=== PATIENT | female | born 1985 | race Two or more races ===

== ENCOUNTER 2021-01-08 12:07 | Outpatient (REF) | payer OTHER, SELFPAY ==
--- NOTE | ~2021-01-08 | XR_ITS ---
EXAMINATION: XR KNEE, LEFT CLINICAL INFORMATION: Pain COMPARISON: None TECHNIQUE: Four views of the left knee. FINDINGS: Bones and soft tissues are normal. No fracture or joint effusion. Alignment is anatomic. Joint spaces are well maintained. No abnormal soft tissue calcification. XR/XR knee LT 4V IMPRESSION: Normal left knee.
== END 2021-01-08 12:08 | disposition home or self-care (01) ==
LOC: HO.XRAY 12:07
PROVIDERS: PCP Pediatrics; Referring Provider Pediatrics; Visit Provider General Practice
DX: M25.562 Pain in left knee (principal); M79.89 Other specified soft tissue disorders
CPT/HCPCS: 73564

== ENCOUNTER 2022-08-14 11:29 | Outpatient (REF) | payer OTHER, SELFPAY ==
--- NOTE | 2022-08-14 08:45 | EMG_ITS ---
Please see scanned EMG / Nerve Conduction Report. MTDD
== END 2022-08-14 11:30 | disposition home or self-care (01) ==
LOC: HO.NEURO 11:29
PROVIDERS: PCP Pediatrics; Visit Provider Emergency Medicine
DX: G56.02 Carpal tunnel syndrome, left upper limb (principal)
CPT/HCPCS: 95885; 95913

== ENCOUNTER 2023-01-15 12:34 | Outpatient (REF) | payer OTHER, SELFPAY ==
[2023-01-15 15:17] LABS: Alanine Aminotransferase 26 U/L (0-31); Albumin Level 4.5 g/dL (3.5-5.0); Alkaline Phosphatase 72 U/L (39-117); Aspartate Amino Transferase 17 U/L (5-31); Bilirubin Direct 0.3 mg/dL (0.0-0.5); Bilirubin Total 0.6 mg/dL (0.0-1.0); Total Protein 7.5 g/dL (6.5-8.0)
[2023-01-15 15:37] LABS: TSH reflex Free T4 2.02 uIU/mL (0.32-4.0)
== END 2023-01-15 12:35 | disposition home or self-care (01) ==
LOC: HO.CHCLDS 12:34
PROVIDERS: Visit Provider Pediatrics
DX: B35.1 Tinea unguium (principal); G43.909 Migraine, unspecified, not intractable, without status migrainosus; F32.A Depression, unspecified
CPT/HCPCS: 36415; 80076; 84443

== ENCOUNTER 2023-01-21 11:57 | Outpatient (AMB) | payer OTHER, SELFPAY ==
--- NOTE | 2023-01-21 11:57 | A.OFFVIS_ITS ---
Intake Intake Visit Reasons: Issues w/urethra (seen teresa) Intake Note: New Patient presents for initial visit issues with urethra Urology Medications: none Blood Thinner: none Telecom Analyst Required: No Accompanied by: Self / Same As Patient Allergies cefaclor [From CECLOR] Allergy (Unknown, Unverified 01/21/23 12:22) ANGIOEDEMA Penicillins [PENICILLINS] Allergy (Unknown, Unverified 01/21/23 12:22) HIVES Medication List - Last Reconciled 01/21/23 by MARGARITA Celestin- budesonide-formoterol 160-4.5 mcg/actuation (Symbicort) 2 puffs inhalation BID buspirone 5 mg PO BID clonazepam 0.5 mg PO DAILY PRN gabapentin 300 mg PO BID sertraline 100 mg PO DAILY HPI HPI Comments History of Present Illness Details Edmond is a very pleasant 37-year-old female patient of Dr. Perdomo. She presents to the office today as a new patient for urethral stricture. In discussion with the patient today she reports to be feeling and doing well. She discusses her previous surgical history with Dr. Cagle in January of 2020 at which time she underwent dilation of urethral stricture in cystoscopy in the OR. She has been self catheterizing once per day and finds this to be helping. She states, If I dont catheterize myself I have to push to urinate or I have a hard time going to the bathroom. She otherwise denies any urinary issues or concerns. When asked she denies urinary urgency, urinary frequency, incontinence, nocturia, hematuria, dysuria, foul smelling urine, changes to urinary stream, flank pain, fever, and or chills. She is happy with her current voiding parameters when self catheterizing/dialating once daily. In office urinalysis results reviewed with the patient. Review of Systems Const All systems reviewed & are unremarkable except as noted in HPI and below Reports no additional complaints Eyes Reports no additional complaints ENT Reports no additional complaints Card Reports no additional complaints Resp Reports no additional complaints GI Reports no additional complaints Reports as per HPI Musc Reports no additional complaints Neuro Reports no additional complaints Psych Reports no additional complaints Endo Reports no additional complaints Hector/Lymph Reports no additional complaints Aller/Immun Reports no additional complaints Physical Exam Const General: cooperative, healthy appearing, comfortable, no acute distress, well developed, alert and awake Orientation/consciousness: patient oriented x3 Limitations: no limitations HEENT Head: Yes normal to inspection, Yes normocephalic and Yes atraumatic Ears: hearing grossly normal bilaterally Eyes General: appearance normal, both eyes and all related structures Neck Neck: Yes normal visual inspection and Yes trachea midline Chest Chest palpation & inspection: normal inspection of the chest Resp Effort & Inspection: normal respiratory effort and able to speak in complete sentences Cardio Rate: regular rate GI Inspection: Yes normal to inspection General: Yes no CVA tenderness External Female Exam: other (ureteral stricture ) Back/Spine/Pelvis Back: no CVA tenderness Skin General skin exam: no rashes or lesions noted Neuro General: patient oriented x3 Extrem General: Yes normal to inspection Psych Appearance: grossly normal and well kempt Mental Status: mental status grossly normal Speech and movement: Normal speech and movement present and Clear speech present Affect: normal affect Attitude: cooperative Thought process: Normal thought process present Thought content: Normal thought content present Insight: Good insight present (Psych) Judgement: Good judgement present (Psych) Results AMB Urinalysis, Automated UA Leukoctes 15 Miquel/uL Last Edit by [employer] on 01/21/23 12:12 UA Nitrite Last Edit by [employer] on 01/21/23 12:12 UA Urobilinogen 0.2 mg/dL Last Edit by [employer] on 01/21/23 12:12 UA Protein 0 mg/dL Last Edit by [employer] on 01/21/23 12:12 UA pH 6.0 Last Edit by [employer] on 01/21/23 12:12 UA Blood 10 [place]/uL Last Edit by [employer] on 01/21/23 12:12 UA Specific [place] 1.030 Last Edit by [employer] on 01/21/23 12:12 UA Ketone Last Edit by [employer] on 01/21/23 12:12 UA Bilirubin 0 mg/dL Last Edit by [employer] on 01/21/23 12:12 UA Glucose 0 mg/dL Last Edit by [employer] on 01/21/23 12:12 Results Reviewed Results Reviewed: Laboratory Last Values Urine pH (Auto) 6.0 01/21/23 11:59 Specific [place] (Auto) 1.030 01/21/23 11:59 Urine Protein (Auto) 0 mg/dL 01/21/23 11:59 Glucose (UA)(Auto) 0 mg/dL 01/21/23 11:59 Urine Blood (Auto) 10 [place]/uL 01/21/23 11:59 Urine Bilirubin (Auto) 0 mg/dL 01/21/23 11:59 Urine Urobilinogen (Auto) 0.2 mg/dL 01/21/23 11:59 Leukocyte Esterase (Auto) 15 Miquel/uL 01/21/23 11:59 Assessment & Plan Assessment & Plan (1) History of urethral stricture: Code(s): Z87.448 - Personal history of other diseases of urinary system (2) Unspecified urethral stricture, female: Code(s): N35.92 - Unspecified urethral stricture, female Plan In office urinalysis results reviewed with the patient today; as noted above Patient in need of 16 macedonian daily catheter. Patient will self dilate with 16 macedonian catheter once daily as discussed. Script for catheters will be sent to [facility] in [place] as requested. Patient otherwise denies any urinary issues or concerns at this time. Follow up in one year; or sooner with any questions, concerns, or issues. Orders: Orders AMB Urinalysis Automated Today Z13.9 - Encounter for screening, unspecified Patient Instructions: The patient had an opportunity to ask questions regarding the treatment plan. All questions were answered. Physical exam, labs, and imaging were discussed and reviewed in detail. As well as risks, benefits, and discussion of treatment choices. No major barriers to understanding were identified. The patient expressed understanding and agreement with the above treatment plan. The patient was made aware they should contact our office by phone for worsening of their current condition, the appearance of new symptoms, or with any questions or concerns. Compliance is encouraged with any medications and follow up testing that is ordered. It is a privilege to be allowed the opportunity to participate in? your urological care.? Again, if you have any questions or concerns If you have any questions or concerns please do not hesitate to contact me. The office is [phone]. This note is constructed using voice recognition software. While every effort has been made to ensure accuracy hydraulic chair assembler errors may have been included. Yours sincerely, DIANNA Celestin Coding Level of Care Code New Pt Level 3 (43519) Diagnoses History of urethral stricture Z87.448 Unspecified urethral stricture, female N35.92
== END 2023-01-21 12:19 | disposition home or self-care (01) ==
PROVIDERS: PCP Pediatrics; Visit Provider Nurse Practitioner Family
DX: Z87.448 Personal history of other diseases of urinary system (principal); N35.92 Unspecified urethral stricture, female
CPT/HCPCS: 99203

== ENCOUNTER → 2023-01-21 11:57 | Outpatient (BNVA) | payer OTHER, SELFPAY | PROVIDERS: PCP Pediatrics; Visit Provider Nurse Practitioner Family | DX: N35.92 Unspecified urethral stricture, female (principal); Z87.448 Personal history of other diseases of urinary system | CPT/HCPCS: 99202 ==

== ENCOUNTER 2024-01-16 10:29 | Outpatient (REF) | payer OTHER, SELFPAY ==
[2024-01-16 14:00] LABS: MANUAL DIFF FLAG NO
[2024-01-16 14:05] LABS: Basophils Percent Auto 0.5 % (0-2); Eosinophils Absolute Auto 0.1 X10*3/uL (0.0-0.4); Eosinophils Percent Auto 1.8 % (0-4); Hemoglobin 14.6 g/dl (12.0-16.0); Imm Gran Abs Auto 0.02 X10*3/uL (0.00-0.03); Imm Gran Pct Auto 0.4 % (0.0-0.4); Lymphocytes Absolute Auto 1.1 X10*3/uL (1.2-4.9); Lymphocytes Percent Auto 20.2 % (20-40); Mean Corpuscular HGB Conc 34.8 g/dl (31.0-35.0); Mean Corpuscular Hemoglobin 31.1 pg (27.0-33.0); Mean Corpuscular Volume 89.4 fL (80.0-98.0); Mean Platelet Volume 11.1 fL (9.4-12.3); Monocytes Absolute Auto 0.4 X10*3/uL (0.1-1.2); Monocytes Percent Auto 6.8 % (2-11); Neutrophils Absolute Auto 3.9 x10*3/uL (2.0-8.3); Neutrophils Percent Auto 70.3 % (45-73); Platelet Count 261 X10*3/uL (160-400); White Blood Count 5.6 X10*3/uL (4.8-10.8)
[2024-01-16 14:25] LABS: Anion Gap 10 (12-20); Blood Urea Nitrogen 8 mg/dL (9-16); Calcium 9.4 mg/dL (8.4-10.2); Carbon Dioxide 26 mmol/L (22-29); Chloride 107 mmol/L (96-108); Estimated Glomerular Filt Rate > 60; Glucose Fasting 95 mg/dL (60-99); Potassium 4.2 mmol/L (3.3-5.1); Sodium 139 mmol/L (135-145)
[2024-01-16 14:42] LABS: TSH reflex Free T4 2.27 uIU/mL (0.32-4.0)
[2024-01-16 14:49] LABS: Erythrocyte Sedimentation Rate 8 MM/HR (0-20)
[2024-01-18 03:50] LABS: Syphilis Screen Nonreactive (Nonreactive)
[2024-01-18 04:18] LABS: HIV AB/AG Nonreactive (Nonreactive); HIV Num 1 0.06 S/CO (0.00-0.99); ~HepC Num1 0.18 S/CO (0.00-0.79); ~Hepatitis C Antibody Nonreactive (Nonreactive)
[2024-01-19 09:18] LABS: Immunoglobulin M 240 mg/dL (50-300)
[2024-01-19 11:43] LABS: Anti Nuclear Antibody Screen NEGATIVE (NEGATIVE)
[2024-01-19 16:44] LABS: Herpes Simplex Type 2 IgG <0.90 index
[2024-01-20 15:04] LABS: C.Trachomatis RNA TMA, Rectal NOT DETECTED; N.Gonorrhoeae RNA TMA, Rectal NOT DETECTED
== END 2024-01-16 10:30 | disposition home or self-care (01) ==
LOC: HO.CHCLDS 10:29
PROVIDERS: Visit Provider Pediatrics
DX: R21 Rash and other nonspecific skin eruption (principal)
CPT/HCPCS: 36415; 80048; 82784; 84443; 85025; 85652; 86038; 86695; 86696; 86780; 86803; 87389; 87491; 87591

== ENCOUNTER 2024-01-19 08:40 | Outpatient (AMB) | payer OTHER, SELFPAY ==
--- NOTE | 2024-01-19 08:44 | A.OFFVIS_ITS ---
Intake Visit Reasons: 1yr follow up Intake Note: Patient presents for follow up visit on: urethral stricture Urology Medications: none Blood Thinner: none PVR: * Patient CIC* Business Investor Required: No Accompanied by: Self / Same As Patient Allergies cefaclor [From CECLOR] Allergy (Unknown, Unverified 01/19/24 09:23) ANGIOEDEMA Penicillins [PENICILLINS] Allergy (Unknown, Unverified 01/19/24 09:23) HIVES Medication List - Last Reconciled 01/19/24 by MARGARITA Celestin- albuterol sulfate 90 mcg/actuation inhalation budesonide-formoterol 160-4.5 mcg/actuation (Symbicort) 2 puffs inhalation BID buspirone 5 mg PO BID catheter As directed once daily for urethral dilation clonazepam 0.5 mg PO DAILY PRN gabapentin 300 mg PO BID sertraline 100 mg PO DAILY tadalafil (Cialis) 5 mg PO DAILY 90 days HPI Comments Details: Edmond is a very pleasant 38-year-old female patient of Dr. Perdomo. She presents to the office today for follow-up of her urethral stricture and incomplete bladder emptying. In discussion with the patient today she reports to be feeling and doing well. She reports since her last office visit here approximately 1 year ago she has had 1 urinary tract infection while in [place] visiting her mom. She discusses continuing to CIC up to 3 times per day. She reports noting ongoing issues with bladder pressure and pain at her urethra upon catheterization. She has a previous surgical history with Dr. Cagle in January of 2020 at which time she underwent dilation of urethral stricture in cystoscopy in the OR. She denies urinary urgency, urinary frequency, incontinence, nocturia, hematuria, foul smelling urine, changes to urinary stream, flank pain, fever, and or chills. In office urinalysis results reviewed with the patient. PVR 0ml's. Review of Systems Const All systems reviewed & are unremarkable except as noted in HPI and below Reports no additional complaints Eyes Reports no additional complaints ENT Reports no additional complaints Card Reports no additional complaints Resp Reports no additional complaints GI Reports no additional complaints Reports as per HPI Musc Reports no additional complaints Neuro Reports no additional complaints Psych Reports no additional complaints Endo Reports no additional complaints Hector/Lymph Reports no additional complaints Aller/Immun Reports no additional complaints Physical Exam Const General: cooperative, healthy appearing, comfortable, no acute distress, well developed, alert and awake Orientation/consciousness: patient oriented x3 Limitations: no limitations HEENT Head: Yes normal to inspection, Yes normocephalic and Yes atraumatic Ears: hearing grossly normal bilaterally Eyes General: appearance normal, both eyes and all related structures Neck Neck: Yes normal visual inspection and Yes trachea midline Chest Chest palpation & inspection: normal inspection of the chest Resp Effort & Inspection: normal respiratory effort and able to speak in complete sentences Cardio Rate: regular rate GI Inspection: Yes normal to inspection General: Yes no CVA tenderness External Female Exam: other (ureteral stricture ) Back/Spine/Pelvis Back: no CVA tenderness Skin General skin exam: no rashes or lesions noted Neuro General: patient oriented x3 Extrem General: Yes normal to inspection Psych Appearance: grossly normal and well kempt Mental Status: mental status grossly normal Speech and movement: Normal speech and movement present and Clear speech present Affect: normal affect Attitude: cooperative Thought process: Normal thought process present Thought content: Normal thought content present Insight: Fair insight present (Psych) Judgement: Fair judgement present (Psych) Office Procedures Post Void Residual Post Residual Void Post Void Residual (PVR): [id number] Void Residual by ultrasound Results AMB Urinalysis, Automated UA Leukoctes 15 Miquel/uL Last Edit by Katina Alexander on 01/19/24 09:09 UA Nitrite Negative Last Edit by Katina Alexander on 01/19/24 09:09 UA Urobilinogen 0.2 mg/dL Last Edit by [employer] Alexander on 01/19/24 09:09 UA Protein 15 mg/dL Last Edit by Katina Alexander on 01/19/24 09:09 UA pH 6.0 Last Edit by Katina Alexander on 01/19/24 09:09 UA Blood 80 [place]/uL Last Edit by Katina Alexander on 01/19/24 09:09 UA Specific [place] 1.025 Last Edit by Katina Alexander on 01/19/24 09:09 UA Ketone Negative Last Edit by Katina Alexander on 01/19/24 09:09 UA Bilirubin 0 mg/dL Last Edit by Katina Alexander on 01/19/24 09:09 UA Glucose 0 mg/dL Last Edit by Katina Alexander on 01/19/24 09:09 Results Reviewed Results Reviewed: Laboratory Last Values Urine pH (Auto) 6.0 01/19/24 08:54 Specific [place] (Auto) 1.025 01/19/24 08:54 Urine Protein (Auto) 15 mg/dL 01/19/24 08:54 Glucose (UA)(Auto) 0 mg/dL 01/19/24 08:54 Urine Ketones (Auto) Negative 01/19/24 08:54 Urine Blood (Auto) 80 [place]/uL 01/19/24 08:54 Urine Nitrite (Auto) Negative 01/19/24 08:54 Urine Bilirubin (Auto) 0 mg/dL 01/19/24 08:54 Urine Urobilinogen (Auto) 0.2 mg/dL 01/19/24 08:54 Leukocyte Esterase (Auto) 15 [place]iqu[place]/uL 01/19/24 08:54 Assessment & Plan Assessment & Plan (1) Unspecified urethral stricture, female: Code(s): N35.92 - Unspecified urethral stricture, female Category: Medical (2) History of urethral stricture: Code(s): Z87.448 - Personal history of other diseases of urinary system Category: Medical Plan In office urinalysis results reviewed with the patient today; as noted above. Start Cialis as discussed and prescribed. Discussed at length potential causes of lower urinary tract symptoms patient is experiencing. Discussed possible near future in office cystoscopy for further assessment evaluation. Will obtain retroperitoneal ultrasound for further assessment evaluation. PVR 0 mL. Continue to CIC up to 3 times per day. Follow-up in 1-3 months with imaging to be completed prior and PVR at next office visit; or sooner with any issues, concerns, and or questions. Orders: Orders AMB Urinalysis Automated Today Z13.9 - Encounter for screening, unspecified AMB Post Void Residual by ultrasound Today N35.92 - Unspecified urethral stricture, female US retroperitoneal comp Today N35.92 - Unspecified urethral stricture, female, R33.9 - Retention of urine, unspecified, Z87.448 - Personal history of other diseases of urinary system Medications: New tadalafil (Cialis) [id number] [facility] [id number] Member [id number] 5 mg PO DAILY 90 tabs 0RF 90 days Patient Instructions: The patient had an opportunity to ask questions regarding the treatment plan. All questions were answered. Physical exam, labs, and imaging were discussed and reviewed in detail. As well as risks, benefits, and discussion of treatment choices. No major barriers to understanding were identified. The patient expressed understanding and agreement with the above treatment plan. The patient was made aware they should contact our office by phone for worsening of their current condition, the appearance of new symptoms, or with any questions or concerns. Compliance is encouraged with any medications and follow up testing that is ordered. It is a privilege to be allowed the opportunity to participate in? your urological care.? Again, if you have any questions or concerns If you have any questions or concerns please do not hesitate to contact me. The office is [phone]. This note is constructed using voice recognition software. While every effort has been made to ensure accuracy business office assistant errors may have been included. Yours sincerely, MARGARITA Celestin-YOLANDA Coding Level of Care Code Est Pt Level 4 (37949) Diagnoses Unspecified urethral stricture, female N35.92 History of urethral stricture Z87.448 CPT Codes Post Residual Void - PVR CPT Code: 79724-[id number] Void Residual by ultrasound ([id number])
== END 2024-01-19 09:21 | disposition home or self-care (01) ==
PROVIDERS: PCP Pediatrics; Visit Provider Nurse Practitioner Family
DX: N35.92 Unspecified urethral stricture, female (principal); Z87.448 Personal history of other diseases of urinary system; Z13.9 Encounter for screening, unspecified
CPT/HCPCS: 99214

== ENCOUNTER 2024-01-19 08:40 | Outpatient (REF) | payer OTHER, SELFPAY ==
[2024-01-19 16:11] LABS: Urine Cytology See Pathology rpt
== END 2024-01-19 08:41 | disposition home or self-care (01) ==
LOC: HO.LNP 08:40
PROVIDERS: PCP Pediatrics; Visit Provider Nurse Practitioner Family
DX: R33.9 Retention of urine, unspecified (principal); N35.92 Unspecified urethral stricture, female; Z87.448 Personal history of other diseases of urinary system; Z13.9 Encounter for screening, unspecified
CPT/HCPCS: 51798; 81003; 88112; 99212

== ENCOUNTER 2024-01-23 10:49 | Outpatient (REF) | payer OTHER, SELFPAY ==
--- NOTE | ~2024-01-23 | US_ITS ---
EXAMINATION: US RETROPERITONEAL COMPLETE (RENAL) CLINICAL INFORMATION: Unspecified urethral stricture, female. COMPARISON: Renal ultrasound 01/29/2018. TECHNIQUE: Real-time imaging of the kidneys and bladder. Limited visualization due to bowel gas. FINDINGS: RIGHT KIDNEY: 10.1 x 5.0 x 4.3 cm (SAG x AP x TRV). No hydronephrosis. No renal calculi. Renal cortical thickness is normal. Limited visualization. LEFT KIDNEY: 9.7 x 5.7 x 5.1 cm (SAG x AP x TRV). Mild fullness left renal collecting system. No renal calculi. Renal cortical thickness is normal. Limited visualization. BLADDER: Moderately well distended. Bilateral ureteral jets are demonstrated. Prevoid bladder volume is 124 mL. Postvoid bladder volume is 2.9 mL. US/US retroperitoneal comp IMPRESSION: Mild fullness left renal collecting system. No renal calculi appreciated. Electronically signed by: Helen Smith MD 02/23/2024 11:21 AM EDT
== END 2024-01-23 10:50 | disposition home or self-care (01) ==
LOC: HO.US 10:49
PROVIDERS: PCP Pediatrics; Visit Provider Nurse Practitioner Family
DX: N35.92 Unspecified urethral stricture, female (principal); R33.9 Retention of urine, unspecified; Z87.448 Personal history of other diseases of urinary system
CPT/HCPCS: 76770

== ENCOUNTER 2024-03-25 09:17 | Outpatient (AMB) | payer OTHER, SELFPAY ==
--- NOTE | 2024-03-25 09:19 | A.OFFVIS_ITS ---
Intake Visit Reasons: 2m/US(set) Intake Note: Patient presents for follow up visit on: urethral stricture Urology Medications: none Blood Thinner: none * Patient CIC* Beekeeper Required: No Accompanied by: Self / Same As Patient Allergies cefaclor [From CECLOR] Allergy (Unknown, Unverified 03/25/24 09:48) ANGIOEDEMA Penicillins [PENICILLINS] Allergy (Unknown, Unverified 03/25/24 09:48) HIVES Medication List - Last Reconciled 03/25/24 by MARGARITA Celestin- albuterol sulfate 90 mcg/actuation inhalation budesonide-formoterol 160-4.5 mcg/actuation (Symbicort) 2 puffs inhalation BID buspirone 5 mg PO BID catheter As directed once daily for urethral dilation clonazepam 0.5 mg PO DAILY PRN gabapentin 300 mg PO BID nitrofurantoin macrocrystal 100 mg PO BID 7 days phenazopyridine 100 mg PO Q8H 6 doses sertraline 100 mg PO DAILY HPI Comments Details: Edmond is a very pleasant 38-year-old female patient of Dr. Perdomo. She presents to the office today for follow-up of her urethral stricture and incomplete bladder emptying. In discussion with the patient today she reports to be feeling and doing well. Of note, patient was seen approximately 2 months ago at which time a renal ultrasound was ordered for further assessment evaluation. These results were reviewed with the patient today. Bilateral kidneys with no calculi and or hydronephrosis. BUN: 01/30 Creatinine: 24 She continues to CIC typically at night while in the shower. She reports her main concern is dysuria she experiences status post catheterization. She reports typically she experiences episodes of dysuria 1-2 urinations after she dilates her urethra and finds this somewhat bothersome. She also reports noting intermittent episodes of UTI like symptoms with urge, frequency, and dysuria. She currently denies any bothersome urinary issues at this time however reports symptoms very data day. She has a previous surgical history with Dr. Cagle in January of 2020 at which time she underwent dilation of urethral stricture in cystoscopy in the OR. She currently denies urinary urgency, urinary frequency, incontinence, nocturia, hematuria, foul smelling urine, changes to urinary stream, flank pain, fever, and or chills. She reports having stopped 5 mg of Cialis daily for bladder stability as she had been experiencing heartburn. She otherwise offers no other issues or concerns at this time. Review of Systems Const All systems reviewed & are unremarkable except as noted in HPI and below Reports no additional complaints Eyes Reports no additional complaints ENT Reports no additional complaints Card Reports no additional complaints Resp Reports no additional complaints GI Reports no additional complaints Reports as per HPI Musc Reports no additional complaints Neuro Reports no additional complaints Psych Reports no additional complaints Endo Reports no additional complaints Hector/Lymph Reports no additional complaints Aller/Immun Reports no additional complaints Physical Exam Const General: cooperative, healthy appearing, comfortable, no acute distress, well developed, alert and awake Orientation/consciousness: patient oriented x3 Limitations: no limitations HEENT Head: Yes normal to inspection, Yes normocephalic and Yes atraumatic Ears: hearing grossly normal bilaterally Eyes General: appearance normal, both eyes and all related structures Neck Neck: Yes normal visual inspection and Yes trachea midline Chest Chest palpation & inspection: normal inspection of the chest Resp Effort & Inspection: normal respiratory effort and able to speak in complete sentences Cardio Rate: regular rate GI Inspection: Yes normal to inspection General: Yes no CVA tenderness External Female Exam: other (ureteral stricture ) Back/Spine/Pelvis Back: no CVA tenderness Skin General skin exam: no rashes or lesions noted Neuro General: patient oriented x3 Extrem General: Yes normal to inspection Psych Appearance: grossly normal and well kempt Mental Status: mental status grossly normal Speech and movement: Normal speech and movement present and Clear speech present Affect: normal affect Attitude: cooperative Thought process: Normal thought process present Thought content: Normal thought content present Insight: Fair insight present (Psych) Judgement: Fair judgement present (Psych) Results Reviewed Results Reviewed: Date of Service: 01/23/24 EXAMINATION: US RETROPERITONEAL COMPLETE (RENAL) FINDINGS: RIGHT KIDNEY: 10.1 x 5.0 x 4.3 cm (SAG x AP x TRV). No hydronephrosis. No renal calculi. Renal cortical thickness is normal. Limited visualization. LEFT KIDNEY: 9.7 x 5.7 x 5.1 cm (SAG x AP x TRV). Mild fullness left renal collecting system. No renal calculi. Renal cortical thickness is normal. Limited visualization. BLADDER: Moderately well distended. Bilateral ureteral jets are demonstrated. Prevoid bladder volume is 124 mL. Postvoid bladder volume is 2.9 mL. IMPRESSION: Mild fullness left renal collecting system. No renal calculi appreciated. Assessment & Plan Assessment & Plan (1) Incomplete bladder emptying: Code(s): R33.9 - Retention of urine, unspecified Category: Medical (2) Unspecified urethral stricture, female: Code(s): N35.92 - Unspecified urethral stricture, female Category: Medical (3) History of urethral stricture: Code(s): Z87.448 - Personal history of other diseases of urinary system Category: Medical Plan Recent renal imaging results reviewed with the patient today; as noted above. Recent BUN and creatinine results reviewed with the patient today; as noted above. Stop Cialis. Prescription provided for UTI prescription; however discussed importance of collecting urine and or calling office prior to initiation of medication. Continue to catheterize 1 time per day as discussed. Discussed UTI prevention with D mannose supplement, vitamin-C, increasing fluid intake, behavioral therapy with timed voiding, perineal hygiene and postcoital voiding, and management of constipation with stool softeners and increased fiber intake. Follow-up in 3 months; or sooner with any issues, concerns, and or questions. Medications: New phenazopyridine 100 mg PO Q8H 6 doses 6 tabs 2RF M54.50 - Low back pain, unspecified, R31.9 - Hematuria, unspecified nitrofurantoin macrocrystal must administer with a meal/food 100 mg PO BID 7 days 14 caps 3RF N39.0 - Urinary tract infection, site not specified Discontinued tadalafil (Cialis) [id number] [facility] [id number] Member [id number] Discontinued Reason: Doctor's Order 5 mg PO DAILY 90 days 90 tabs 0RF Patient Instructions: The patient had an opportunity to ask questions regarding the treatment plan. All questions were answered. Physical exam, labs, and imaging were discussed and reviewed in detail. As well as risks, benefits, and discussion of treatment choices. No major barriers to understanding were identified. The patient expre ssed understanding and agreement with the above treatment plan. The patient was made aware they should contact our office by phone for worsening of their current condition, the appearance of new symptoms, or with any questions or concerns. Compliance is encouraged with any medications and follow up testing that is ordered. It is a privilege to be allowed the opportunity to participate in? your urological care.? Again, if you have any questions or concerns If you have any questions or concerns please do not hesitate to contact me. The office is [phone]. This note is constructed using voice recognition software. While every effort has been made to ensure accuracy supervisor specialty plant errors may have been included. Yours sincerely, DIANNA Celestin Coding Level of Care Code Est Pt Level 4 (25753) Diagnoses Incomplete bladder emptying R33.9 Unspecified urethral stricture, female N35.92 History of urethral stricture Z87.448 Time Spent (min) 30
== END 2024-03-25 09:49 | disposition home or self-care (01) ==
PROVIDERS: PCP Pediatrics; Visit Provider Nurse Practitioner Family
DX: R33.9 Retention of urine, unspecified (principal); N35.92 Unspecified urethral stricture, female; Z87.448 Personal history of other diseases of urinary system
CPT/HCPCS: 99214

== ENCOUNTER → 2024-03-25 09:17 | Outpatient (BNVA) | payer OTHER, SELFPAY | PROVIDERS: PCP Pediatrics; Visit Provider Nurse Practitioner Family | DX: R33.9 Retention of urine, unspecified (principal); N35.92 Unspecified urethral stricture, female; Z87.448 Personal history of other diseases of urinary system | CPT/HCPCS: 99212 ==

== ENCOUNTER 2024-06-04 14:46 | Outpatient (REF) | payer OTHER, SELFPAY | END 2024-06-04 14:47 | disposition home or self-care (01) | LOC: HO.CHCLNP 14:46 | PROVIDERS: Visit Provider Pediatrics | DX: L02.32 Furuncle of buttock (principal) | CPT/HCPCS: 87070; 87205 ==

== ENCOUNTER 2024-07-01 09:16 | Outpatient (AMB) | payer OTHER, SELFPAY ==
--- NOTE | 2024-07-01 09:32 | A.OFFVIS_ITS ---
Intake Visit Reasons: 3 month follow up Intake Note: Patient presents for follow up visit on: urethral stricture Urology Medications: none Blood Thinner: none * Patient CIC* Event Crew Technician Required: No Accompanied by: Self / Same As Patient Allergies cefaclor [From CECLOR] Allergy (Unknown, Unverified 07/01/24 10:06) ANGIOEDEMA Penicillins [PENICILLINS] Allergy (Unknown, Unverified 07/01/24 10:06) HIVES Medication List - Last Reconciled 07/01/24 by MARGARITA Celestin- albuterol sulfate 90 mcg/actuation inhalation budesonide-formoterol 160-4.5 mcg/actuation (Symbicort) 2 puffs inhalation BID buspirone 5 mg PO BID catheter As directed once daily for urethral dilation clonazepam 0.5 mg PO DAILY PRN gabapentin 300 mg PO BID sertraline 100 mg PO DAILY HPI Comments Details: Edmond is a very pleasant 39-year-old female patient of Dr. Perdomo. She presents to the office today for follow-up of her urethral stricture and incomplete bladder emptying. In discussion with the patient today she reports to be feeling and doing well. She reports feeling urojet prior to intermittent catheterization has been helpful in pain and dysuria she had been experiencing. She does report having had an episode of UTI like symptoms and following up with her PCP at which time she was noted to have a urinary tract infection. She currently denies any bothersome urinary issues. She denies any UTI like symptoms at this time. In office urinalysis results reviewed with the patient today. She continues to dilate for urethral stricture. She discusses her upcoming appointment with her PCP to discuss weight management. Previous workup has included a retroperitoneal ultrasound 01/30 noting bilateral kidneys with no calculi and or hydronephrosis. Moderately well distended. Bilateral ureteral jets are demonstrated. Prevoid bladder volume is 124 mL. Postvoid bladder volume is 3 mL. BUN: 01/30 8 Creatinine: 01/30 0.71 She continues to dilate at night while in the shower. She has a previous surgical history with Dr. Cagle in January of 2020 at which time she underwent dilation of urethral stricture in cystoscopy in the OR. She currently denies urinary urgency, urinary frequency, incontinence, nocturia, hematuria, foul smelling urine, changes to urinary stream, flank pain, fever, and or chills. She previously trialed 5 mg of Cialis daily for bladder stability however experienced heartburn therefore this was discontinued. She otherwise offers no other issues or concerns at this time. Review of Systems Const All systems reviewed & are unremarkable except as noted in HPI and below Reports no additional complaints Eyes Reports no additional complaints ENT Reports no additional complaints Card Reports no additional complaints Resp Reports no additional complaints GI Reports no additional complaints Reports as per HPI Musc Reports no additional complaints Neuro Reports no additional complaints Psych Reports no additional complaints Endo Reports no additional complaints Hector/Lymph Reports no additional complaints Aller/Immun Reports no additional complaints Physical Exam Const General: cooperative, healthy appearing, comfortable, no acute distress, well developed, alert and awake Orientation/consciousness: patient oriented x3 Limitations: no limitations HEENT Head: Yes normal to inspection, Yes normocephalic and Yes atraumatic Ears: hearing grossly normal bilaterally Eyes General: appearance normal, both eyes and all related structures Neck Neck: Yes normal visual inspection and Yes trachea midline Chest Chest palpation & inspection: normal inspection of the chest Resp Effort & Inspection: normal respiratory effort and able to speak in complete sentences Cardio Rate: regular rate GI Inspection: Yes normal to inspection General: Yes no CVA tenderness External Female Exam: other (ureteral stricture ) Back/Spine/Pelvis Back: no CVA tenderness Skin General skin exam: no rashes or lesions noted Neuro General: patient oriented x3 Extrem General: Yes normal to inspection Psych Appearance: grossly normal and well kempt Mental Status: mental status grossly normal Speech and movement: Normal speech and movement present and Clear speech present Affect: normal affect Attitude: cooperative Thought process: Normal thought process present Thought content: Normal thought content present Insight: Fair insight present (Psych) Judgement: Fair judgement present (Psych) Results AMB Urinalysis, Automated UA Leukoctes 0 [place]/uL Last Edit by Katina Alexander on 07/01/24 09:55 UA Nitrite Negative Last Edit by Katina Alexander on 07/01/24 09:55 UA Urobilinogen 0.2 mg/dL Last Edit by Katina Alexander on 07/01/24 09:55 UA Protein 15 mg/dL Last Edit by Katina Alexander on 07/01/24 09:55 UA pH 6.0 Last Edit by Katina Alexander on 07/01/24 09:55 UA Blood 10 [place]/uL Last Edit by Katina Alexander on 07/01/24 09:55 UA Specific [place] 1.030 Last Edit by Katina Alexander on 07/01/24 09:55 UA Ketone Negative Last Edit by Katina Alexander on 07/01/24 09:55 UA Bilirubin 0 mg/dL Last Edit by Katina Alexander on 07/01/24 09:55 UA Glucose 0 mg/dL Last Edit by Katina Alexander on 07/01/24 09:55 Assessment & Plan Assessment & Plan (1) Incomplete bladder emptying: Code(s): R33.9 - Retention of urine, unspecified Category: Medical (2) Unspecified urethral stricture, female: Code(s): N35.92 - Unspecified urethral stricture, female Category: Medical (3) History of urethral stricture: Code(s): Z87.448 - Personal history of other diseases of urinary system Category: Medical Plan Continue to dilate as discussed. Discussed UTI prevention with D mannose supplement, vitamin-C, increasing fluid intake, behavioral therapy with timed voiding, perineal hygiene and postcoital voiding, and management of constipation with stool softeners and increased fiber intake. We discussed further treatment options to include repeat dilatation versus surveillance monitoring. She currently denies any UTI like symptoms. Follow-up in 3 months; or sooner with any issues, concerns, and or questions. Orders: Orders AMB Urinalysis Automated Today Z13.9 - Encounter for screening, unspecified Patient Instructions: The patient had an opportunity to ask questions regarding the treatment plan. All questions were answered. Physical exam, labs, and imaging were discussed and reviewed in detail. As well as risks, benefits, and discussion of treatment choices. No major barriers to understanding were identified. The patient expressed understanding and agreement with the above treatment plan. The patient was made aware they should contact our office by phone for worsening of their current condition, the appearance of new symptoms, or with any questions or concerns. Compliance is encouraged with any medications and follow up testing that is ordered. It is a privilege to be allowed the opportunity to participate in? your urological care.? Again, if you have any questions or concerns If you have any questions or concerns please do not hesitate to contact me. The office is [phone]. This note is constructed using voice recognition software. While every effort has been made to ensure accuracy polysomnographer errors may have been included. Yours sincerely, DIANNA Celestin Coding Level of Care Code Est Pt Level 3 (10412) Diagnoses Incomplete bladder emptying R33.9 Unspecified urethral stricture, female N35.92 History of urethral stricture Z87.448
== END 2024-07-01 10:16 | disposition home or self-care (01) ==
PROVIDERS: PCP Pediatrics; Visit Provider Nurse Practitioner Family
DX: R33.9 Retention of urine, unspecified (principal); N35.92 Unspecified urethral stricture, female; Z87.448 Personal history of other diseases of urinary system; Z13.9 Encounter for screening, unspecified
CPT/HCPCS: 99213

== ENCOUNTER → 2024-07-01 09:16 | Outpatient (BNVA) | payer OTHER, SELFPAY | PROVIDERS: PCP Pediatrics; Visit Provider Nurse Practitioner Family | DX: N35.92 Unspecified urethral stricture, female (principal); R33.9 Retention of urine, unspecified; Z87.448 Personal history of other diseases of urinary system | CPT/HCPCS: 81003; 99212 ==

== ENCOUNTER 2024-08-19 02:45 | Inpatient (IN) | payer OTHER, SELFPAY ==
[2024-08-19] VITALS (10 sets, daily range): BP systolic 107–143; BP diastolic 46–86; PULSE 70–101; RESP 16–24; TEMP 36.4–37; O2SAT 95–99; BMI 37.1; BMI 39.9
--- NOTE | ~2024-08-19 | CT_ITS ---
CLINICAL HISTORY: R flank pain CT abdomen and pelvis without contrast Comparison: None Findings: No consolidation or effusion. There is right-sided obstructive uropathy with mild hydroureteronephrosis and an obstructing 3 mm calculus at the right ureterovesicular junction. The rest of the solid organs are unremarkable. No bowel obstruction, pneumoperitoneum, or pneumatosis. Postoperative changes are seen in the right lower quadrant related to appendectomy. The uterus is leiomyomatous. An IUD is present. The bones are intact. IMPRESSION: There is right-sided obstructive uropathy with mild hydroureteronephrosis and an obstructing 3 mm calculus at the right ureterovesicular junction. This document has been electronically signed by: Mane Aiken MD on 08/19/2024 05:14:03
--- NOTE | ~2024-08-19 | FL_ITS ---
EXAMINATION: FL GUIDANCE ONLY HISTORY: cysto, ureteroscopy, retro, laser Right COMPARISON: Correlation is made with a CT of the abdomen and pelvis without contrast dated 08/19/2024. TECHNIQUE: Fluoroscopy time: 33 seconds. Cumulative Dose: 7.94 mGy. Images: 6. FINDINGS: Images demonstrate placement of a right nephroureteral stent. FL/FL guidance in OR IMPRESSION: Fluoroscopy during procedure. Please see procedure report for additional information. Electronically signed by: Ramakrishna Mari MD 08/23/2024 07:16 AM EDT
--- NOTE | 2024-08-19 03:16 | ED_ITS ---
HPI - General Adult General Chief complaint: Abdominal Pain Stated complaint: abd pain, nausea Time Seen by Provider: 08/19/24 02:58 Source: patient Mode of arrival: ambulatory Limitations: no limitations History of Present Illness ED Provider: Dr. Fawn Pitts HPI narrative: patient comes to the emergency room complaining of severe right-sided flank pain, started approximately 7 hours ago. Patient states that she has been having intermittent pain, from the right flank down to the right lower quadrant. Patient states that she has history of appendectomy. Patient denies history of passing kidney stones. Denies hematuria or dysuria. Related Data Home Medications ?Medication ?Instructions ?Recorded ?Confirmed budesonide-formoterol HFA 160 2 puff inhalation BID 01/16/23 mcg-4.5 mcg/actuation aerosol inhaler (Symbicort) buspirone 5 mg tablet 5 mg PO BID 01/16/23 clonazepam 0.5 mg tablet 0.5 mg PO DAILY PRN 01/16/23 gabapentin 300 mg capsule 300 mg PO BID 01/16/23 sertraline 100 mg tablet 100 mg PO DAILY 01/16/23 albuterol sulfate 90 mcg/actuation inhalation 01/19/24 aerosol inhaler Previous Rx's ?Medication ?Instructions ?Recorded catheter 16 Fr #30 ea 08/03/24 ketorolac 10 mg tablet 10 mg PO Q8H PRN pain #10 tabs 08/19/24 ondansetron HCl 4 mg tablet 4 mg PO Q6H PRN nausea and 08/19/24 vomiting #14 tabs tamsulosin 0.4 mg capsule 0.4 mg PO DAILY #14 caps 08/19/24 Allergies Allergy/AdvReac Type Severity Reaction Status Date / Time Cephalosporins Allergy Severe Angioedema Verified 08/19/24 03:14 cefaclor [From CECLOR] Allergy Unknown ANGIOEDEMA Verified 08/19/24 02:50 Penicillins [PENICILLINS] Allergy Unknown HIVES Verified 08/19/24 02:50 Review of Systems 2 Review of Systems: Constitutional : No Weight loss, No Fever, No Chills, No Night Sweats, No Fatigue, No Malaise ENT/Mouth : No Hearing loss, No Ear Pain, No Nasal Congestion, No Sinus Pain, No Hoarseness, No sore throat, No Rhinorrhea, No Swallowing Difficulty Eyes: No Eye Pain, No Swelling, No Redness, No Foreign Body, No Discharge, No Vision Changes Cardiovascular : No Chest Pain, No SOB, No Dyspnea on Exertion, No Orthopnea, No Edema, No Palpitations Respiratory : No Cough, No Sputum, No Wheezing, No Smoke Exposure, No Dyspnea Gastrointestinal : No Nausea, No Vomiting, No Diarrhea, No Constipation, No abdominal Pain, No Hematochezia, No Melena Genitourinary : no irregular bleeding, No Dysuria, No Urinary Frequency, No Hematuria, No Urinary Incontinence, No Urgency, Complaining of right-sided Flank Pain, No Urinary Flow Changes, No Hesitancy Musculoskeletal : No joint pain, No Myalgias, No Joint Swelling Skin : No Skin Lesions, No rash Neuro : No Weakness, No Numbness, No Paresthesias, No Loss of Consciousness, No Dizziness, No Headache Psych : No Anxiety/Panic, No Depression, No SI/HI/AH/VH, No Social Issues, Heme/Lymph: No Bruising, No Bleeding,No Lymphadenopathy Endocrine : No Polyuria, No Polydipsia, No Temperature Intolerance [facility] Social History Social History Advance Directives: No Advance Directives Information Provided: Yes Do you have a plan to hurt others: No Plan Physical Exam ED Vital Signs: Vital Signs - 24 hr 08/19/24 02:48 08/19/24 03:51 08/19/24 05:56 Temperature 97.5 F 98.1 F Pulse Rate 101 H 78 Respiratory Rate 24 H 16 18 Blood Pressure 143/86 H 107/46 L Pulse Oximetry 96 95 Oxygen Delivery Method Room Air Room Air 08/19/24 06:24 Temperature 98.0 F Pulse Rate 83 Respiratory Rate 18 Blood Pressure 122/77 Pulse Oximetry 95 Oxygen Delivery Method Room Air BMI result Body Mass Index 37.1 Const Other: Appearance: Alert. Oriented X3. in pain, looks very uncomfortable, crying Eyes: Pupils equal, round and reactive to light. ENT: Pharynx normal. Neck: Normal inspection. Neck supple. No lymph nodes noted. No crepitus CVS: Normal heart rate and rhythm. Pulses normal. Normal S1 and S2 Respiratory: No respiratory distress. Breath sounds normal. No Wheezing. No rales Abdomen: Soft and nontender. No rigidity. No distention. Back: Pain to palpation in the right middle back area, in right flank Skin: Skin warm and dry. Normal skin color. Normal skin turgor. Extremities: No lower extremity edema. No Lacerations. No Rash Neuro: Oriented X 3. No motor deficit. No sensory deficit. Moving all extremities. No slurred speech. CN 2 through 12 grossly intact Psych: cooperative Course Course Course Narrative: patient receiving IV fluids, ketorolac and Zofran CT scan pending all of patient's labs pending Medications Administered Discontinued Medications Generic Name Dose Route Start Last Admin Trade Name Manuel PRN Reason Stop Dose Admin Sodium Chloride 1,000 mls @ 999 mls/hr 08/19/24 03:12 08/19/24 05:48 Ns IVCONT 08/19/24 04:12 Infused .Q1H1M ONE Infusion Ketorolac Tromethamine 30 mg 08/19/24 03:14 08/19/24 03:33 Ketorolac Tromethamine 30 Mg/Ml Vial IVPUSH 08/19/24 03:15 30 mg ONCE ONE Administration Levofloxacin 500 mg 08/19/24 05:21 08/19/24 05:51 Levofloxacin 500 Mg Tablet PO 08/19/24 05:22 500 mg ONCE ONE Administration Morphine Sulfate 4 mg 08/19/24 05:20 08/19/24 05:26 Morphine Sulfate 4 Mg/Ml Cartridge IVPUSH 08/19/24 05:21 4 mg ONCE ONE Administration Protocol Ondansetron HCl 4 mg 08/19/24 03:14 08/19/24 03:32 Ondansetron Hcl 4 Mg/2 Ml Vial IVPUSH 08/19/24 03:15 4 mg ONCE ONE Administration Tamsulosin HCl 0.4 mg 08/19/24 05:20 08/19/24 05:51 Tamsulosin Hcl 0.4 Mg Capsule PO 08/19/24 05:21 0.4 mg ONCE ONE Administration Medical Decision Making Medical Decision Making [facility] Narrative: my interpretation of labs: Normal hematology and chemistry. Urinalysis has trace leukocyte esterase, a significant amount of squamous epithelial cells +3 bacteria. , likely contaminant. CT scan of the abdomen shows 3 mm calculus in the right ureterovesicular junction patient already received ketorolac, morphine and Dilaudid. Patient's pain does not improve, patient may need to be admitted. I discussed the patient with Dr. Cochran who will be taking over the care of the patient. Differential Diagnosis Differential Diagnoses: The differential diagnosis associated with the presentation includes ( Pyelonephritis, UTI, musculoskeletal pain, ureterolithiasis) Admission/Observation Consideration of admission/observation: Escalation of care including admission/observation considered ( given patient's amount of pain, admission has been considered) Lab Data MDM Lab Attestation statement: I reviewed the patient's lab results. 08/19/24 03:25 08/19/24 03:18 Labs: Lab Results 08/19/24 08/19/24 08/19/24 Range/Units 03:17 03:18 03:25 WBC 10.8 (4.8-10.8) X10*3/uL RBC 5.08 (4.20-5.50) X10*6/uL Hgb 15.2 (12.0-16.0) g/dl Hct 43.3 (37.0-47.0) % MCV 85.2 (80.0-98.0) fL MCH 29.9 (27.0-33.0) pg MCHC 35.1 H (31.0-35.0) g/dl RDW 13.5 (11.0-16.0) % Plt Count 353 D (160-400) X10*3/uL MPV 10.6 (9.4-12.3) fL Immature Gran % (Auto) 0.4 (0.0-0.4) % Neut % (Auto) 75.4 H (45-73) % Lymph % (Auto) 15.1 L (20-40) % [place] % (Auto) 6.9 (2-11) % Eos % (Auto) 1.7 (0-4) % Baso % (Auto) 0.5 (0-2) % Lymph # (Auto) 1.6 (1.2-4.9) X10*3/uL [place] # (Auto) 0.7 (0.1-1.2) X10*3/uL Eos # (Auto) 0.2 (0.0-0.4) X10*3/uL Baso # (Auto) 0.1 (0.0-0.2) X10*3/uL Abs Immat Gran (auto) 0.04 H (0.00-0.03) X10*3/uL Absolute Neuts (auto) 8.1 (2.0-8.3) x10*3/uL Absolute Nucleated RBC 0.000 (0.0-0.012) X10*3/uL Nucleated RBC % (auto) 0.0 (0.0-0.2) /100WBC Sodium 137 (135-145) mmol/L Potassium 4.9 (3.3-5.1) mmol/L Chloride 114 H (96-108) mmol/L Carbon Dioxide 13 L (22-29) mmol/L Anion Gap 15 (12-20) BUN 13 (9-16) mg/dL Creatinine 0.81 (0.5-1.4) mg/dL Estim Creat Clear Calc 91.8 Estimated GFR > 60 Random Glucose 103 (60-115) mg/dL Calcium 9.2 (8.4-10.2) mg/dL Total Bilirubin 0.4 (0.0-1.0) mg/dL Direct Bilirubin 0.1 (0.0-0.5) mg/dL AST 90 H (5-31) U/L ALT 198 H (0-31) U/L Alkaline Phosphatase 94 (39-117) U/L Total Protein 8.3 H (6.5-8.0) g/dL Albumin 4.3 (3.5-5.0) g/dL Lipase 25 (8-78) U/L Beta HCG, Quant < 2 mIU/mL Hold Green Top See Note Urine Color Yellow Urine Appearance Cloudy Urine pH 6.0 (5.0-9.0) Ur Specific [place] 1.015 (1.005-1.025) Urine Protein Negative (Neg-Trace) mg/dL Urine Glucose (UA) Negative (Negative) mg/dL Urine Ketones Negative (Negative) mg/dL Urine Blood Small (1+) H (Negative) Urine Nitrite Negative (Negative) Ur Leukocyte Esterase Trace H (Negative) Urine RBC 0-2 (0-2) /HPF Urine WBC 0-5 (0-5) /HPF Ur Squamous Epith Cells >20 (0-2) /HPF Urine Bacteria 3+ (None Seen) Hyaline Casts 0-2 (0-2) /LPF Independent Interpretation I performed an independent interpretation of an: CT Scan Radiology Impression Discussion of test interpretation with radiology: I have reviewed the radiologist's reading. Radiologist Impression: No consolidation or effusion. There is right-sided obstructive uropathy with mild hydroureteronephrosis and an obstructing 3 mm calculus at the right ureterovesicular junction. The rest of the solid organs are unremarkable. No bowel obstruction, pneumoperitoneum, or pneumatosis. Postoperative changes are seen in the right lower quadrant related to appendectomy. The uterus is leiomyomatous. An IUD is present. The bones are intact. IMPRESSION: There is right-sided obstructive uropathy with mild hydroureteronephrosis and an obstructing 3 mm calculus at the right ureterovesicular junction. Critical Care Time Critical Care Time Critical Care Time: Yes Total Critical Care Time: 45 Attestation: I have personally provided critical care time. Time includes review of lab data, radiology results, discussion with consultants, and monitoring for potential decompensation. Intervention performed as documented. Discharge Plan Discharge Clinical Impression: Kidney stone Patient Disposition: Still a Patient Instructions: Kidney Stones (ED) Additional Instructions: Please follow-up with your primary care physician tomorrow. If you have any worsening or new symptoms, please return to the emergency room or call 911 Prescriptions: New ketorolac 10 mg tablet 10 mg PO Q8H PRN (Reason: pain) Qty: 10 0RF Rx Instructions: maximum total duration of 5 days from all oral, intranasal, or parenteral formulations ondansetron HCl 4 mg tablet 4 mg PO Q6H PRN (Reason: nausea and vomiting) Qty: 14 0RF tamsulosin 0.4 mg capsule 0.4 mg PO DAILY Qty: 14 0RF No Action (DME) catheter 16 Fr misc See Rx Instructions .Route Qty: 30 5RF Rx Instructions: As directed once daily for urethral dilation budesonide-formoterol [Symbicort] 160-4.5 mcg/actuation HFA aerosol inhaler 2 puff inhalation BID clonazepam 0.5 mg tablet 0.5 mg PO DAILY PRN sertraline 100 mg tablet 100 mg PO DAILY buspirone 5 mg tablet 5 mg PO BID gabapentin 300 mg capsule 300 mg PO BID albuterol sulfate 90 mcg/actuation HFA aerosol inhaler inhalation Referrals: Va Crenshaw MD [Physician] - 08/23/24 Stand Alone Forms: Work/School Release Print Language: Swazi
--- NOTE | 2024-08-19 03:22 | MHC.EDTECH ---
This pct just assumed care of Patient ,blood drawn ,urine sample collected all sent to lab .
[2024-08-19 03:25] LABS: Appearance Urine Cloudy; Color Urine Yellow; Glucose Urine UA Negative (Negative); Leukocyte Esterase Urine Trace (Negative); Nitrite Urine Negative (Negative); Specific Gravity - Urine 1.015 (1.005-1.025); UMIC TRIGGER UACC YES; Urine Blood Small (1+) (Negative); Urine Ketones Negative (Negative); Urine Protein Negative (Neg-Trace)
[2024-08-19 03:32] LABS: Basophils Absolute Auto 0.1 X10*3/uL (0.0-0.2); Basophils Percent Auto 0.5 % (0-2); Eosinophils Absolute Auto 0.2 X10*3/uL (0.0-0.4); Eosinophils Percent Auto 1.7 % (0-4); Hematocrit 43.3 % (37.0-47.0); Hemoglobin 15.2 g/dl (12.0-16.0); Imm Gran Abs Auto 0.04 X10*3/uL (0.00-0.03); Imm Gran Pct Auto 0.4 % (0.0-0.4); Lymphocytes Absolute Auto 1.6 X10*3/uL (1.2-4.9); Lymphocytes Percent Auto 15.1 % (20-40); Mean Corpuscular HGB Conc 35.1 g/dl (31.0-35.0); Mean Corpuscular Hemoglobin 29.9 pg (27.0-33.0); Mean Corpuscular Volume 85.2 fL (80.0-98.0); Mean Platelet Volume 10.6 fL (9.4-12.3); Monocytes Absolute Auto 0.7 X10*3/uL (0.1-1.2); Monocytes Percent Auto 6.9 % (2-11); Neutrophils Absolute Auto 8.1 x10*3/uL (2.0-8.3); Neutrophils Percent Auto 75.4 % (45-73); Platelet Count 353 X10*3/uL (160-400); Red Blood Count 5.08 X10*6/uL (4.20-5.50); Red Cell Distribution Width 13.5 % (11.0-16.0); White Blood Count 10.8 X10*3/uL (4.8-10.8)
[2024-08-19] MEDS: 0.9 % Sodium Chloride 1,000 ML 999 ML IVCONT (03:32)
[2024-08-19] MEDS: ondansetron HCL 4 MG/2 ML VIAL IVPUSH (03:32)
[2024-08-19 03:33] LABS: Bacteria Urine 3+ (None Seen); Hyaline Casts Urine 0-2 /LPF (0-2); RBC Urine 0-2 /HPF (0-2); Squamous Epithelial Cell Urine >20 /HPF (0-2); WBC Urine 0-5 /HPF (0-5)
[2024-08-19] MEDS: Ketorolac Tromethamine 30 MG/ML VIAL IVPUSH (03:33)
[2024-08-19 03:35] LABS: MANUAL DIFF FLAG NO
[2024-08-19 03:45] LABS: Alanine Aminotransferase 198 U/L (0-31); Albumin Level 4.3 g/dL (3.5-5.0); Alkaline Phosphatase 94 U/L (39-117); Anion Gap 15 (12-20); Aspartate Amino Transferase 90 U/L (5-31); Bilirubin Direct 0.1 mg/dL (0.0-0.5); Bilirubin Total 0.4 mg/dL (0.0-1.0); Blood Urea Nitrogen 13 mg/dL (9-16); Calcium 9.2 mg/dL (8.4-10.2); Carbon Dioxide 13 mmol/L (22-29); Chloride 114 mmol/L (96-108); Creatinine Clr Calc Pharmacy 91.8; Estimated Glomerular Filt Rate > 60; Glucose Random 103 mg/dL (60-115); HCG Quantitative < 2 mIU/mL; Lipase 25 U/L (8-78); Potassium 4.9 mmol/L (3.3-5.1); Sodium 137 mmol/L (135-145); Total Protein 8.3 g/dL (6.5-8.0)
[2024-08-19] MEDS: Morphine Sulfate 4 MG/ML CARTRIDGE IVPUSH (05:26)
[2024-08-19] MEDS: levoFLOXacin 500 MG TABLET PO (05:51)
[2024-08-19] MEDS: Tamsulosin HCL 0.4 MG CAPSULE PO (05:51)
[2024-08-19] MEDS: HYDROmorphone HCl 0.5 MG/0.5 ML SYRINGE IVPUSH (08:09)
--- NOTE | 2024-08-19 09:05 | PC.NURSE ---
Resemed care of patient at 0700 ,she was rocking and restless in the bed d/t 1010 pain. MD at shift change, one time order placed and given with a little effect, heating pad also given to patient. Pt has a complicated history with GI, she normally straight caths every other day to help keep her urethra open, pt has been on a cruise and has not been able to in over a week. She has only been able to have minimal urine outpt while being in ED overnight. Awaiting further dispo plan at this time dt CT results
--- NOTE | 2024-08-19 10:11 | PHA.MEDREC ---
Addendum entered by Zay Campbell 08/19/24 10:14: reviewed Original Note: Pharmacy Consult ? Medication Reconciliation Pharmacy has completed the medication reconciliation. Spoke to patient to confirm med list. Patient states she is no longer taking Budesonide-fgormoterl HFA, Gabapentin 300 mg. Patient states she last took her medications yesterday.
[2024-08-19 10:18] LABS: Venous Blood Gas Refer to POC result
[2024-08-19 10:19] LABS: VBG Base Excess -3.7 mmol/L; VBG HCO3 21 mmol/L (22-26); VBG pCO2 40 mmHg; VBG pH 7.33 (7.32-7.43); VBG pO2 41 mmHg
[2024-08-19] MEDS: 0.9 % Sodium Chloride 1,000 ML 999 ML IV (10:21)
--- NOTE | 2024-08-19 10:22 | P.HPHOSP_ITS ---
History of Present Illness Date of Service: 08/19/24 Chief Complaint: R flank pain, nausea The patient is a 39-year-old female with a past medical history of asthma and urethral stricture with intermittent self catheterization who presents to the emergency room with complaints of right flank and right lower quadrant abdominal pain which began at 20:00, the evening prior to hospitalization. The patient states that initially she thought this was related to constipation and attempted to move her bowels. However her pain continued and subsequently she began feeling nauseous. She states that around 02:00 on the day of hospitalization her pain became so severe and hence she presented to the emergency room. She describes the pain as colicky in nature occurring several times an hour and lasting several minutes. She reports ongoing nausea with a loss of appetite. She denies any fevers or chills. Denies any hematuria. Denies any dysuria. In the emergency room the patient underwent workup which revealed a obstructing 3 mm right-sided calculus at the right UVJ causing hydroureteronephrosis. The patient was treated with 1 L of normal saline, IV Zofran, IV Toradol 30 mg, IV morphine 4 mg, IV Dilaudid 0.5 mg, Flomax and Levaquin. Initially patient had some improvement, however upon attempting to urinate, her pain has returned. Given her persistent nausea and inability to tolerate oral intake along with intractable pain requiring 3 doses of IV analgesics and less than 8 hours, the patient will be admitted for further care. Review of Systems 2 Review of Systems: Negative except HPI/interval history. [facility] Social History Advance Directives: No Advance Directives Information Provided: Yes Do you have a plan to hurt others: No Plan Meds Allergies Allergy/AdvReac Type Severity Reaction Status Date / Time Cephalosporins Allergy Severe Angioedema Verified 08/19/24 03:14 cefaclor [From CECLOR] Allergy Unknown ANGIOEDEMA Verified 08/19/24 02:50 Penicillins [PENICILLINS] Allergy Unknown HIVES Verified 08/19/24 02:50 Active Medications: Current Medications Acetaminophen (Acetaminophen 325 Mg Tablet) 650 mg PO Q6H PRN PRN Reason: Pain, Mild 1-3,fever,headache Calcium Carbonate (Calcium Carbonate 750 Mg Tab.Chew) 750 mg PO Q4H PRN PRN Reason: Heartburn Enoxaparin Sodium (Enoxaparin Sodium 40 Mg/0.4 Ml Syringe) 40 mg SUBCUT Q24H [facility]AND[facility] Hydromorphone HCl (Hydromorphone Hcl 1 Mg/Ml Syringe) 0.5 mg IVPUSH Q4H PRN; Protocol PRN Reason: Pain, Severe (Pain Scale 7-10) Sodium Chloride (Ns) 1,000 mls @ 999 mls/hr IV .Q1H1M [facility] Stop: 08/19/24 11:00 Last Admin: 08/19/24 10:21 Dose: 999 mls/hr Lactated Ringer's (Lr) 1,000 mls @ 100 mls/hr IVCONT .Q10H [facility] Magnesium Hydroxide (Milk Of Magnesia 30 Ml Oral.Susp) 30 ml PO DAILY PRN PRN Reason: Constipation Melatonin (Melatonin 3 Mg Tablet) 6 mg PO BEDTIME PRN PRN Reason: Insomnia Sodium Chloride (0.9 % Sodium Chloride Flush 3 Ml Syringe) 3 ml IVFLUSH QSHIFT [facility] Home Medications ?Medication ?Instructions ?Recorded ?Confirmed ?Last Taken ?Type buspirone 5 mg tablet 5 mg PO BID 01/16/23 08/19/24 08/18/24 History clonazepam 0.5 mg tablet 0.5 mg PO DAILY PRN Anxiety 01/16/23 08/19/24 08/18/24 History sertraline 100 mg tablet 100 mg PO DAILY 01/16/23 08/19/24 08/18/24 History albuterol sulfate 90 mcg/actuation 2 puff inhalation Q6H 01/19/24 08/19/24 08/18/24 History aerosol inhaler loratadine 10 mg tablet 10 mg PO DAILY 08/19/24 08/19/24 08/18/24 History mometasone 0.1 % topical ointment 1 appl topical DAILY PRN Rash 08/19/24 08/19/24 08/18/24 History phentermine 15 mg capsule 15 mg PO DAILY 08/19/24 08/19/24 08/18/24 History topiramate 50 mg tablet 50 mg PO DAILY 08/19/24 08/19/24 08/18/24 History zolpidem 5 mg tablet 5 mg PO BEDTIME 08/19/24 08/19/24 08/18/24 History Physical Exam 2 Vital Signs and Narrative: Vital Signs: Last Vital Signs Temp 98 F 08/19/24 09:58 Pulse 86 08/19/24 09:58 Resp 20 08/19/24 09:58 BP 116/72 08/19/24 09:58 Pulse Ox 99 08/19/24 09:58 O2 Del Method Room Air 08/19/24 09:58 BMI result Body Mass Index 37.1 Const: Other: Constitutional - Awake and Alert, intermittently in pain and unable to converse due to this Eyes - PERRLA, EOMI Cardiovascular - S1S2, RRR, No edema Respiratory - Normal lung expansion, Normal respiratory effort, No respiratory distress, CTA bilaterally Gastrointestinal - mild R sided tenderness without rebound/guarding - R CVA TTP Extremities - no calf tenderness bilaterally, no swelling Musculoskeletal - Normal inspection, normal ROM Skin - Warm/Dry Neurological - Alert & oriented x3, No focal deficit Psychological - Appropriate affect Results Labs 08/19/24 03:25 08/19/24 03:18 Labs: Laboratory Results - last 24 hr 08/19/24 08/19/24 08/19/24 03:17 03:18 03:25 MCV 85.2 MCH 29.9 MCHC 35.1 H RDW 13.5 Plt Count 353 D MPV 10.6 Immature Gran % (Auto) 0.4 Neut % (Auto) 75.4 H Lymph % (Auto) 15.1 L [place] % (Auto) 6.9 Eos % (Auto) 1.7 Baso % (Auto) 0.5 Lymph # (Auto) 1.6 [place] # (Auto) 0.7 Eos # (Auto) 0.2 Baso # (Auto) 0.1 Abs Immat Gran (auto) 0.04 H Absolute Neuts (auto) 8.1 Absolute Nucleated RBC 0.000 Nucleated RBC % (auto) 0.0 VBG pH VBG pCO2 VBG pO2 VBG HCO3 VBG O2 Saturation VBG Base Excess Anion Gap 15 Estim Creat Clear Calc 91.8 Estimated GFR > 60 Random Glucose 103 Calcium 9.2 Total Bilirubin 0.4 Direct Bilirubin 0.1 AST 90 H ALT 198 H Alkaline Phosphatase 94 Total Protein 8.3 H Albumin 4.3 Lipase 25 Beta HCG, Quant < 2 Hold Green Top See Note Urine Color Yellow Urine Appearance Cloudy Urine pH 6.0 Ur Specific [place] 1.015 Urine Protein Negative Urine Glucose (UA) Negative Urine Ketones Negative Urine Blood Small (1+) H Urine Nitrite Negative Ur Leukocyte Esterase Trace H Urine RBC 0-2 Urine WBC 0-5 Ur Squamous Epith Cells >20 Urine Bacteria 3+ Hyaline Casts 0-2 08/19/24 10:15 MCV MCH MCHC RDW Plt Count MPV Immature Gran % (Auto) Neut % (Auto) Lymph % (Auto) [place] % (Auto) Eos % (Auto) Baso % (Auto) Lymph # (Auto) [place] # (Auto) Eos # (Auto) Baso # (Auto) Abs Immat Gran (auto) Absolute Neuts (auto) Absolute Nucleated RBC Nucleated RBC % (auto) VBG pH 7.33 VBG pCO2 40 VBG pO2 41 VBG HCO3 21 L VBG O2 Saturation 70.0 VBG Base Excess -3.7 Anion Gap Estim Creat Clear Calc Estimated GFR Random Glucose Calcium Total Bilirubin Direct Bilirubin AST ALT Alkaline Phosphatase Total Protein Albumin Lipase Beta HCG, Quant Hold Green Top Urine Color Urine Appearance Urine pH Ur Specific [place] Urine Protein Urine Glucose (UA) Urine Ketones Urine Blood Urine Nitrite Ur Leukocyte Esterase Urine RBC Urine WBC Ur Squamous Epith Cells Urine Bacteria Hyaline Casts Assessment and Plan (1) Kidney stone: Status: Acute Plan 39 yo F with a history of asthma and uretral stricture requiring CIC who presents with sudden onset right flank pain which began the evening prior to hospitalization. she was found to have obstructive uropathy secondary to a 3 mm right UVJ stone. Despite multiple L of fluids as well as multiple rounds of IV analgesics and Flomax plus antibiotics, the patient continues to be symptomatic. Hence she will be admitted to the hospital for further care. 1. Obstructive uropathy secondary to 3 mm right UVJ stone Hydroureteronephrosis seen on imaging Ongoing pain requiring multiple doses of IV analgesics (>3 in 8 hours;, will continue IV Dilaudid p.r.n. q4h Urology consult IV fluids 2. Ureteral stricture Does self intermittent catheterization monitor urine output 3.Asthma no evidence of exacerbation Continue baseline inhalers 4. Mood Continue baseline meds Full Code DVT pptx, Lovenox Pt with UVJ stone causing obstructive uropathy with intractable pain and inability to tolerate oral intake, with possible urological intervention needed, therefore expected to require at a minimum 2 midnights in the hospital for management. Hence, will be admitted as inpt. Quality Stroke Does the patient have a stroke diagnosis?: No VTE Prior VTE?: No VTE Risk Level:: Medical - moderate - high VTE Device Contraindication: N/A - Device Ordered VTE Drug Contraindication: N/A - Med Ordered
[2024-08-19] MEDS: Enoxaparin Sodium 40 MG/0.4 ML SYRINGE SUBCUT (11:46)
[2024-08-19] MEDS: HYDROmorphone HCl 1 MG/ML SYRINGE 0.5 MG IVPUSH ×3 (11:47→19:54)
[2024-08-19] MEDS: clonazePAM 0.5 MG TABLET PO (11:47)
[2024-08-19] MEDS: Lactated Ringers 1,000 ML 100 ML IVCONT ×2 (11:49→20:59)
--- NOTE | 2024-08-19 16:27 | PM.UROCN ---
History of Present Illness Consult details Consult date: 08/19/24 Narrative: Pt evaluated, know to Urology, on CIC. 1st kidney stone CTAP-- 3 mm UVJ stone, right Plan IV hydration, strain urine Review of Systems Review of Systems: Yes all other systems are reviewed and are negative Constitutional: Constitutional: Reports no additional constitutional complaints Eyes: Eyes: Reports no additional eye complaints ENT: Reports system reviewed and no additional complaints, except as documented Cardiovascular: Cardiovascular: Reports no additional cardiovascular complaints Respiratory: Respiratory: Reports no additional respiratory complaints Gastrointestinal: Gastrointestinal: Reports no additional gastrointestinal complaints Genitourinary: Genitourinary: Reports as per HPI Musculoskeletal: Musculoskeletal: Reports no additional musculoskeletal complaints Integumentary/Breasts: Skin/Breast: Reports system reviewed and no additional complaints, except as docu Neurologic: Reports system reviewed and no additional complaints, except as documented Psychiatric: Psychiatric: Reports no additional psychiatric complaints Endocrine: Endocrine: Reports no additional endocrine complaints Hematologic/Lymphatic: Hematologic/Lymphatic: Reports no additional hematologic/lymphatic complaints Allergic/Immunologic: Allergic/Immunologic: Reports no additional allergic/immunologic complaints [facility] Social History Social History Household Members: Significant Other Housing: Apartment Do you presently have visiting nurse or other home services: No Patient Tobacco Use Status: Never used Tobacco service: No Meds Allergies Allergy/AdvReac Type Severity Reaction Status Date / Time Cephalosporins Allergy Severe Angioedema Verified 08/19/24 03:14 cefaclor [From CECLOR] Allergy Unknown ANGIOEDEMA Verified 08/19/24 02:50 Penicillins [PENICILLINS] Allergy Unknown HIVES Verified 08/19/24 02:50 Active Medications: Current Medications Acetaminophen (Acetaminophen 325 Mg Tablet) 650 mg PO Q6H PRN PRN Reason: Pain, Mild 1-3,fever,headache Buspirone HCl (Buspirone Hcl 5 Mg Tablet) 5 mg PO BID BANDAR Calcium Carbonate (Calcium Carbonate 750 Mg Tab.Chew) 750 mg PO Q4H PRN PRN Reason: Heartburn Clonazepam (Clonazepam 0.5 Mg Tablet) 0.5 mg PO DAILY PRN PRN Reason: Anxiety Last Admin: 08/19/24 11:47 Dose: 0.5 mg Enoxaparin Sodium (Enoxaparin Sodium 40 Mg/0.4 Ml Syringe) 40 mg SUBCUT Q24H BANDAR Last Admin: 08/19/24 11:46 Dose: 40 mg Hydromorphone HCl (Hydromorphone Hcl 1 Mg/Ml Syringe) 0.5 mg IVPUSH Q4H PRN; Protocol PRN Reason: Pain, Severe (Pain Scale 7-10) Last Admin: 08/19/24 15:22 Dose: 0.5 mg Lactated Ringer's (Lr) 1,000 mls @ 100 mls/hr IVCONT .Q10H [facility] Last Admin: 08/19/24 11:49 Dose: 100 mls/hr Lidocaine HCl (Lidocaine Hcl 2 % Jelly 5 Ml Tube) 1 appl TOPICAL TID PRN; Protocol PRN Reason: Pain, Mild (Pain Scale 1-3) Loratadine (Loratadine 10 Mg Tablet) 10 mg PO DAILY [facility] Magnesium Hydroxide (Milk Of Magnesia 30 Ml Oral.Susp) 30 ml PO DAILY PRN PRN Reason: Constipation Melatonin (Melatonin 3 Mg Tablet) 6 mg PO BEDTIME PRN PRN Reason: Insomnia Sertraline HCl (Sertraline Hcl 100 Mg Tablet) 100 mg PO DAILY [facility] Sodium Chloride (0.9 % Sodium Chloride Flush 3 Ml Syringe) 3 ml IVFLUSH QSHIFT [facility] Last Admin: 08/19/24 13:39 Dose: Not Given Topiramate (Topiramate 25 Mg Tablet) 50 mg PO DAILY [facility] Zolpidem Tartrate (Zolpidem Tartrate 5 Mg Tablet) 5 mg PO BEDTIME [facility] Home Medications ?Medication ?Instructions ?Recorded ?Confirmed ?Last Taken ?Type buspirone 5 mg tablet 5 mg PO BID 01/16/23 08/19/24 08/18/24 History clonazepam 0.5 mg tablet 0.5 mg PO DAILY PRN Anxiety 01/16/23 08/19/24 08/18/24 History sertraline 100 mg tablet 100 mg PO DAILY 01/16/23 08/19/24 08/18/24 History albuterol sulfate 90 mcg/actuation 2 puff inhalation Q6H 01/19/24 08/19/24 08/18/24 History aerosol inhaler loratadine 10 mg tablet 10 mg PO DAILY 08/19/24 08/19/24 08/18/24 History mometasone 0.1 % topical ointment 1 appl topical DAILY PRN Rash 08/19/24 08/19/24 08/18/24 History phentermine 15 mg capsule 15 mg PO DAILY 08/19/24 08/19/24 08/18/24 History topiramate 50 mg tablet 50 mg PO DAILY 08/19/24 08/19/24 08/18/24 History zolpidem 5 mg tablet 5 mg PO BEDTIME 08/19/24 08/19/24 08/18/24 History Physical Exam Vital Signs: Vital Signs: Last Vital Signs Temp 98.2 F 08/19/24 15:15 Pulse 83 08/19/24 15:15 Resp 18 08/19/24 15:15 BP 120/78 08/19/24 15:15 Pulse Ox 98 08/19/24 15:15 O2 Del Method Room Air 08/19/24 15:15 BMI result Body Mass Index 39.9 Results Labs 08/19/24 03:25 08/20/24 05:06 Labs: Abnormal lab results 08/19/24 08/19/24 08/19/24 Range/Units 03:17 03:18 03:25 MCHC 35.1 H (31.0-35.0) g/dl Neut % (Auto) 75.4 H (45-73) % Lymph % (Auto) 15.1 L (20-40) % Abs Immat Gran (auto) 0.04 H (0.00-0.03) X10*3/uL VBG HCO3 (22-26) mmol/L Chloride 114 H (96-108) mmol/L Carbon Dioxide 13 L (22-29) mmol/L AST 90 H (5-31) U/L ALT 198 H (0-31) U/L Total Protein 8.3 H (6.5-8.0) g/dL Urine Blood Small (1+) H (Negative) Ur Leukocyte Esterase Trace H (Negative) 08/19/24 Range/Units 10:15 MCHC (31.0-35.0) g/dl Neut % (Auto) (45-73) % Lymph % (Auto) (20-40) % Abs Immat Gran (auto) (0.00-0.03) X10*3/uL VBG HCO3 21 L (22-26) mmol/L Chloride (96-108) mmol/L Carbon Dioxide (22-29) mmol/L AST (5-31) U/L ALT (0-31) U/L Total Protein (6.5-8.0) g/dL Urine Blood (Negative) Ur Leukocyte Esterase (Negative) Short CBC 08/19/24 Range/Units 03:25 WBC 10.8 (4.8-10.8) X10*3/uL Hgb 15.2 (12.0-16.0) g/dl Hct 43.3 (37.0-47.0) % Plt Count 353 D (160-400) X10*3/uL BMP 08/19/24 03:18 Sodium 137 Potassium 4.9 Chloride 114 H Carbon Dioxide 13 L BUN 13 Creatinine 0.81 Calcium 9.2 Liver Function 08/19/24 Range/Units 03:18 Total Bilirubin 0.4 (0.0-1.0) mg/dL Direct Bilirubin 0.1 (0.0-0.5) mg/dL AST 90 H (5-31) U/L ALT 198 H (0-31) U/L Alkaline Phosphatase 94 (39-117) U/L Albumin 4.3 (3.5-5.0) g/dL Urine 08/19/24 Range/Units 03:17 Urine Color Yellow Urine Appearance Cloudy Urine pH 6.0 (5.0-9.0) Ur Specific [place] 1.015 (1.005-1.025) Urine Protein Negative (Neg-Trace) mg/dL Urine Glucose (UA) Negative (Negative) mg/dL Imaging Abdomen CT scan report/results: report reviewed and image reviewed CT scan - pelvis: report reviewed and image reviewed Additional studies: Date of Service: 08/19/24 CLINICAL HISTORY: R flank pain CT abdomen and pelvis without contrast Comparison: None Findings: No consolidation or effusion. There is right-sided obstructive uropathy with mild hydroureteronephrosis and an obstructing 3 mm calculus at the right ureterovesicular junction. The rest of the solid organs are unremarkable. No bowel obstruction, pneumoperitoneum, or pneumatosis. Postoperative changes are seen in the right lower quadrant related to appendectomy. The uterus is leiomyomatous. An IUD is present. The bones are intact. IMPRESSION: There is right-sided obstructive uropathy with mild hydroureteronephrosis and an obstructing 3 mm calculus at the right ureterovesicular junction. Assessment and Plan (1) Ureteral stone: Status: Acute (2) Incomplete bladder emptying: Status: Acute (3) Unspecified urethral stricture, female: Status: Acute Plan IV fluid hydration strain urine If she does not pass stone NPO past MN for ureteral stent 08/20/24, pt agreeable to plan Ok for pt to do ISC with lidocaine jelly prn Procedures Date of Service Date of Service: 08/20/24
[2024-08-19] MEDS: Lidocaine HCl 2 % Jelly 5 ML TUBE 1 APPL TOPICAL (16:30)
[2024-08-19] MEDS: busPIRone HCl 5 MG TABLET PO (20:59)
[2024-08-19] MEDS: Zolpidem Tartrate 5 MG TABLET PO (20:59)
[2024-08-20] VITALS (10 sets, daily range): BP systolic 87–122; BP diastolic 41–75; PULSE 71–88; RESP 16–19; TEMP 36.2–37; O2SAT 97–100
[2024-08-20] MEDS: HYDROmorphone HCl 1 MG/ML SYRINGE 0.5 MG IVPUSH ×5 (01:20→20:37)
[2024-08-20] MEDS: Lactated Ringers 1,000 ML 100 ML IVCONT ×2 (05:39→14:12)
[2024-08-20] MEDS: ondansetron HCL 4 MG/2 ML VIAL IVPUSH (05:59)
--- NOTE | 2024-08-20 06:03 | PC.NURSE ---
Pt seen on bed alert and oriented, endorsed right flank pain radiating towards the abd, prn Dilaudid 0.5 mg IV given with good effect, ambu to the BR and voiding, urine strained, no stone noted, NPO post midnight instructed, for possible cystoscopy and stent placement as per Uro plan, pt complied, pt c/o nausea early am, Dr. Courtney was notified, Zofran IV given with good effect.
[2024-08-20 06:13] LABS: Anion Gap 10 (12-20); Blood Urea Nitrogen 6 mg/dL (9-16); Calcium 8.8 mg/dL (8.4-10.2); Carbon Dioxide 21 mmol/L (22-29); Chloride 113 mmol/L (96-108); Creatinine Clr Calc Pharmacy 115.7; Estimated Glomerular Filt Rate > 60; Glucose Random 92 mg/dL (60-115); Potassium 4.3 mmol/L (3.3-5.1); Sodium 140 mmol/L (135-145)
[2024-08-20] MEDS: Topiramate 25 MG TABLET 50 MG PO (08:00)
[2024-08-20] MEDS: Sertraline HCL 100 MG TABLET PO (08:00)
[2024-08-20] MEDS: Loratadine 10 MG TABLET PO (08:00)
[2024-08-20] MEDS: busPIRone HCl 5 MG TABLET PO ×2 (08:00→21:37)
--- NOTE | 2024-08-20 08:57 | HO.PM.IMPN ---
Subjective Subjective Date of Service: 08/20/24 Interval History: f/u on kidney stone, persistent right flank pain, no fever Physical Exam Vital Signs: Vital Signs: Last Vital Signs Temp 97.3 F 08/20/24 07:28 Pulse 73 08/20/24 07:28 Resp 16 08/20/24 07:28 BP 100/57 L 08/20/24 07:28 Pulse Ox 97 08/20/24 07:28 O2 Del Method Room Air 08/20/24 07:28 BMI result Body Mass Index 39.9 General: AO X 3, no acute distress Resp: CTA bilateral CVS: S1,S2,RRR GI: +BS, NT, no distention Skin: No rash Neuro: motor grossly intact Psych: appropriate affect Objective Data Active Medications Acetaminophen (Acetaminophen 325 Mg Tablet) 650 mg PO Q6H PRN PRN Reason: Pain, Mild 1-3,fever,headache Buspirone HCl (Buspirone Hcl 5 Mg Tablet) 5 mg PO BID [facility] Last Admin: 08/20/24 08:00 Dose: 5 mg Documented By: THOMAS Calcium Carbonate (Calcium Carbonate 750 Mg Tab.Chew) 750 mg PO Q4H PRN PRN Reason: Heartburn Clonazepam (Clonazepam 0.5 Mg Tablet) 0.5 mg PO DAILY PRN PRN Reason: Anxiety Last Admin: 08/19/24 11:47 Dose: 0.5 mg Documented By: BRYCE Enoxaparin Sodium (Enoxaparin Sodium 40 Mg/0.4 Ml Syringe) 40 mg SUBCUT Q24H [facility] Last Admin: 08/19/24 11:46 Dose: 40 mg Documented By: BRYCE Hydromorphone HCl (Hydromorphone Hcl 1 Mg/Ml Syringe) 0.5 mg IVPUSH Q4H PRN; Protocol PRN Reason: Pain, Severe (Pain Scale 7-10) Last Admin: 08/20/24 05:39 Dose: 0.5 mg Documented By: ENMA Lactated Ringer's (Lr) 1,000 mls @ 100 mls/hr IVCONT .Q10H [facility] Last Admin: 08/20/24 05:39 Dose: 100 mls/hr Documented By: ENMA Lidocaine HCl (Lidocaine Hcl 2 % Jelly 5 Ml Tube) 1 appl TOPICAL TID PRN; Protocol PRN Reason: Pain, Mild (Pain Scale 1-3) Last Admin: 08/19/24 16:30 Dose: 1 appl Documented By: CARMELINA Loratadine (Loratadine 10 Mg Tablet) 10 mg PO DAILY [facility] Last Admin: 08/20/24 08:00 Dose: 10 mg Documented By: THOMAS Magnesium Hydroxide (Milk Of Magnesia 30 Ml Oral.Susp) 30 ml PO DAILY PRN PRN Reason: Constipation Melatonin (Melatonin 3 Mg Tablet) 6 mg PO BEDTIME PRN PRN Reason: Insomnia Ondansetron HCl (Ondansetron Hcl 4 Mg/2 Ml Vial) 4 mg IVPUSH Q8H PRN PRN Reason: Nausea and Vomiting Last Admin: 08/20/24 05:59 Dose: 4 mg Documented By: ENMA Sertraline HCl (Sertraline Hcl 100 Mg Tablet) 100 mg PO DAILY [facility] Last Admin: 08/20/24 08:00 Dose: 100 mg Documented By: THOMAS Sodium Chloride (0.9 % Sodium Chloride Flush 3 Ml Syringe) 3 ml IVFLUSH QSHIFT [facility] Last Admin: 08/20/24 08:02 Dose: Not Given Documented By: THOMAS Non-Admin Reason: IV Running Topiramate (Topiramate 25 Mg Tablet) 50 mg PO DAILY [facility] Last Admin: 08/20/24 08:00 Dose: 50 mg Documented By: THOMAS Zolpidem Tartrate (Zolpidem Tartrate 5 Mg Tablet) 5 mg PO BEDTIME [facility] Last Admin: 08/19/24 20:59 Dose: 5 mg Documented By: ENMA Labs 08/19/24 03:25 08/20/24 05:06 Labs: Laboratory Results - last 24 hr 08/19/24 08/20/24 10:15 05:06 VBG pH 7.33 VBG pCO2 40 VBG pO2 41 VBG HCO3 21 L VBG O2 Saturation 70.0 VBG Base Excess -3.7 Anion Gap 10 L Estim Creat Clear Calc 115.7 Estimated GFR > 60 Random Glucose 92 Calcium 8.8 Assessment and Plan (1) Kidney stone: Status: Acute (2) Ureteral stone: Status: Acute (3) Incomplete bladder emptying: Status: Acute Plan F with a history of asthma and uretral stricture requiring CIC who presents with sudden onset right flank pain which began the evening prior to hospitalization. she was found to have obstructive uropathy secondary to a 3 mm right UVJ stone. Despite multiple L of fluids as well as multiple rounds of IV analgesics and Flomax plus antibiotics, the patient continues to be symptomatic. 1. Obstructive uropathy secondary to 3 mm right UVJ stone with hydronephrosis, persistent Righ flank pain IVF Cystoscopy with intervention today Dilaudid for pain 2. Ureteral stricture Does self intermittent catheterization monitor urine output 3.Asthma no evidence of exacerbation Continue baseline inhalers 4. Mood Continue baseline meds Full Code DVT pptx, Lovenox Pt with UVJ stone causing obstructive uropathy with intractable pain and inability to tolerate oral intake, with possible urological intervention needed, therefore expected to require at a minimum 2 midnights in the hospital for management. Hence, will be admitted as inpt. Quality Stroke Does the patient have a stroke diagnosis?: No VTE Prior VTE?: No VTE Risk Level:: Medical - moderate - high VTE Device Contraindication: N/A - Device Ordered VTE Drug Contraindication: N/A - Med Ordered
--- NOTE | 2024-08-20 11:33 | MHC.CM.PN ---
PT LIVES WITH A S/O IS INDEPEDENT HAS NO SERVICES HAS A RIDE HOME DC PLAN HOME NO SERVIES
--- NOTE | 2024-08-20 15:43 | P.CONAN_ITS ---
HPI - Anesthesia Eval Consult details Narrative: 39 yo F presenting for cystoscopy, ureteroscopy, reto, laser. [facility] Active Problems Active Problems: All Active Problems Ureteral stone (Acute) Kidney stone (Acute) Incomplete bladder emptying (Acute) Unspecified urethral stricture, female (Acute) History of urethral stricture (Acute) Family History Family history of problems with anesthesia: No Surgical History History of Problems with Anesthesia: Yes (wakes up aggressive and confused after anesthesia) Social History Social History Household Members: Significant Other Housing: Apartment Do you presently have visiting nurse or other home services: No Patient Tobacco Use Status: Never used Tobacco service: No Meds Allergies Allergy/AdvReac Type Severity Reaction Status Date / Time Cephalosporins Allergy Severe Angioedema Verified 08/19/24 03:14 cefaclor [From CECLOR] Allergy Unknown ANGIOEDEMA Verified 08/19/24 02:50 Penicillins [PENICILLINS] Allergy Unknown HIVES Verified 08/19/24 02:50 Active Medications: Current Medications Acetaminophen (Acetaminophen 325 Mg Tablet) 650 mg PO Q6H PRN PRN Reason: Pain, Mild 1-3,fever,headache Buspirone HCl (Buspirone Hcl 5 Mg Tablet) 5 mg PO BID [facility] Last Admin: 08/20/24 08:00 Dose: 5 mg Calcium Carbonate (Calcium Carbonate 750 Mg Tab.Chew) 750 mg PO Q4H PRN PRN Reason: Heartburn Clonazepam (Clonazepam 0.5 Mg Tablet) 0.5 mg PO DAILY PRN PRN Reason: Anxiety Last Admin: 08/19/24 11:47 Dose: 0.5 mg Enoxaparin Sodium (Enoxaparin Sodium 40 Mg/0.4 Ml Syringe) 40 mg SUBCUT Q24H [facility] Last Admin: 08/20/24 11:01 Dose: Not Given Hydromorphone HCl (Hydromorphone Hcl 1 Mg/Ml Syringe) 0.5 mg IVPUSH Q4H PRN; Protocol PRN Reason: Pain, Severe (Pain Scale 7-10) Last Admin: 08/20/24 14:11 Dose: 0.5 mg Lactated Ringer's (Lr) 1,000 mls @ 100 mls/hr IVCONT .Q10H [facility] Last Admin: 08/20/24 14:12 Dose: 100 mls/hr Lidocaine HCl (Lidocaine Hcl 2 % Jelly 5 Ml Tube) 1 appl TOPICAL TID PRN; Protocol PRN Reason: Pain, Mild (Pain Scale 1-3) Last Admin: 08/19/24 16:30 Dose: 1 appl Loratadine (Loratadine 10 Mg Tablet) 10 mg PO DAILY [facility] Last Admin: 08/20/24 08:00 Dose: 10 mg Magnesium Hydroxide (Milk Of Magnesia 30 Ml Oral.Susp) 30 ml PO DAILY PRN PRN Reason: Constipation Melatonin (Melatonin 3 Mg Tablet) 6 mg PO BEDTIME PRN PRN Reason: Insomnia Ondansetron HCl (Ondansetron Hcl 4 Mg/2 Ml Vial) 4 mg IVPUSH Q8H PRN PRN Reason: Nausea and Vomiting Last Admin: 08/20/24 05:59 Dose: 4 mg Sertraline HCl (Sertraline Hcl 100 Mg Tablet) 100 mg PO DAILY [facility] Last Admin: 08/20/24 08:00 Dose: 100 mg Sodium Chloride (0.9 % Sodium Chloride Flush 3 Ml Syringe) [facility] Last Admin: 08/20/24 14:13 Dose: Not Given Topiramate (Topiramate 25 Mg Tablet) 50 mg PO DAILY [facility] Last Admin: 08/20/24 08:00 Dose: 50 mg Zolpidem Tartrate (Zolpidem Tartrate 5 Mg Tablet) 5 mg PO BEDTIME [facility] Last Admin: 08/19/24 20:59 Dose: 5 mg Home Medications ?Medication ?Instructions ?Recorded ?Confirmed ?Last Taken ?Type buspirone 5 mg tablet 5 mg PO BID 01/16/23 08/19/24 08/18/24 History clonazepam 0.5 mg tablet 0.5 mg PO DAILY PRN Anxiety 01/16/23 08/19/24 08/18/24 History sertraline 100 mg tablet 100 mg PO DAILY 01/16/23 08/19/24 08/18/24 History albuterol sulfate 90 mcg/actuation 2 puff inhalation Q6H 01/19/24 08/19/24 08/18/24 History aerosol inhaler loratadine 10 mg tablet 10 mg PO DAILY 08/19/24 08/19/24 08/18/24 History mometasone 0.1 % topical ointment 1 appl topical DAILY PRN Rash 08/19/24 08/19/24 08/18/24 History phentermine 15 mg capsule 15 mg PO DAILY 08/19/24 08/19/24 08/18/24 History topiramate 50 mg tablet 50 mg PO DAILY 08/19/24 08/19/24 08/18/24 History zolpidem 5 mg tablet 5 mg PO BEDTIME 08/19/24 08/19/24 08/18/24 History Exam Exam Date and Time: 08/20/24 1620 Height,Weight and Vital Signs: Height 5 ft Weight 92.7 kg Last Vital Signs Temp 97.5 F 08/20/24 14:58 Pulse 77 08/20/24 14:58 Resp 18 08/20/24 14:58 BP 117/64 08/20/24 14:58 Pulse Ox 97 08/20/24 14:58 O2 Del Method Room Air 08/20/24 14:58 Pertinent Lab Results Pertinent Lab Results: Laboratory Tests 08/19/24 08/19/24 08/19/24 03:17 03:18 03:25 WBC 10.8 RBC 5.08 Hgb 15.2 Hct 43.3 MCV 85.2 MCH 29.9 MCHC 35.1 H RDW 13.5 Plt Count 353 D MPV 10.6 Immature Gran % (Auto) 0.4 Neut % (Auto) 75.4 H Lymph % (Auto) 15.1 L [place] % (Auto) 6.9 Eos % (Auto) 1.7 Baso % (Auto) 0.5 Lymph # (Auto) 1.6 [place] # (Auto) 0.7 Eos # (Auto) 0.2 Baso # (Auto) 0.1 Abs Immat Gran (auto) 0.04 H Absolute Neuts (auto) 8.1 Absolute Nucleated RBC 0.000 Nucleated RBC % (auto) 0.0 VBG pH VBG pCO2 VBG pO2 VBG HCO3 VBG O2 Saturation VBG Base Excess Sodium 137 Potassium 4.9 Chloride 114 H Carbon Dioxide 13 L Anion Gap 15 BUN 13 Creatinine 0.81 Estim Creat Clear Calc 91.8 Estimated GFR > 60 Random Glucose 103 Calcium 9.2 Total Bilirubin 0.4 Direct Bilirubin 0.1 AST 90 H ALT 198 H Alkaline Phosphatase 94 Total Protein 8.3 H Albumin 4.3 Lipase 25 Beta HCG, Quant < 2 Hold Green Top See Note Urine Color Yellow Urine Appearance Cloudy Urine pH 6.0 Ur Specific [place] 1.015 Urine Protein Negative Urine Glucose (UA) Negative Urine Ketones Negative Urine Blood Small (1+) H Urine Nitrite Negative Ur Leukocyte Esterase Trace H Urine RBC 0-2 Urine WBC 0-5 Ur Squamous Epith Cells >20 Urine Bacteria 3+ Hyaline Casts 0-2 08/19/24 08/20/24 10:15 05:06 WBC RBC Hgb Hct MCV MCH MCHC RDW Plt Count MPV Immature Gran % (Auto) Neut % (Auto) Lymph % (Auto) [place] % (Auto) Eos % (Auto) Baso % (Auto) Lymph # (Auto) [place] # (Auto) Eos # (Auto) Baso # (Auto) Abs Immat Gran (auto) Absolute Neuts (auto) Absolute Nucleated RBC Nucleated RBC % (auto) VBG pH 7.33 VBG pCO2 40 VBG pO2 41 VBG HCO3 21 L VBG O2 Saturation 70.0 VBG Base Excess -3.7 Sodium 140 Potassium 4.3 Chloride 113 H Carbon Dioxide 21 L Anion Gap 10 L BUN 6 L Creatinine 0.67 Estim Creat Clear Calc 115.7 Estimated GFR > 60 Random Glucose 92 Calcium 8.8 Total Bilirubin Direct Bilirubin AST ALT Alkaline Phosphatase Total Protein Albumin Lipase Beta HCG, Quant Hold Green Top Urine Color Urine Appearance Urine pH Ur Specific [place] Urine Protein Urine Glucose (UA) Urine Ketones Urine Blood Urine Nitrite Ur Leukocyte Esterase Urine RBC Urine WBC Ur Squamous Epith Cells Urine Bacteria Hyaline Casts Assessment and Plan Assessment Anesthesia Assessment: Anesthesia Plan Discussed and Chart Reviewed Final Anesthetic Review Family History of Problems with Anesthesia: No History of Problems with Anesthesia: Yes (wakes up aggressive and confused after anesthesia) NPO: Yes ASA Class: II Final Preanesthetic Review: No Changes in Pt Med Stat, Meds/Allgs Chart Reviewed, Consent Obtained/Reviewed and Anes Risks/Benef Reviewed Patient Risk: Low Procedure Risk: Low Anesthetic Plan Anesthetic Plan: GA and Agree w/ Assess. and Plan Disposition: Standard PACU
--- NOTE | 2024-08-20 16:55 | MHC.SHP ---
Pre-Procedural Eval Section A - 24 Hr Update-Section A only Date of Service: 08/20/24 The patient is an INPATIENT: Yes Section B - Complete if H&P > 30 days Chief Complaint: nephrolithiasis, uncontrolled pain Allergies: Allergies Allergy/AdvReac Type Severity Reaction Status Date / Time Cephalosporins Allergy Severe Angioedema Verified 08/19/24 03:14 cefaclor [From CECLOR] Allergy Unknown ANGIOEDEMA Verified 08/19/24 02:50 Penicillins [PENICILLINS] Allergy Unknown HIVES Verified 08/19/24 02:50 Plan Diagnosis/Plan: Unchanged I have reviewed the history and physical and performed a pertinent physical examination on my patient. No changes have occurred unless specified. Plan for Cystoscopy, right ureteroscopy, possible laser lithotripsy, possible ureteral stent. Risks discussed included but not limited to, possible need to repeat procedure if stone is not completely fragmented, Irritative voiding symptoms, bladder spasms, urgency, blood in urine. Time Spent With Patient Time: Total time managing care of this patient today ____ minutes.
--- NOTE | 2024-08-20 19:07 | P.OP_ITS ---
Operative Note Operative Note Date of Service: 08/20/24 Narrative: PreOperative Diagnosis:?? Right ureteral stone, right hydronephrosis, urethral stenosis Post Operative Diagnosis:?? right hydronephrosis, urethral stenosis Procedure: - urethral dilation, Cystoscopy, retrograde, right ureteroscopy stent insertion, 6 [place] by 24 cm Surgeon:?Dr Va Crenshaw Anesthesia:? General Indications for procedure: right ureteral stone with hydronephrosis intractable right abdominal and flank pain Procedure: After informed consent was verified the patient was brought to the operating placed on the OR table in supine position.? General Anesthesia was administered per protocol.? The patient was placed in lithotomy position, prepped and draped in the usual sterile fashion.? Safety pause time-out and side of surgery confirmed.? Antibiotics confirmed. the urethra was dilated with [place] female sounds 18 Mosotho to 24 [place]oth[place] sequentially A 22 Mosotho cystoscope was inserted transurethrally, The bladder was visualized.? Both ureteric orifices were in normal position. there was edema noted at the right olivia trigone.An open-ended ureteral catheter was passed into the Right ureteral orifice and a retrograde examination was performed. There was narrowing at the distal right ureter and dilatation of the proximal ureter. A guidewire was passed through the ureteral catheter into the kidney. The balloon dilator size12 fr x 4 cm was passed over the guide-wire the balloon was inflated to 8 mmHg and the intramural ureter was dilated for 45 seconds. The balloon was deflated and removed. The cystoscope was removed, leaving both guidewires in place. The guidewire was used as the safety and was attached to the draping. The semi rigid ureteroscope was passed transurethrally alongside the guidewire there was some edema noted in the distal ureter a stone was not visualized the ureteroscope was passed to the proximal ureter there were no stones visualized within the ureter. The ureteroscope was removed. The cystoscope was passed over the safety guidewire. A? Six Mosotho by 24 cm stent was placed into the ureter and renal pelvis under a combination of fluoroscopy and direct visualization. the string was left attached to the stent.The bladder was emptied.? The rigid cystoscope was removed. ? The string was taped to the labia. Belladonna suppository per rectum administered. The patient tolerated the procedure well and was brought to the recovery room in stable condition. Complications: None Drains: Ureteral stent as dictated above
[2024-08-20] MEDS: Phenazopyridine HCL 200 MG TABLET PO (20:41)
[2024-08-20] MEDS: Zolpidem Tartrate 5 MG TABLET PO (21:37)
[2024-08-20] MEDS: Tamsulosin HCL 0.4 MG CAPSULE PO (21:37)
[2024-08-21] MEDS: Lactated Ringers 1,000 ML 100 ML IVCONT (02:30)
[2024-08-21] MEDS: HYDROmorphone HCl 1 MG/ML SYRINGE 0.5 MG IVPUSH (02:43)
[2024-08-21 03:41] VITALS: BP 100/52; PULSE 58; RESP 18; TEMP 36.7; O2SAT 98
[2024-08-21 06:19] LABS: Anion Gap 11 (12-20); Blood Urea Nitrogen 7 mg/dL (9-16); Calcium 8.6 mg/dL (8.4-10.2); Carbon Dioxide 18 mmol/L (22-29); Chloride 113 mmol/L (96-108); Creatinine Clr Calc Pharmacy 115.7; Estimated Glomerular Filt Rate > 60; Glucose Random 91 mg/dL (60-115); Potassium 4.4 mmol/L (3.3-5.1); Sodium 138 mmol/L (135-145)
[2024-08-21] MEDS: HYDROmorphone HCl 0.5 MG/0.5 ML SYRINGE IVPUSH ×3 (07:07→15:46)
[2024-08-21] MEDS: Phenazopyridine HCL 200 MG TABLET PO (07:07)
[2024-08-21 07:22] VITALS: BP 106/62; PULSE 72; RESP 16; TEMP 36.7; O2SAT 95
[2024-08-21] MEDS: Topiramate 25 MG TABLET 50 MG PO (08:10)
[2024-08-21] MEDS: Sertraline HCL 100 MG TABLET PO (08:11)
[2024-08-21] MEDS: busPIRone HCl 5 MG TABLET PO (08:11)
[2024-08-21] MEDS: Lactated Ringers 1,000 ML 125 ML IVCONT ×2 (08:11→15:46)
[2024-08-21] MEDS: Loratadine 10 MG TABLET PO (08:11)
--- NOTE | 2024-08-21 08:23 | P.PNIM_ITS ---
Subjective Subjective Date of Service: 08/21/24 Interval History: f/u on kidney stones, s/p cystoscopy urethral dilation, Cystoscopy, retrograde, right ureteroscopy stent insertio on 08/20 she is still reporting right flank pain of 8/10 Physical Exam 2 Vital Signs: Vital Signs: Last Vital Signs Temp 98.1 F 08/21/24 07:22 Pulse 72 08/21/24 07:22 Resp 16 08/21/24 07:22 BP 106/62 08/21/24 07:22 Pulse Ox 95 08/21/24 07:22 O2 Del Method Room Air 08/21/24 07:22 O2 Flow Rate 6 08/20/24 19:08 BMI result Body Mass Index 39.9 Const: Other: General: AO X 3, no acute distress Resp: CTA bilateral CVS: S1,S2,RRR GI: +BS, right flank tendernress, no distention Skin: No rash Neuro: motor grossly intact Psych: appropriate affect Objective Data Active Medications Acetaminophen (Acetaminophen 325 Mg Tablet) 650 mg PO Q6H PRN PRN Reason: Pain, Mild 1-3,fever,headache Buspirone HCl (Buspirone Hcl 5 Mg Tablet) 5 mg PO BID [facility] Last Admin: 08/21/24 08:11 Dose: 5 mg Documented By: KATIE Calcium Carbonate (Calcium Carbonate 750 Mg Tab.Chew) 750 mg PO Q4H PRN PRN Reason: Heartburn Clonazepam (Clonazepam 0.5 Mg Tablet) 0.5 mg PO DAILY PRN PRN Reason: Anxiety Last Admin: 08/19/24 11:47 Dose: 0.5 mg Documented By: BRYCE Enoxaparin Sodium (Enoxaparin Sodium 40 Mg/0.4 Ml Syringe) 40 mg SUBCUT Q24H [facility] Last Admin: 08/20/24 11:01 Dose: Not Given Documented By: THOMAS Non-Admin Reason: going to OR Hydromorphone HCl (Hydromorphone Hcl 0.5 Mg/0.5 Ml Syringe) 0.5 mg IVPUSH Q4H PRN; Protocol PRN Reason: Pain, Severe (Pain Scale 7-10) Last Admin: 08/21/24 07:07 Dose: 0.5 mg Documented By: KATIE Lactated Ringer's (Lr) 1,000 mls @ 100 mls/hr IVCONT .Q10H [facility] Last Admin: 08/21/24 02:30 Dose: 100 mls/hr Documented By: MARTY Lactated Ringer's (Lr) 1,000 mls @ 125 mls/hr IVCONT .Q8H [facility] Last Admin: 08/21/24 08:11 Dose: 125 mls/hr Documented By: KATIE Lidocaine HCl (Lidocaine Hcl 2 % Jelly 5 Ml Tube) 1 appl TOPICAL TID PRN; Protocol PRN Reason: Pain, Mild (Pain Scale 1-3) Last Admin: 08/19/24 16:30 Dose: 1 appl Documented By: CARMELINA Loratadine (Loratadine 10 Mg Tablet) 10 mg PO DAILY [facility] Last Admin: 08/21/24 08:11 Dose: 10 mg Documented By: KATIE Magnesium Hydroxide (Milk Of Magnesia 30 Ml Oral.Susp) 30 ml PO DAILY PRN PRN Reason: Constipation Melatonin (Melatonin 3 Mg Tablet) 6 mg PO BEDTIME PRN PRN Reason: Insomnia Naloxone HCl (Naloxone Hcl 0.4 Mg/Ml Vial) 0.04 mg IVPUSH Q5M PRN PRN Reason: Excessive sedation or RR < 8 Ondansetron HCl (Ondansetron Hcl 4 Mg/2 Ml Vial) 4 mg IVPUSH Q8H PRN PRN Reason: Nausea and Vomiting Last Admin: 08/20/24 05:59 Dose: 4 mg Documented By: ENMA Phenazopyridine HCl (Phenazopyridine Hcl 200 Mg Tablet) 200 mg PO BIDWM [facility] Stop: 08/22/24 08:01 Last Admin: 08/21/24 07:07 Dose: 200 mg Documented By: KATIE Sertraline HCl (Sertraline Hcl 100 Mg Tablet) 100 mg PO DAILY [facility] Last Admin: 08/21/24 08:11 Dose: 100 mg Documented By: KATIE Sodium Chloride (0.9 % Sodium Chloride Flush 3 Ml Syringe) 3 ml IVFLUSH QSHIFT [facility] Last Admin: 08/21/24 07:42 Dose: Not Given Documented By: KATIE Non-Admin Reason: IV Running Tamsulosin HCl (Tamsulosin Hcl 0.4 Mg Capsule) 0.4 mg PO BEDTIME [facility] Last Admin: 08/20/24 21:37 Dose: 0.4 mg Documented By: MARTY Topiramate (Topiramate 25 Mg Tablet) 50 mg PO DAILY [facility] Last Admin: 08/21/24 08:10 Dose: 50 mg Documented By: KATIE Zolpidem Tartrate (Zolpidem Tartrate 5 Mg Tablet) 5 mg PO BEDTIME [facility] Last Admin: 08/20/24 21:37 Dose: 5 mg Documented By: MARTY Labs 08/19/24 03:25 08/21/24 05:17 Labs: Laboratory Results - last 24 hr 08/21/24 05:17 Anion Gap 11 L Estim Creat Clear Calc 115.7 Estimated GFR > 60 Random Glucose 91 Calcium 8.6 Assessment and Plan (1) Kidney stone: Status: Acute (2) Ureteral stone: Status: Acute (3) Incomplete bladder emptying: Status: Acute Plan 39F with a history of asthma and uretral stricture requiring CIC who presents with sudden onset right flank pain which began the evening prior to hospitalization. she was found to have obstructive uropathy secondary to a 3 mm right UVJ stone. Despite multiple L of fluids as well as multiple rounds of IV analgesics and Flomax plus antibiotics, the patient continues to be symptomatic. Obstructive uropathy secondary to 3 mm right UVJ stone with hydronephrosis, persistent Righ flank pain s/p urethral dilation, Cystoscopy, retrograde, right ureteroscopy stent insertion oin 3/ oral pain medication, dc per urology instruction Ureteral stricture, s/p dilatation as above Does self intermittent catheterization monitor urine output hyperchloremic metabolic acidosis monitor, LR and repeat Asthma no evidence of exacerbation Continue baseline inhalers Mood Continue baseline meds Full Code DVT pptx, Lovenox Pt with UVJ stone causing obstructive uropathy with intractable pain and inability to tolerate oral intake, with possible urological intervention needed, therefore expected to require at a minimum 2 midnights in the hospital for management. Hence, will be admitted as inpt. Quality Stroke Does the patient have a stroke diagnosis?: No VTE Prior VTE?: No VTE Risk Level:: Medical - moderate - high VTE Device Contraindication: N/A - Device Ordered VTE Drug Contraindication: N/A - Med Ordered
--- NOTE | 2024-08-21 08:28 | PM.DS ---
DS: Providers Provider Date of Service: 08/21/24 Date of admission: 08/19/24 10:18 Date of discharge: 08/21/24 Primary care physician: Kenyatta Perdomo MD Consults: 08/19/24 10:18 Consult to Urology Routine Consulting Provider: [facility] Reason for consultation: nephrolithiasis, uncontrolled pain DS: Diagnosis Discharge Diagnosis (1) Kidney stone: Status: Acute (2) Ureteral stone: Status: Acute (3) Incomplete bladder emptying: Status: Acute DS: Summary Hospital Course Hospital Course: Chief Complaint: R flank pain, nausea The patient is a 39-year-old female with a past medical history of asthma and urethral stricture with intermittent self catheterization who presents to the emergency room with complaints of right flank and right lower quadrant abdominal pain which began at 20:00, the evening prior to hospitalization. The patient states that initially she thought this was related to constipation and attempted to move her bowels. However her pain continued and subsequently she began feeling nauseous. She states that around 02:00 on the day of hospitalization her pain became so severe and hence she presented to the emergency room. She describes the pain as colicky in nature occurring several times an hour and lasting several minutes. She reports ongoing nausea with a loss of appetite. She denies any fevers or chills. Denies any hematuria. Denies any dysuria. In the emergency room the patient underwent workup which revealed a obstructing 3 mm right-sided calculus at the right UVJ causing hydroureteronephrosis. The patient was treated with 1 L of normal saline, IV Zofran, IV Toradol 30 mg, IV morphine 4 mg, IV Dilaudid 0.5 mg, Flomax and Levaquin. Initially patient had some improvement, however upon attempting to urinate, her pain has returned. Given her persistent nausea and inability to tolerate oral intake along with intractable pain requiring 3 doses of IV analgesics and less than 8 hours, the patient will be admitted for further care. hosppitalist: The patient was admitted for management of a kidney stone, receiving intravenous (IV) pain medication and hydration. As she did not spontaneously pass the stone, she underwent a surgical intervention on August 20, including urethral dilation, cystoscopy, retrograde pyelogram, and placement of a ureteral stent. The patient reports residual pain, which will be managed with oxycodone. She is scheduled for outpatient follow-up with both Urology and her primary care physician (PCP). Urology has prescribed pyridium 100mg three times daily (TID) with meals for symptomatic relief, and Flomax 0.4mg daily. She is instructed to follow up with the Urology nurse at [address] at 9:00 AM on Friday for ureteral stent removal. Time Attestation Discharge Coordination Time (in mins): 35 Quality: Safe Use of Opioids Does Pt have an Active Cancer Diagnosis on the Problem List?: No Quality: Stroke Does the patient have a stroke diagnosis?: No Physical Exam Vital Signs: Vital Signs: Last Vital Signs Temp 98.1 F 08/21/24 07:22 Pulse 72 08/21/24 07:22 Resp 16 08/21/24 07:22 BP 106/62 08/21/24 07:22 Pulse Ox 95 08/21/24 07:22 O2 Del Method Room Air 08/21/24 07:22 O2 Flow Rate 6 08/20/24 19:08 BMI result Body Mass Index 39.9 Const: Other: General: AO X 3, no acute distress Resp: CTA bilateral CVS: S1,S2,RRR GI: +BS, NT, no distention Skin: No rash Neuro: motor grossly intact Psych: appropriate affect DS: Data Data Completed and Pending Labs on day of discharge: Laboratory Results - last 24 hr 08/21/24 05:17 Sodium 138 Potassium 4.4 Chloride 113 H Carbon Dioxide 18 L Anion Gap 11 L BUN 7 L Creatinine 0.67 Estim Creat Clear Calc 115.7 Estimated GFR > 60 Random Glucose 91 Calcium 8.6 Discharge Plan Discharge Anticipated Discharge Date/Time: 08/21/24 13:41 Patient Disposition: Home, Self-Care Discharge Diagnosis: Kidney stone Referrals: Va Crenshaw MD [Physician] - 08/23/24 Kenyatta Perdomo MD [Primary Care Provider] - 1 Week Discharge Medications: New tamsulosin 0.4 mg Capsule 0.4 mg PO BEDTIME Qty: 90 0RF phenazopyridine [Pyridium] 100 mg tablet 100 mg PO TID Qty: 21 0RF Rx Instructions: Take with meals oxycodone 5 mg tablet 5 mg PO Q6H PRN (Reason: pain (scale score 7-10)) Qty: 15 0RF Rx Instructions: Partial Fill upon patient request. Continued (DME) catheter 16 Fr misc See Rx Instructions .Route Qty: 30 5RF Rx Instructions: As directed once daily for urethral dilation phentermine 15 mg capsule 15 mg PO DAILY mometasone 0.1 % ointment 1 appl topical DAILY PRN (Reason: Rash) zolpidem 5 mg tablet 5 mg PO BEDTIME loratadine 10 mg tablet 10 mg PO DAILY topiramate 50 mg tablet 50 mg PO DAILY clonazepam 0.5 mg tablet 0.5 mg PO DAILY PRN (Reason: Anxiety) sertraline 100 mg tablet 100 mg PO DAILY buspirone 5 mg tablet 5 mg PO BID albuterol sulfate 90 mcg/actuation HFA aerosol inhaler 2 puff inhalation Q6H Discharge Orders: Discharge Order (Routine); Ordered 08/21/24 Ordered By: Marlo Hutchison Diet: Advance to usual diet Activity on Discharge: As tolerated Stand Alone Forms: Patient Portal Discharge page, Work/School Release Print Language: [place] Care Plan Goals: recovery from kidney stones and abodminal pain Health Concerns: kidney stone urethra stricture Plan of Treatment: Take Pyridium 100 mg 3 times a day with measls take Flomax 0.4 mg at bedtime you have a follow up appointment at [address] at the Urology Office at 9 AM Follow up with your doctor in a week Assessment: see above Patient Instructions: Kidney Stones (ED)
[2024-08-21] MEDS: Enoxaparin Sodium 40 MG/0.4 ML SYRINGE SUBCUT (10:34)
[2024-08-21] MEDS: Milk of Magnesia 30 ML ORAL.SUSP PO (11:49)
--- NOTE | 2024-08-21 11:53 | HO.POSTANES ---
Post Anesthesia Evaluation Post Anesthesia Evaluation Date of Service: 08/21/24 Vital Signs: Vital Signs Temp Pulse Resp BP Pulse Ox O2 Del Method 08/21/24 07:22 98.1 F 72 16 106/62 95 Room Air 08/21/24 03:41 98.0 F 58 18 100/52 L 98 Room Air Anesthesia: General LMA Mental Status: Awake Pain Control: Satisfactory (still right flank pain) Nausea/Vomiting: None Hydration: Adequate Anesthesia-Related Issues: No Anes. Related Issues
[2024-08-21 12:00] VITALS: BP 120/65; PULSE 97; RESP 16; TEMP 36.5; O2SAT 95
[2024-08-21 13:13] LABS: Anion Gap 12 (12-20); Carbon Dioxide 21 mmol/L (22-29); Chloride 111 mmol/L (96-108); Potassium 4.1 mmol/L (3.3-5.1); Sodium 140 mmol/L (135-145)
[2024-08-21 15:31] VITALS: BP 111/54; PULSE 85; RESP 16; TEMP 36.6; O2SAT 95
--- NOTE | 2024-08-21 15:48 | MHC.CM.PN ---
Patient medically cleared for dc home self care via private transport.
== END 2024-08-21 16:32 | disposition home or self-care (01) | DRG 660 ==
LOC: HO.ED 09:12 → HO.EDOVER 10:25 → HO.S3 11:48
PROVIDERS: Emergency Medicine; Urology; Admitting Provider Family Medicine; Emergency Provider Emergency Medicine; PCP Pediatrics; Visit Provider Internal Medicine
DX: N35.92 Unspecified urethral stricture, female (principal); N13.2 Hydronephrosis with renal and ureteral calculous obstruction; J45.909 Unspecified asthma, uncomplicated; Z79.899 Other long term (current) drug therapy
CPT/HCPCS: 36415; 74176; 80048; 80051; 80053; 80076; 81001; 82248; 82803; 83690; 84702; 85025; 99285; C1726; C1758; C1769; C2617; J0744; J1171; J1650; J1885; J2003; J2250; J2270; J2405; J2704; J3010; J7120; Q9967

== ENCOUNTER → 2024-08-19 03:12 | Outpatient (BNV) | payer OTHER, SELFPAY | PROVIDERS: Emergency Provider Emergency Medicine; PCP Pediatrics; Visit Provider Radiology Diagnostic Radiology | DX: N13.9 Obstructive and reflux uropathy, unspecified (principal) | CPT/HCPCS: 74176 ==

== ENCOUNTER → 2024-08-19 10:18 | Outpatient (BNV) | payer OTHER, SELFPAY | PROVIDERS: Admitting Provider Family Medicine; Emergency Provider Emergency Medicine; PCP Pediatrics; Visit Provider Family Medicine | DX: N20.0 Calculus of kidney (principal) | CPT/HCPCS: 99222 ==

== ENCOUNTER → 2024-08-19 10:18 | Outpatient (BNV) | payer OTHER, SELFPAY | PROVIDERS: Admitting Provider Family Medicine; Emergency Provider Emergency Medicine; PCP Pediatrics; Visit Provider Urology | DX: N20.1 Calculus of ureter (principal); R33.9 Retention of urine, unspecified; N35.92 Unspecified urethral stricture, female | CPT/HCPCS: 99222 ==

== ENCOUNTER → 2024-08-23 11:24 | Outpatient (BNVA) | payer OTHER, SELFPAY | PROVIDERS: PCP Pediatrics | DX: Z46.6 Encounter for fitting and adjustment of urinary device (principal) ==

== ENCOUNTER 2024-10-05 10:24 | Outpatient (AMB) | payer OTHER, SELFPAY ==
--- NOTE | 2024-10-05 10:35 | A.OFFVIS_ITS ---
Intake Visit Reasons: 3m follow up Intake Note: Patient presents for follow up visit on: urethral stricture and kidney stone Urology Medications: none Blood Thinner: none * Patient CIC* Yard Inspector Required: No Accompanied by: Self / Same As Patient Allergies Cephalosporins Allergy (Severe, Verified 10/05/24 21:58) Angioedema cefaclor [From CECLOR] Allergy (Unknown, Verified 10/05/24 21:58) ANGIOEDEMA Penicillins [PENICILLINS] Allergy (Unknown, Verified 10/05/24 21:58) HIVES Medication List - Last Reconciled 10/05/24 by DIANNA Celestin albuterol sulfate 90 mcg/actuation 2 puffs inhalation Q6H buspirone 5 mg PO BID catheter As directed once daily for urethral dilation clonazepam 0.5 mg PO DAILY PRN loratadine 10 mg PO DAILY mometasone 0.1% 1 appl topical DAILY PRN phentermine 15 mg PO DAILY sertraline 100 mg PO DAILY tamsulosin 0.4 mg PO BEDTIME topiramate 50 mg PO DAILY zolpidem 5 mg PO BEDTIME HPI Comments Details: Edmond is a very pleasant 39-year-old female patient of Dr. Perdomo who was accompanied by her friend at today's office visit. She presents to the office today for follow-up of her urethral stricture, incomplete bladder emptying, and nephrolithiasis. In discussion with the patient today she reports since her last office visit here she seeked emergency room care for right-sided flank pain she had been experiencing at which time CT 08/31 noted right-sided obstructive uropathy with mild hydroureteronephrosis and an obstructing 3 mm calculus at the right ureterovesicalar junction. She underwent surgical procedure with Dr. Arya Ceballos ureteral dilatation, cystoscopy, retrograde, right ureteroscopy, and insertion of stent with string. She follow-up in the office shortly after procedure with nursing to remove string stent. She discusses feeling she continues with episodes of right-sided flank pain. She does report feeling since surgical procedure her longstanding history of self dilating for urethral stricture has improved. Unable to obtain urine for urinalysis as patient unable to void. She otherwise denies urinary urgency, urinary frequency, incontinence, nocturia, hematuria, dysuria, foul smelling urine, changes to urinary stream, fever, and or chills. She discusses her int entional weight loss of 15 lb. We discussed at length potential causes of nephrolithiasis in correlation of adequate hydration relation to nephrolithiasis. We also discussed obtaining imaging as patient continues to report right-sided flank pain however no CVA tenderness noted on exam today. All questions were answered. She otherwise offers no other issues or concerns at this time. [facility] Medical History Incomplete bladder emptying Social History Household Members: Significant Other Housing: Apartment Do you presently have visiting nurse or other home services: No Patient Tobacco Use Status: Never used Tobacco service: No Review of Systems Const All systems reviewed & are unremarkable except as noted in HPI and below Reports no additional complaints Eyes Reports no additional complaints ENT Reports no additional complaints Card Reports no additional complaints Resp Reports no additional complaints GI Reports no additional complaints Reports as per HPI Musc Reports no additional complaints Neuro Reports no additional complaints Psych Reports no additional complaints Endo Reports no additional complaints Hector/Lymph Reports no additional complaints Aller/Immun Reports no additional complaints Physical Exam Const General: cooperative, healthy appearing, comfortable, no acute distress, well developed, alert and awake Orientation/consciousness: patient oriented x3 Limitations: no limitations HEENT Head: Yes normal to inspection, Yes normocephalic and Yes atraumatic Ears: hearing grossly normal bilaterally Eyes General: appearance normal, both eyes and all related structures Neck Neck: Yes normal visual inspection and Yes trachea midline Chest Chest palpation & inspection: normal inspection of the chest Resp Effort & Inspection: normal respiratory effort and able to speak in complete sentences Cardio Rate: regular rate GI Inspection: Yes normal to inspection General: Yes no CVA tenderness External Female Exam: other (ureteral stricture ) Back/Spine/Pelvis Back: no CVA tenderness Skin General skin exam: no rashes or lesions noted Neuro General: patient oriented x3 Extrem General: Yes normal to inspection Psych Appearance: grossly normal and well kempt Mental Status: mental status grossly normal Speech and movement: Normal speech and movement present and Clear speech present Affect: normal affect Attitude: cooperative Thought process: Normal thought process present Thought content: Normal thought content present Insight: Fair insight present (Psych) Judgement: Fair judgement present (Psych) Assessment & Plan Assessment & Plan (1) Ureteral stone: Code(s): N20.1 - Calculus of ureter Category: Medical (2) Kidney stone: Code(s): N20.0 - Calculus of kidney Category: Medical (3) Unspecified urethral stricture, female: Code(s): N35.92 - Unspecified urethral stricture, female Category: Medical (4) History of urethral stricture: Code(s): Z87.448 - Personal history of other diseases of urinary system Category: Medical (5) Flank pain: Code(s): R10.9 - Unspecified abdominal pain Category: Medical Plan Unable to obtain urine for urinalysis as patient unable to void We discussed potential causes of nephrolithiasis as well as further workup and risks and benefits of these interventions. Will obtain retroperitoneal ultrasound for further assessment evaluation. Continue self dilating We discussed worsening symptoms. We discussed adding 1 oz of lemon juice to water daily. We discussed near future metabolic workup to include Litholink and labs. We discussed importance of adequate hydration relation to nephrolithiasis as well as overall health and well-being. Follow-up in 1-3 months with imaging to be completed prior; or sooner with any issues, concerns, and or questions. Orders: Orders US retroperitoneal comp Today N20.0 - Calculus of kidney, N20.1 - Calculus of u reter, N35.92 - Unspecified urethral stricture, female, Z87.448 - Personal history of other diseases of urinary system Patient Instructions: The patient had an opportunity to ask questions regarding the treatment plan. All questions were answered. Physical exam, labs, and imaging were discussed and reviewed in detail. As well as risks, benefits, and discussion of treatment choices. No major barriers to understanding were identified. The patient expressed understanding and agreement with the above treatment plan. The patient was made aware they should contact our office by phone for worsening of their current condition, the appearance of new symptoms, or with any questions or concerns. Compliance is encouraged with any medications and follow up testing that is ordered. It is a privilege to be allowed the opportunity to participate in? your urological care.? Again, if you have any questions or concerns If you have any questions or concerns please do not hesitate to contact me. The office is [phone]. This note is constructed using voice recognition software. While every effort has been made to ensure accuracy cmv driver errors may have been included. Yours sincerely, MARGARITA Celestin-YOLANDA Coding Level of Care Code Est Pt Level 3 (83358) Diagnoses Ureteral stone N20.1 Kidney stone N20.0 Unspecified urethral stricture, female N35.92 History of urethral stricture Z87.448 Flank pain R10.9
--- OUTSIDE RECORDS SUMMARY | 2024-10-05 12:04 | XMS_ITS | Encounter Summary ---
Author Organization [employer] Address [address] [place] [address] Care Team Providers Care Cma Name Role Phone Kenyatta Perdomo MD Primary Care Provider [phone] Encounter Details Date Type Department Care Team (Late st Contact Info) Description 08/04/2024 Orders Only [facility] [address] [place] [address] ProviderMilli MD Social History Tobacco Use Types Packs/Day Years Used Date Smoking Tobacco: Never Passive Smoke Exposure: Never Smokeless Tobacco: Never Alcohol Use Standard Drinks/Week Comments Defer 0 (1 standard drink = 0.6 oz pur e alcohol) Depression Answer Date Recorded Patient Health Questionnaire-9 Score 9 01/16/2024 Patient Health Questionnaire-9 Score 9 01/16/2024 Last PHQ-9: Questionnaire Data Not on file 0 01/16/2024 Housing Stability Answer Date Recorded What is your housing situation today? I have [place] 01/16/[address] you li ve. Do you have problems with any of the following? None of the above 01/16/2024 Food Insecurity Answer Date Recorded Within the past 12 months, y ou worried that your food would run out before you got money to buy more: Never True 01/16/2024 Within the past 12 months,th e food you bought just didn't last and you didn't have enough money to get more: Never True 02/2024 Transportation Answer Date Recorded In the past 12 months, has l ack of transportation kept you from medical appts, meetings, work or from getting things needed for daily living? No 01/16/2024 Utilities Answer Date Recorded In the past 12 months, has t he electric, gas, oil or water company threatened to shut off services in your home? No 01/16/2024 Depression Answer Date Recorded Patient Health Questionnaire-2 Score 2 01/16/2024 Internet Access Answer Date Recorded Internet Access Q1 Yes 02/09/2024 Internet Access Q2 Not on file 02/09/2024 Comments Unknown Sex and Gender Information Value Date Recorded Sex Assigned at Female 04/08/2022 10:19 AM EDT Legal Sex Female 10:19 AM EDT Gender Identity Female 06/28/2022 10:14 AM EST Sexual Orientation Straight 04/08/2022 10 :19 AM EDT documented as of this encounter Plan of Treatment Upcoming Encounters Date Type Department Care Team ([facility] st Contact Info) Description 10/18/2024 10:00 AM EDT Office Visit [facility] ADULT DENTAL [address] [place] [address] Sunshine Segovia 10/26/2024 9:00 AM EDT Office Visit [facility] ADULT DENTAL [address] [place] [address] Wilman Boston DMD [address] [place] [address] 11/03/2024 9:15 AM EDT Office Visit [facility] MED & PEDS [address] [place] [address] Kenyatta Perdomo MD [address] [place] [address] documented as of this encounter Procedures Procedure Name Priority Date/Time Associated Diagnosis Comments XR CHEST 2 VIEWS Routine 08/03/2024 9:11 AM EST documented in this encounter Results * XR Chest 2 Views (08/03/2024 9:11 AM EST) Anatomical Region Laterality Modality Chest Radiographic Maria ging us Historical Provider MD TIJERINA XR PROCEDURES Final R esult documented in this encounter Visit Diagnoses Not on filedocumented in this encounter Additional Health Concerns Assessment Noted Time PHQ-9 Depression Total Score: 9 01/16/20 24 9:46 AM EDT documented as of this encounter Care Teams Cma Relationship Specialty Start Date End Date Kenyatta Perdomo MD [address] [place] [address] PCP - General Family Medicine 06/09/18 documented as of this encounter
--- OUTSIDE RECORDS SUMMARY | 2024-10-05 12:04 | XMS_ITS | Encounter Summary ---
Author Organization [employer] Address [address] [place] [address] Care Team Providers Care Rehabilitation Nurse Name Role Phone Kenyatta Perdomo MD Primary Care Provider [phone] Encounter Details Date Type Department Care Team (Late st Contact Info) Description 03/14/2023 Abstract [facility] AD[facility] DENTAL [address] [place] [address] Kip Gomez DDS [address] [place] [address] Social History Tobacco Use Types Packs/Day Years Used Date Smoking Tobacco: Never Passive Smoke Exposure: Never Smokeless Tobacco: Never Housing Stability Answer Date Recorded What is your housing situation today? I have [place] 03/17/[address] you li ve. Do you have problems with any of the following? None of the above 03/17/2023 Food Insecurity Answer Date Recorded Within the past 12 months, y ou worried that your food would run out before you got money to buy more: Never True 03/17/2023 Within the past 12 months,th e food you bought just didn't last and you didn't have enough money to get more: Never True 02/2023 Transportation Answer Date Recorded In the past 12 months, has l ack of transportation kept you from medical appts, meetings, work or from getting things needed for daily living? No 03/17/2023 Utilities Answer Date Recorded In the past 12 months, has t he electric, gas, oil or water company threatened to shut off services in your home? No 03/17/2023 Comments Unknown Sex and Gender Information Value Date Recorded Sex Assigned at Female 04/08/2022 10:19 AM EDT Legal Sex Female 10:19 AM EDT Gender Identity Female 06/28/2022 10:14 AM EST Sexual Orientation Straight 04/08/2022 10 :19 AM EDT documented as of this encounter Plan of Treatment Upcoming Encounters Date Type Department Care Team (Late st Contact Info) Description 10/18/2024 10:00 AM EDT Office Visit [facility] AD[facility] DENTAL [address] [place] [address] Sunshine Segovia 10/26/2024 9:00 AM EDT Office Visit [facility] ADULT DENTAL [address] [place] [address] Wilman Boston, COLEMAN [address] [place] [address] 11/03/2024 9:15 AM EDT Office Visit [facility] MED & PEDS [address] [place] [address] Kenyatta Perdomo MD [address] [place] [address] documented as of this encounter Visit Diagnoses Not on filedocumented in this encounter Care Teams Rehabilitation Nurse Relationship Specialty Start Date End Date Kenyatta Perdomo MD [address] [place] [address] PCP - General Family Medicine 06/09/18 documented as of this encounter
--- OUTSIDE RECORDS SUMMARY | 2024-10-05 12:04 | XMS_ITS | Clinical Summary ---
Author Organization [facility] Address [address] [place] [address] Phone Care Team Providers Care Karate Instructor Name Role Phone Unavailable Primary Care Provider Unavailabl e Immunizations Immunization Administration Dates Next Due DTP 02/06/1998, 7,11/06/1996,09/06,12/06/1990 HPV, Quadrivalent 10/23/2007,03/23/2007,01/22/20 07 Hep B, ped/adol 10/31/1998,05/01/1998,04/08/1998 Hib (HbOC) 04/08/1999 IPV 02/06/1998, 7,11/06/1996,09/06,12/06/1990 MMR 04/08/1998,08/24/1987 Meningococcal Conj (Menactra) MCV4P 01/21/2007 Td (adult) (Tenivac), 5 Lf t etanus toxoid, PF, adsorbed 10/31/1998 Tdap 01/21/2007 Family History Relation Name Status Comments Daughter Alive Daughter: Asthm a Father Alive Father: Alive a nd well Half-Brother 1 Alive Half brother (P): Alive and well Half-Brother 2 Alive Half brother (M): Alive and well, Alive and well, Alive and well Maternal Grandmother Materna l grandmother: Diabetes mellitus Mother Alive Mother: Migrain es Paternal Grandmother Paterna l grandmother: Sudden /[place] under age 55, Diabetes mellitus, Sister Alive Sister: Asthma Social History Tobacco Use Types Packs/Day Years Used Date Smoking Tobacco: Never Assessed Comments Unknown Sex and Gender Information Value Date Recorded Sex Assigned at Not on file Legal Sex Female 4:25 PM EDT Gender Identity Not on file Sexual Orientation Not on file Plan of Treatment Health Maintenance Due Date Last Done Comments Hepatitis B Vaccines (3 of 3 - 3-dose series) 12/26/1998 10/31/1998, 05/01/1998, 04/08/1998 Varicella Vaccines (1 of 2 - 13+ 2-dose series) 1999 DTaP,Tdap,and Td Vaccines (6 - Td or Tdap) 01/21/2017 01/21/2007, 10/31/1998, 02/06/1998, Additional history exists Influenza Vaccines (#1) 2024 COVID-19 Vaccine (2023- season) 2024 IPV Vaccines Completed 02/06/1998, 01/09, 11/06/1996, Additional history exists MMR Vaccines Completed 04/08/1998, 08/24/1987 HIB Vaccines Aged Out 04/08/1999 No longer eligi ble based on patient's age to complete this topic Meningococcal Vaccine Aged Out 01/21/2007 No sarah cristopher eligible based on patient's age to complete this topic HPV Vaccines Completed 10/23/2007, 03/09, 01/21/2007 Hepatitis A Vaccines Aged Out No long er eligible based on patient's age to complete this topic Men B Vaccine Aged Out No longer elig ible based on patient's age to complete this topic Pneumococcal Vaccine Aged Out No long er eligible based on patient's age to complete this topic
--- OUTSIDE RECORDS SUMMARY | 2024-10-05 12:04 | XMS_ITS | Encounter Summary ---
Author Organization [employer] Address [address] [facility] [address] [place] [address] Care Team Providers Care Rehabilitation Services Coordinator Name Role Phone Kenyatta Perdomo MD Primary Care Provider [phone] Encounter Details Date Type Department Care Team (Latest Contact Info) Description 09/06/2020 Abstract [facility] CONVERSIONS Dental, Provider, DDS Social History Tobacco Use Types Packs/Day Years [...] 10/18/2024 10:00 AM EDT Office Visit [facility] ADULT DENTAL [address] [place] [address] Sunshine Segovia 10/26/2024 9:00 AM EDT Office Visit [facility] ADULT DENTAL [address] [place] [address] Wilman Boston DMD [address] [place] [address] 11/03/2024 9:15 AM EDT Office Visit [facility] MED & PEDS [address] [place] [address] Kenyatta Perdomo MD [address] [place] [address] documented as of this encounter Visit Diagnoses Not on filedocumented in this encounter Care Teams Rehabilitation Services Coordinator Relationship Specialty Start Date End Date Kenyatta Perdomo MD [address] [place] [address] PCP - General Family Medicine 06/09/18 documented as of this encounter
--- OUTSIDE RECORDS SUMMARY | 2024-10-05 12:04 | XMS_ITS | Encounter Summary ---
Author Organization [employer] Address [address] [facility] [address] [place] [address] Care Team Providers Care Gold Frame Assembler Name Role Phone Kenyatta Perdomo MD Primary Care Provider [phone] Reason for Visit * Reason Comments Med Change Request Encounter Details Date Type Department Care Team ([facility] Contact Info) Description 06/04/2024 Refill [facility] MED & PEDS [address] [place], [place] [id number] Kenyatta Perdomo MD [address] [place] [address] Boil of buttock Social History Tobacco Use Types Packs/Day Years [...] housing situation today? I have [place] 01/16/[address] you [...] Description 10/18/2024 10:00 AM EDT Office Visit [facility] ADULT DENTAL [address] [place] [address] Sunshine Segovia 10/26/2024 9:00 AM EDT Office Visit [facility] ADULT DENTAL [address] [place] [address] Wilman Boston DMD [address] [place] [address] 11/03/2024 9:15 AM EDT Office Visit [facility] MED & PEDS [address] [place] [address] Kenyatta Perdomo MD [address] [place] [address] documented as of this encounter Visit Diagnoses Diagnosis Boil of buttock Carbuncle and furuncle of buttock documented in this encounter Additional Health Concerns Assessment Noted Time PHQ-9 Depression Total Score: 9 01/16/20 24 9:46 AM EDT documented as of this encounter Care Teams Gold Frame Assembler Relationship Specialty Start Date End Date Kenyatta Perdomo MD [address] [place] [address] PCP - General Family Medicine 06/09/18 documented as of this encounter
--- OUTSIDE RECORDS SUMMARY | 2024-10-05 12:04 | XMS_ITS | Clinical Summary ---
Author Organization [employer] Address [address] [place] [address] Care Team Providers Care Airplane Pilot Commercial Name Role Phone Kenyatta Perdomo MD Primary Care Provider [phone] Allergies Active Allergy Reactions Criticality Noted Date Comments Cefaclor Unknown 06/04/2010 Other reaction(s): THROAT SWELLS Penicillin V Unknown 06/04/2010 Penicillins 05/27/2022 Medications * This document contains information received from the source organization and may not represent a complete record from that organization. albuterol (Proventil HFA) 108 (90 Base) MCG/ACT inhaler Inhale 2 puffs every 4 (four) hours. 020 Active busPIRone (Buspar) 5 MG tablet Take 1 tablet by mouth every 8 (eight) hours. Active clonazePAM (KlonoPIN) 0.5 MG tablet Take 1 tablet by mouth. Active sertraline (Zoloft) 100 MG tablet Take 100 mg by mouth in the morning. 022 Active ibuprofen 800 MG tablet Take 1 tablet by mouth in the morning and 1 tablet at noon and 1 tablet in the evening. 021 Active cholecalciferol (Vitamin D-3) 25 MCG (1000 UT) tablet take one tab orally daily Active Levonorgestrel 19.5 MG intrauterine device 19.5 mg by Intrauterine route. 018 Active zolpidem (Ambien) 5 MG tablet Take 5 mg by mouth if needed at bedtime. 023 Active budesonide-form oterol (Symbicort) 160-4.5 MCG/ACT inhaler Inhale 2 puffs in the morning and at bedtime. Rinse mouth with water after use to reduce aftertaste and incidence of candidiasis. Do not swallow. 1 each Active albuterol (2.5 MG/3ML) 0.083% nebulizer solution Use via nebulizer every 6 hours prn wheezing 75 mL Active fluticasone (Flonase) 50 MCG/ACT nasal spray Administer 2 sprays into each nostril in the morning. 16 g 3 023 Active bacitracin-poly myxin b (Polysporin) ointmentIndicat ions:Boil of buttock Apply topically 2 times daily. 30 g 3 Active topiramate (Topamax) 50 MG tablet Take 1 tablet (50 mg) by mouth Once per day. 30 tablet 3 Active loratadine (Claritin) 10 MG tablet Take 1 tablet (10 mg) by mouth Once per day. 90 tablet 3 025 2025 Active mometasone (Elocon) 0.1 % ointment Apply topically Once per day. 45 g 5 025 2025 Active tamsulosin (Flomax) 0.4 MG 24 hr capsule Take 1 capsule (0.4 mg) by mouth Once per day. 30 capsule Active chlorhexidine (Peridex) 0.12 % solution Swish 15 mL morning and night for 1 minute. Spit, do not swallow. Do not eat or drink for 30 minutes following use. 473 mL Active phentermine 15 MG capsule TAKE 1 CAPSULE BY MOUTH BEFORE BREAKFAST 30 capsule Active phentermine 15 MG capsule Take 1 capsule (15 mg) by mouth before breakfast. 30 capsule 025 2024 Discontinued(R eorder (will not trigger notification to Pharmacy)) Active Problems Problem Noted Date Diagnosed Date Obesity (BMI 35.0-39.9 without comorbidity) 06/10 Stricture of female urethra 07/06/2024 Severe persistent asthma with allergic rhinitis 01/15/2023 Onychomycosis 01/15/2023 Carpal tunnel syndrome of left wrist 06/28/2022 Tendinitis of thumb 06/28/2022 Anxiety state 10/24/2011 Contact dermatitis 10/24/2011 Depressive disorder 10/24/2011 Migraine 10/24/2011 Resolved Problems Problem Noted Date Diagnosed Date Resolved Date Mild persistent allergic asthma 05/19/2018 08/04/2024 Encounters * This document contains information received from the source organization and may not represent a complete record from that organization. 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 (Primary Dx) 09/02/2024 10:00 AM EDT Nurse Only [facility] [address] [place] [address] Nury Mota LPN Encounter for immunization (Primary Dx) 09/01/2024 9:15 AM EDT Office Visit [facility] [address] [place] [address] Yue Herron MD Nephrolithiasis (Primary Dx) 09/01/2024 Travel 08/31/2024 Travel 08/23/2024 Patient Outreach [facility] [address] [place] [address] Kenyatta Perdomo MD Transition Of Care (Tcm) (HDF- scheduled and SDOH screening negative and Tobacco screening negative) 08/23/2024 Telephone [facility] [address] [place] [address] Kenyatta Perdomo MD Hospital Follow-up 08/19/2024 Orders Only GENERIC EXTERNAL DATA DEPARTMENT Provider, Generic External Data 08/04/2024 11:00 AM EST Office Visit [facility] [address] [place] [address] Wilman Boston, COLEMAN Secondary dental caries associated with failed or defective dental christian (Primary Dx) 08/04/2024 9:00 AM EST Telemedicine [facility] [address] [place], [place] [phone] Kenyatta Perdomo MD Mild persistent allergic asthma (Primary Dx); Dietary counseling; Exercise counseling; Stricture of female urethra, unspecified stricture type; Obesity (BMI 35.0-39.9 without comorbidity); Depressive disorder 08/04/2024 Orders Only [facility] [address] [place] [address] Provider, MD Milli 08/04/2024 Travel 07/09/2024 Orders Only [facility] [address] [place], [place] [phone] Sepideh Reynoso FNP 07/09/2024 Orders Only [facility] [address] [place] [phone] Kenyatta Perdomo MD 07/07/2024 Telephone [facility] [address] [place] [phone] Kenyatta Perdomo MD Medication Question from Last 3 Months Immunizations Name Administration Dates Next Due DTP 02/06/1998, 7,11/06/1996,09/06,12/06/1990 HPV, Quadrivalent 10/23/2007,03/23/2007,01/22/20 07 Hep B, Adolescent or Pediatric 10/31/1998,1997,04/08/1998 Hib (HbOC) 04/08/1999 IPV 02/06/1998, 7,11/06/1996,09/06,12/06/1990 Influenza Whole 04/26/2008 Influenza injectable quadriv alent preservative free 03/08/2020,05/19/2018 Influenza, IIV3, injectable 04/16/2016, 4 Influenza, seasonal, injecta ble, preservative free 09/02/2024 MMR 04/08/1998,08/24/1987 Meningococcal MCV4P ACYW-135 01/21/2007 Pneumococcal Conjugate PCV 20 09/02/2024 Td (adult), 5 Lf tetanus tox oid, preservative free, adsorbed 10/31/1998 Tdap 11/07/2014,11/16/2013,01/21/2007 Social History Tobacco Use Types Packs/Day Years Used Date Smoking Tobacco: Never Passive Smoke Exposure: Never Smokeless Tobacco: Never Tobacco Cessation:Counseling Given: Not Answered Alcohol Use Standard Drinks/Week Comments Defer 0 [...] Orientation Straight 04/08/2022 10 :19 AM EDT Last Filed Vital Signs Vital Sign Reading Time Taken Comments Blood Pressure 132/78 09/08/2024 8:39 AM EDT Pulse 98 09/01/2024 9:14 AM EDT Temperature 36.7 ??C (98 ??F) 09/01/2024 9:14 AM EDT Respiratory Rate 20 09/01/2024 9:14 AM EDT Oxygen Saturation 98% 09/01/2024 9:14 AM EDT Inhaled Oxygen Concentration - - Weight 86.6 kg (191 lb) 09/01/2024 9:14 AM EDT Height 152.4 cm (5') 09/01/2024 9:14 AM EDT Body Mass Index 37.3 09/01/2024 9:14 AM EDT Plan of Treatment Upcoming Encounters Date Type Department Care Team (Late st Contact Info) Description 10/18/2024 10:00 AM EDT Office Visit [facility] [address] [place] [address] Sunshine Segovia 10/26/2024 9:00 AM EDT Office Visit [facility] [address] [place] [address] Wilman Boston DMD [address] [place] [address] 11/03/2024 9:15 AM EDT Office Visit [facility] [address] [place] [address] Kenyatta Perdomo MD [address] [place] [address] Health Maintenance Due Date Last Done Comments Lipid Panel 1986 Alcohol/Substance Use Screening 1998 Hepatitis B Vaccines (3 of 3 - 3-dose series) 12/26/1998 10/31/1998, 05/01/1998, 04/08/1998 Family Planning (PISQ) 2001 COVID-19 Vaccine ( season) 2024 09/30/2020 Dental Oral Exam 10/13/2024 04/14/2024, 01/14/2023 Dental Prophylaxis 10/13/2024 04/14/2024, 0 09/16/2023, 01/14/2023 DTaP/Tdap/Td Vaccines (8 - Td or Tdap) 11/07/2024 11/07/2014, 11/16/2013, 01/21/2007, Additional history exists Depression Screening 01/15/2025 01/16/2024, 01/16/20 Dental X-Ray: Bitewings 04/15/2025 04/14/20 24, 09/02/2023, 01/14/2023 SDOH Screening 08/23/2025 08/23/2024 Tobacco Screening 09/28/2025 09/28/2024 Dental X-Ray: Full Mouth 04/15/2027 04/14/2024 Cervical Cancer Screening 01/16/2028 HPV/Cotest 01/16/2028 01/15/2023 Pap Smear 01/16/2028 01/15/2023 Zoster Vaccines (1 of 2) 2036 RSV Patients and Patients Aged 60 years or older (1 - 1-dose 75+ series) 2061 IPV Vaccines Completed 02/06/1998, 01/09, 11/06/1996, Additional history exists HIB Vaccines Aged Out 04/08/1999 No longer eligi ble based on patient's age to complete this topic Meningococcal Vaccine Aged Out 01/21/2007 No sarah cristopher eligible based on patient's age to complete this topic HPV Vaccines Completed 10/23/2007, 03/09, 01/21/2007 HIV Screening Completed 01/16/2024, 01/08/2021 Hepatitis C Screening Completed 01/16/2024 Influenza Vaccine Completed 09/02/2024, , 05/19/2018, Additional history exists Pneumococcal Vaccine: Pediatrics (0 to 5 Years) and At-Risk Patients (6 to 49) Years) Completed 09/02/2024 Hepatitis A Vaccines Aged Out No long er eligible based on patient's age to complete this topic RSV under 20 months Aged Out No longe r eligible based on patient's age to complete this topic Rotavirus Vaccines Aged Out No longer eligible based on patient's age to complete this topic Procedures Procedure Name Priority Date/Time Associated Diagnosis Comments 20 CROWN - PORCELAIN/CERAMIC Routine 09/28/2024 8:00 AM EDT Full coverage crown needed for root canal-treated tooth 20 CROWN PREP Routine 09/08/2024 8:30 AM EDT 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 FL GUIDANCE IN OR Routine 08/20/2024 6:0 0 PM EDT VENOUS BLOOD GAS Routine 08/19/2024 10:[address] ABDOMEN PELVIS WO CONTRAST Routine 08/19/2024 5:14 AM EDT CBC WITH AUTO DIFFERENTIAL Routine 08/19/2024 3:25 AM EDT HOLD GREEN GEL Routine 08/19/2024 3:18 AM EDT HCG, TOTAL, QN Routine 08/19/2024 3:18 AM EDT LIPASE Routine 08/19/2024 3:18 AM EDT HEPATIC FUNCTION PANEL Routine 08/19/2024 3:18 AM EDT COMPREHENSIVE METABOLIC PANEL Routine 08/19/2024 3:18 AM EDT URINALYSIS, COMPLETE, WITH REFLEX TO CULTURE Routine 08/19/2024 3:17 AM EDT CASE PRESENTATION, DETAILED AND EXTENSIVE TREATMENT PLANNING Routine 08/04/2024 11:00 AM EST Secondary dental caries associated with failed or defective dental christian 18 MOD RESIN-BASED COMPOSITE - 3 SURF, POSTERIOR Routine 08/04/2024 11:00 AM EST Secondary dental caries associated with failed or defective dental christian XR CHEST 2 VIEWS Routine 08/03/2024 9:11 AM EST PROPHYLAXIS - ADULT Routine 04/14/2024 9 :00 AM EST Secondary dental caries associated with failed or defective dental christian Bruxism INTRAORAL - COMPLETE SERIES OF RADIOGRAPHIC IMAGES Routine 04/14/2024 9:00 AM EST Secondary dental caries associated with failed or defective dental christian Bruxism PERIODIC ORAL EVALUATION - ESTABLISHED PATIENT Routine 04/14/2024 9:00 AM EST Secondary dental caries associated with failed or defective dental christian Bruxism HEPATITIS C AB W/REFL TO HCV RNA, QN, PCR Routine 01/16/2024 10:36 AM EDT Rash HIV 1/2 ANTIGEN/ANTIBODY, FOURTH GENERATION W/RFL Routine 01/16/2024 10:36 AM EDT Rash HM PAP/HPV Routine 01/15/2023 from Last 3 Months or Most Recently Relevant to Health Maintenance Results * FL Guidance in OR (08/20/2024 6:00 PM EDT) Anatomical Region Laterality Modality X-Ray Angiograph y 08/20/2024 6:00 PM EDT Narrative 08/23/2024 7:19 AM EDT ? [facility] ?[address] ?[place] [address] ? Fluoroscopy Report ? Signed ? Patient: Bhakti WinstonNailyn M ?M ?? R#: [id number] ? : 1985 ?Acct:[id number] ? Age/Sex: 39 / F ?ADM Date: 08/19/24 ? Loc: HO.S3 ?345-1 ? Attending Dr: Marlo Hutchison MD ? Ordering Physician: Va Crenshaw MD ?? Date of Service: 08/20/24 ?? Procedure(s): FL guidance in OR ?? Accession Number(s): [id number] ? cc: Va Crenshaw MD; Kenyatta Perdomo MD ? EXAMINATION: ??FL GUIDANCE ONLY ? HISTORY: cysto, ureteroscopy, retro, laser Right ? COMPARISON: ?? Correlation is made with a CT of the abdomen and pelvis without ?? contrast dated 08/19/2024. ? TECHNIQUE: ?? Fluoroscopy time: 33 seconds. ?? Cumulative Dose: 7.94 mGy. ?? Images: 6. ? FINDINGS: ?? Images demonstrate placement of a right nephroureteral stent. ? FL/FL guidance in OR ?? IMPRESSION: ?? Fluoroscopy during procedure. Please see procedure report for ?? additional information. ? Electronically signed by: ??Ramakrishna Mari MD ??08/23/2024 07:16 AM EDT ?? RP ? Dictated By: ?Ramakrishna Mari MD ? Signed By: ?<Electronically signed by Ramakrishna Mari MD in OV> ?08/23/2416 ? DD/ 1800 ? TD/TT: 08/20/241904 ? Physiognomist: ? Procedure Note Donotmonikainterpreter, Image - 08/23/[address] [address] Fluoroscopy Report Signed Patient: Edmond Lara MM R#: [id number] : 1985Acct:[id number] Age/Sex: 39 / FADM Date: 08/19/24 Loc: .S3 345-[address]: Marlo Hutchison MD Ordering Physician: Va Crenshaw MD Date of Service: 08/20/24 Procedure(s): FL guidance in OR Accession Number(s): [id number] cc: Va Crenshaw MD; Kenyatta Perdomo MD EXAMINATION: FL GUIDANCE ONLY HISTORY: cysto, ureteroscopy, retro, laser Right COMPARISON: Correlation is made with a CT of the abdomen and pelvis without contrast dated 08/19/2024. TECHNIQUE: Fluoroscopy time: 33 seconds. Cumulative Dose: 7.94 mGy. Images: 6. FINDINGS: Images demonstrate placement of a right nephroureteral stent. FL/FL guidance in OR IMPRESSION: Fluoroscopy during procedure. Please see procedure report for additional information. Electronically signed by: Ramakrishna Mari MD 08/23/2024 07:16 AM EDT Dictated By: Ramakrishna Mari MD Signed By: <Electronically signed by Ramakrishna Mari MD in OV> 08/23/24 0716 DD/ 1800 TD/TT: 08/20/241904 Physiognomist: [facility] External Provider IMG IR PROCEDURES Final Result * (ABNORMAL) VENOUS BLOOD GAS (08/19/2024 10:15 AM EDT) VBG pH 7.33 7.32 - 7.43 [facility] Comment:METER #: [id number] additional_comment: CbRogalt VBG PCO2 40 mmHg [facility] Comment:METER #: [id number] additional_comment: CbRogalt VBG PO2 41 mmHg [facility] Comment:METER #: [id number] additional_comment: CbRogalt VBG Base Excess -3.7 mmol/L [facility] Comment:METER #: [id number] additional_comment: CbRogalt VBG HCO3 21(L) 22 - 26 mmol/L [facility] Comment:METER #: [id number] additional_comment: CbRogalt O2 Sat, Mk 70.0 % [facility] Comment:METER #: [id number] additional_comment: CbRogalt 08/19/2024 10:1 5 AM EDT 08/19/2024 10:19 AM EDT us Generic External Data Provider LAB BLOOD ORDERAB LES Final Result Performing Organization Address City/State[facility] Co de Phone Number [facility] [address] [place] [address] [phone] * CT Abdomen Pelvis w/o Contrast (08/19/2024 5:14 AM EDT) Anatomical Region Laterality Modality Body, Pelvis, Abdomen Computed T omography 08/19/2024 5:14 AM EDT Narrative 08/19/2024 5:15 AM EDT ? [facility] ?[address] ?[place] [address] ? CT Scan Report ? Signed ? Patient: Edmond Lara ?M ?? R#: [id number] ? : 1985 ?Acct:[id number] ? Age/Sex: 39 / F ?ADM Date: 03/13/25 ? Loc: HO.ED ? Attending Dr: ? Ordering Physician: Fawn Pitts MD ?? Date of Service: 08/19/24 ?? Procedure(s): CT abdomen pelvis wo IV con ?? Accession Number(s): [id number] ? cc: Kenyatta Perdomo MD; Fawn Pitts MD ? Report Number: ?? [id number]: Total DLP = ??698.00 mGy-cm ? CLINICAL HISTORY: R flank pain ? CT abdomen and pelvis without contrast ? Comparison: None ? Findings: ?? No consolidation or effusion. ? There is right-sided obstructive uropathy with mild hydroureteronephrosis ?? and an obstructing 3 mm calculus at the right ureterovesicular junction. ?? The rest of the solid organs are unremarkable. ?? No bowel obstruction, pneumoperitoneum, or pneumatosis. ? Postoperative changes are seen in the right lower quadrant related to ?? appendectomy. ?? The uterus is leiomyomatous. An IUD is present. ?? The bones are intact. ? IMPRESSION: ?? There is right-sided obstructive uropathy with mild hydroureteronephrosis ?? and an obstructing 3 mm calculus at the right ureterovesicular junction. ? This document has been electronically signed by: Mane Aiken MD on ?? 08/19/2024 05:14:03 ? Dictated By: ?Mane Aiken MD ? Signed By: ?<Electronically signed by Mane Aiken MD in OV> ? 08/19/24 0515 ? DD/ 3 ? TD/TT: 08/19/24513 ? Physiognomist: ? Procedure Note Dilma, Image - 08/19/[address] [place] [address] [address] Scan Report Signed Patient: Bhakti Edmond Winston MM R#: [id number] : 1985Acct:[id number] Age/Sex: 39 / FADM Date: 08/19/24 Loc: HO.ED Attending Dr: Ordering Physician: Fawn Pitts MD Date of Service: 08/19/24 Procedure(s): CT abdomen pelvis wo IV con Accession Number(s): [id number] cc: Kenyatta Perdomo MD; Fawn Pitts MD Report Number: [id number]: Total DLP = 698.00 mGy-cm CLINICAL HISTORY: R flank pain CT abdomen and pelvis without contrast Comparison: None Findings: No consolidation or effusion. There is right-sided obstructive uropathy with mild hydroureteronephrosis and an obstructing 3 mm calculus at the right ureterovesicular junction. The rest of the solid organs are unremarkable. No bowel obstruction, pneumoperitoneum, or pneumatosis. Postoperative changes are seen in the right lower quadrant related to appendectomy. The uterus is leiomyomatous. An IUD is present. The bones are intact. IMPRESSION: There is right-sided obstructive uropathy with mild hydroureteronephrosis and an obstructing 3 mm calculus at the right ureterovesicular junction. This document has been electronically signed by: Mane Aiken MD on 08/19/2024 05:14:03 Dictated By: Mane Aiken MD Signed By: <Electronically signed by Mane Aiken MD in OV> 08/19/2415 DD/ 3 TD/TT: 08/19/24513 Physiognomist: [facility] External Provider IMG CT PROCEDURES Edited Result - Final * (ABNORMAL) CBC auto differential (08/19/2024 3:25 AM EDT) White Blood Count 10.8 4.8 - 10.8 X10*3/uL [facility] Red Blood Count 5.08 4.20 - 5.50 X10*6/uL [facility] Hemoglobin 15.2 12.0 - 16.0 g/dl [facility] Hematocrit 43.3 37.0 - 47.0 % [facility] Mean Corpuscular Volume 85.2 80.0 - 98.0 fL [facility] Mean Corpuscular Hemoglobin 29.9 27.0 - 33.0 pg [facility] Mean Corpuscular HGB Conc 35.1(H) 31.0 - 35.0 g/dl [facility] Red Cell Distribution Width 13.5 11.0 - 16.0 % [facility] Platelet Count 353 160 - 400 X10*3/uL [facility] Mean Platelet Volume 10.6 9.4 - 12.3 fL [facility] Neutrophils Percent Auto 75.4(H) 45 - 73 % [facility] Imm Gran Pct Auto 0.4 0.0 - 0.4 % [facility] Lymphocytes Percent Auto 15.1(L) 20 - 40 % [facility] Monocytes Percent Auto 6.9 2 - 11 % [facility] Eosinophils Percent Auto 1.7 0 - 4 % [facility] Basophils Percent Auto 0.5 0 - 2 % [facility] NRBC Pct Auto 0.0 0.0 - 0.2 /100WBC [facility] Neutrophils Absolute Auto 8.1 2.0 - 8.3 x10*3/uL [facility] Imm Gran Abs Auto 0.04(H) 0.00 - 0.03 X10*3/uL [facility] Lymphocytes Absolute Auto 1.6 1.2 - 4.9 X10*3/uL [facility] Monocytes Absolute Auto 0.7 0.1 - 1.2 X10*3/uL [facility] Eosinophils Absolute Auto 0.2 0.0 - 0.4 X10*3/uL [facility] Basophils Absolute Auto 0.1 0.0 - 0.2 X10*3/uL [facility] NRBC Abs Auto 0.000 0.0 - 0.012 X10*3/uL [facility] 08/19/2024 3:25 AM EDT 08/19/2024 3:29 AM EDT us Generic External Data Provider LAB BLOOD ORDERAB LES Edited Result - Final [facility] [address] [place] [address] [phone] * Hold Green Gel (08/19/2024 3:18 AM EDT) Hold Green Gel See Note [facility] Comment:Specimen held untest ed for 24 hours; Call to requestChemistry testing. 08/19/2024 3:18 AM EDT 08/19/2024 3:36 AM EDT us Generic External Data Provider HISTORICAL/NON OR DERABLE LABS Final Result Performing Organization Address City/[facility]/ZIP Co de Phone Number [facility] [address] [place] [phone] * hCG, Total, Quantitative (08/19/2024 3:18 AM EDT) HCG Quantitative <2 mIU/mL [facility] Comment:Weeks post LMP Appro ximate hCG(Last Menstrual Period) Range (mIU/ml)3 - 4 weeks 9 - 1304 - 5 weeks 75 - 2,6005 - 6 weeks 850 - 20,8006 - 7 weeks 4000 - 100,2007 - 12 weeks 11,500 - 289,15437 - 16 weeks 18,300 - 137,93664 - 29 weeks (2nd trimester) 1,400 - 53,93214 - 41 weeks (3rd trimester) 940 - 60,000The Zhao B- hCG assay is used for the early detection ofpregnancy; it cannot be used to diagnose any conditionunrelated to . If a B-hCG level is not supportedby the clinical evidence, results should be confirmed by analternative method (qualitative urine hCG, for example). 08/19/2024 3:18 AM EDT 08/19/2024 3:22 AM EDT us Generic External Data Provider LAB BLOOD ORDERAB LES Final Result Performing Organization Address [facility]/ZIP Co de Phone Number [facility] [address] [place] [phone] * Lipase (08/19/2024 3:18 AM EDT) Lipase 25 8 - 78 U/L [facility] 08/19/2024 3:18 AM EDT 08/19/2024 3:22 AM EDT Generic External Data Provider LAB BLOOD ORDERAB LES Final Result Performing Organization Address City/[facility]/ZIP Co de Phone Number [facility] [address] [place] [phone] * Hepatic Function Panel (08/19/2024 3:18 AM EDT) Bilirubin, Direct 0.1 0.0 - 0.5 mg/dL [facility] 08/19/2024 3:18 AM EDT 08/19/2024 3:22 AM EDT us Generic External Data Provider LAB BLOOD ORDERAB LES Final Result [facility] [address] [place] [phone] * (ABNORMAL) Comprehensive Metabolic Panel (08/19/2024 3:18 AM EDT) Sodium 137 135 - 145 mmol/L [facility] Potassium 4.9 3.3 - 5.1 mmol/L [facility] Comment:Mild Hemolysis.Inter pret result with caution Chloride 114(H) 96 - 108 mmol/L [facility] Carbon Dioxide 13(L) 22 - 29 mmol/L [facility] Anion Gap 15 12 - 20 [facility] Urea Nitrogen (BUN) 13 9 - 16 mg/dL [facility] Creatinine, Serum 0.81 0.5 - 1.4 mg/dL [facility] Creatinine Clr Calc Pharmacy 91.8 [facility] Comment:Provided height and weight: 152.4 cm,86.183 kg.eGFR (calculated from the MDRD study equation) and eCrCl(calculated from the Cockcroft-Gault equation) are based ondifferent parameters and may not yield comparable results.If eCrCl result is absurd, please check patient'sheight/weight. Estimated Glomerular Filt Rate >60 [facility] Comment:Chronic Kidney Disea se: Estimated GFR < 60 mL/min/1.35x0Yeviny Kidney Disease: Estimated GFR < 15 mL/min/1.73m2 Glucose 103 60 - 115 mg/dL [facility] Calcium 9.2 8.4 - 10.2 mg/dL [facility] Bilirubin, Total 0.4 0.0 - 1.0 mg/dL [facility] Aspartate Amino Transferase 90(H) 5 - 31 U/L [facility] Comment:Mild Hemolysis.Inter pret result with caution Alanine Aminotransferase 198(H) 0 - 31 U/L [facility] Total Protein 8.3(H) 6.5 - 8.0 g/dL [facility] Comment:Mild Hemolysis.Inter pret result with caution Albumin Level 4.3 3.5 - 5.0 g/dL [facility] Alkaline Phosphatase 94 39 - 117 U/L [facility] 08/19/2024 3:18 AM EDT 08/19/2024 3:22 AM EDT us Generic External Data Provider LAB BLOOD ORDERAB LES Final Result [facility] [address] [place] [phone] * (ABNORMAL) Urinalysis, Complete, with Reflex to Culture (08/19/2024 3:17 AM EDT) Color Urine Yellow [facility] Appearance Urine Cloudy [facility] PH 6.0 5.0 - 9.0 [facility] Glucose Urine UA Negative Negative mg/dL [facility] Urine Blood Small (1+)(A) Negative [facility] Specific [place] - Urine 1.015 1.005 - 1.025 [facility] Urine Protein Negative Neg-Trace mg/dL [facility] Urine Ketones Negative Negative mg/dL [facility] Nitrite Urine Negative Negative [facility] Leukocyte Esterase Urine Trace(A) Negative [facility] RBC Urine 0-2 0 - 2 /HPF [facility] Urine WBC 0-5 0 - 5 /HPF [facility] Urine Squamous Epithelial Cell >20 0 - 2 /HPF [facility] Urine Bacteria 3+ None Seen [facility] Hyaline Casts, Urine 0-2 0 - 2 /LPF [facility] 08/19/2024 3:17 AM EDT 08/19/2024 3:22 AM EDT Narrative [facility] - 08/19/2024 3:34 AM EDT [id number], Clean Catch us Generic External Data Provider LAB URINE ORDERAB LES Final Result Performing Organization Address [facility] Co de Phone Number [facility] [address] [place] [phone] * XR Chest 2 Views (08/03/2024 9:11 AM EST) Anatomical Region Laterality Modality Chest Radiographic Maria ging us Historical Provider IMG XR PROCEDURES Final R esult * Hepatitis C Antibody with Reflex to HCV, RNA, Quantitative, Real-Time PCR (01/16/2024 10:36 AM EDT) Hepatitis C Antibody Nonreactive Nonreactive [facility] Comment:Antibodies to HCV no t detected; does not exclude early acuteHCV infection. Blood Venous blood specimen / Unknown 01/16/2024 10:36 AM EDT 01/16/2024 1:59 PM EDT us Kenyatta Perdomo MD LAB BLOOD ORDERABLES Final Re sult Performing Organization Address [facility] Co de Phone Number [facility] [address] [place] [phone] * HIV-1/2 Antigen and Antibodies, Fourth Generation, with Reflexes (01/16/2024 10:36 AM EDT) HIV AB/AG Nonreactive Nonreactive [facility] Comment:HIV-1 p24 Ag and/or HIV-1/HIV-2 Ab not detected.A test result that is nonreactive does not exclude thepossibility of exposure to or infection with HIV-1 and/orHIV-2. Nonreactive results in this assay for individualswith prior exposure to HIV-1 and/or HIV-2 may be due toantigen and antibody levels that are below the limit ofdetection of this assay.The [employer] HIV Ag/Ab Combo assay result andsupplemental assay results should be interpreted inconjunction with the patient's clinical presentation,history and other laboratory results. If the results areinconsistent with clinical evidence, additional testing issuggested to confirm the result. Blood Venous blood specimen / Unknown 01/16/2024 10:36 AM EDT 01/16/2024 1:59 PM EDT Kenyatta Perdomo MD LAB BLOOD ORDERABLES Final Re sult [facility] [address] [place] [phone] * Pap Smear (01/15/2023) Pap Negative for intraephithelial lesion or malignancy Negative for intraephithelial lesion or malignancy, Other HPV Undetected Undetected, Indeterminate, Quantitative, Not Detected Historical Provider HEALTH MAINTENANCE Final Result from Last 3 Months or Most Recently Relevant to Health Maintenance [place] [address] CARE < 65 [place] [phone] DENTAL - [facility] Care Teams Airplane Pilot Commercial Relationship Specialty Start Date End Date Kenyatta Perdomo MD [address] [place] [phone] PCP - General Family Medicine 06/09/18
--- OUTSIDE RECORDS SUMMARY | 2024-10-05 12:04 | XMS_ITS | Clinical Summary ---
Author Organization [facility] Address [address] [place] [address] Phone Care Team Providers Care Cleaner And Preparer Name Role Phone Kenyatta Perdomo MD Primary Care Provider Allergies Active Allergy Reactions Criticality Noted Date Comments Cefaclor 01/21/2023 Penicillin G 01/21/2023 Medications budesonide-form oteroL (SYMBICORT) 160-4.5 mcg/actuation inhaler Inhale 2 Puffs into the lungs 2 times daily. 3 inhalers & 3 refills 4 02/08/20 25 Active albuterol HFA (PROAIR HFA ; PROVENTIL HFA ; VENTOLIN HFA) 90 mcg/actuation inhaler Inhale 2 Puffs into the lungs every 6 hours as needed for Cough, Wheezing or Shortness of Breath. 3 inhalers & 3 refills 4 02/08/20 25 Active zolpidem (AMBIEN) 5 mg tablet Take by mouth at bedtime as needed. Active clonazePAM (KlonoPIN) 0.5 mg tablet Take 1 Tablet by mouth 2 times daily as needed. Active busPIRone (BUSPAR) 5 mg tablet Take 1 Tablet by mouth 3 times daily. Active ipratropium/alb uterol sulfate (IPRATROPIUM-AL BUTEROL INHL) Inhale into the lungs. Active Encounters Date Type Department Care Team Description 08/03/2024 11:05 AM EST - 08/03/2024 11:59 PM EST Hospital Encounter [facility] [address] [place] [address] Moderate persistent asthma, unspecified whether complicated; Chronic cough Discharge Disposition: Home or Self Care 08/03/[address] [phone] [place] 08/02/2024 8:45 AM EST Office Visit [address] [phone] Asia Oakes MD Moderate persistent asthma, unspecified whether complicated (Primary Dx); Chronic cough; Marijuana smoker; Occupational inhalation disease from Last 3 Months Social History Tobacco Use Types Packs/Day Years Used Date Smoking Tobacco: Never Passive Smoke Exposure: Never Smokeless Tobacco: Never Alcohol Use Standard Drinks/Week Comments Yes 0 (1 standard drink = 0.6 oz pur e alcohol) Comments Unknown Sex and Gender Information Value Date Recorded Sex Assigned at Not on file Legal Sex Female 1:09 PM EST Gender Identity Not on file Sexual Orientation Not on file Obstetrics History Last Filed Vital Signs Vital Sign Reading Time Taken Comments Blood Pressure 102/64 08/02/2024 8:56 AM EST Pulse 99 08/02/2024 8:56 AM EST Temperature 36.1 ??C (97 ??F) 08/02/2024 8:56 AM EST Respiratory Rate 16 08/02/2024 8:56 AM EST Oxygen Saturation 100% 08/02/2024 8:56 AM EST Inhaled Oxygen Concentration - - Weight 86.4 kg (190 lb 6.4 oz) 08/02/2024 8:56 A M EST Height 152.4 cm (5') 08/02/2024 8:56 AM EST Body Mass Index 37.18 08/02/2024 8:56 AM EST Plan of Treatment Upcoming Encounters Date Type Department Care Team (Late st Contact Info) Description 02/01/2025 9:45 AM EDT Office Visit [address] [phone] Asia Oakes MD [address] [address] Health Maintenance Due Date Last Done Comments Hepatitis B Vaccines (3 of 3 - 3-dose series) 12/26/1998 10/31/1998, 05/01/1998, 04/08/1998 Pneumococcal Vaccine: Pediatrics (0 to 5 Years) and At-Risk Patients (6 to 64 Years) (1 of 2 - PCV) 2005 Cervical Cancer Screening: Pap Smear 2007 Cholesterol Screening (Lipid Panel) 07/09/2023 Social Influencers of Health Screening 07/09/2023 COVID-19 Vaccine (2 - season) 2024 09/30/2020 DTaP,Tdap,and Td Vaccines (8 - Td or Tdap) 11/07/2024 11/07/2014, 11/16/2013, 01/21/2007, Additional history exists Depression Screening 01/15/2025 01/16/2024 Influenza Vaccine (Season Ended) 2025 03/08/2020, 05/19/2018, 04/16/2016, Additional history exists IPV Vaccines Completed 02/06/1998, 01/09, 11/06/1996, Additional history exists MMR Vaccines Completed 04/08/1998, 08/24/1987 HIB Vaccines Aged Out 04/08/1999 No longer eligi ble based on patient's age to complete this topic Meningococcal ACWY Vaccine Aged Out 01/21/2007 N o longer eligible based on patient's age to complete this topic HPV Vaccines Completed 10/23/2007, 03/09, 01/21/2007 HIV Screening Completed 01/16/2024 Hepatitis C Screening Completed 01/16/2024 Hepatitis A Vaccines Aged Out No long er eligible based on patient's age to complete this topic Meningococcal B Vaccine Aged Out No l onger eligible based on patient's age to complete this topic RSV Immunization Patients Under 20 months Aged Out No longer eligible based on patient's age to complete this topic Varicella Vaccines Aged Out No longer eligible based on patient's age to complete this topic Procedures Procedure Name Priority Date/Time Associated Diagnosis Comments XR CHEST 2 VIEWS Routine 08/03/2024 11:2 5 AM EST Moderate persistent asthma, unspecified whether complicated Chronic cough HCG QUALITATIVE, URINE Routine 08/02/2024 9:18 AM EST Moderate persistent asthma, unspecified whether complicated from Last 3 Months Results * XR Chest 2 Views (08/03/2024 11:25 AM EST) Anatomical Region Laterality Modality Body Radiographic Maria ging 08/03/2024 12:3 3 PM EST Impressions 08/03/2024 12:34 PM EST No acute pulmonary pathology. -------- FINAL REPORT -------- Dictated By: Debbie Camacho Dictated Date: 08/03/2024 12:33 ET Assigned Physician: Debbie Camacho Reviewed and Electronically Signed By: Debbie Camacho Signed Date: 08/03/2024 12:34 ET Workstation ID: [id number] Transcribed By: Self Edit Transcribed Date: 08/03/2024 12:33 ET Narrative 08/03/2024 12:34 PM EST CHEST, TWO VIEWS HISTORY: ?? Cough. TECHNIQUE: Frontal and lateral views of the chest. PRIOR: None. FINDINGS: The lungs are clear. No pleural effusion is seen. No pneumothorax is seen. The cardiac diameter is within normal limits. No acute or aggressive appearing bony abnormalities are seen. ?? There is a surgical clip in each breast. Procedure Note Debbie Camacho MD - 08/03/2024 CHEST, TWO VIEWS HISTORY: Cough. TECHNIQUE: Frontal and lateral views of the chest. PRIOR: None. FINDINGS: The lungs are clear. No pleural effusion is seen. No pneumothorax is seen. The cardiac diameter is within normal limits. No acute or aggressive appearing bony abnormalities are seen. There is a surgical clip in each breast. IMPRESSION: No acute pulmonary pathology. -------- FINAL REPORT -------- Dictated By: Debbie Camacho Dictated Date: 08/03/2024 12:33 ET Assigned Physician: Debbie Camacho Reviewed and Electronically Signed By: Debbie Camacho Signed Date: 08/03/2024 12:34 ET Workstation ID: [id number] Transcribed By: Self Edit Transcribed Date: 08/03/2024 12:33 ET Asia Oakes MD IMG XR PROCEDURES Final Result * HCG qualitative, urine (08/02/2024 9:18 AM EST) Preg Test, Ur Negative Negative 08/02/2024 3:23 PM EST [facility] Urine Urine specimen obtained by clean catch procedure / Unknown Non-blood Collection / Unknown 08/02/2024 9:18 AM EST 08/02/2024 9:18 AM EST us Asia Oakes MD LAB URINE ORDERABLES Final Resul t [facility] [address] [place] [address], from Last 3 Months Insurance [facility] Member Subscriber Plan / Payer (Ef fective 2013-Present) Name:Edmond Ya Relation to Subscriber:Self Name:Edmond Ya Payer ID:[id number] Group ID:[id number] Type:Not on file Address: [place] [address] [place] [phone] Care Teams Cleaner And Preparer Relationship Specialty Start Date End Date Kenyatta Perdomo MD [address] [place] [address] PCP - General 01/20/23
--- OUTSIDE RECORDS SUMMARY | 2024-10-05 12:04 | XMS_ITS | Encounter Summary ---
Author Organization [employer] Address [address] [facility] 7t [place] [address] Care Team Providers Care Mat Gauger Name Role Phone Kenyatta Perdomo MD Primary Care Provider [phone] Reason for Visit * Reason Onset Date Comments Medication Question 07/07/2024 Encounter Details Date Type Department Care Team ([facility] st Contact Info) Description 07/07/2024 Telephone [facility] [address] [place] [address] Kenyatta Perodmo MD [address] [place] [phone] Medication Question Social History Tobacco Use Types Packs/Day Years [...] AM EDT documented as of this encounter Miscellaneous Notes * Telephone Encounter - Santos Tee - 07/07/2024 11:26 AM EST TC from [facility] is looking for an alternative script for phentermine 8 MG tablet documented in this encounter Plan of Treatment Upcoming Encounters Date Type Department Care Team (Late st Contact Info) Description 10/18/2024 10:00 AM EDT Office Visit [facility] ADULT DENTAL [address] [place] [address] Sunshine Segovia 10/26/2024 9:00 AM EDT Office Visit [facility] ADULT DENTAL [address] [place] [address] Wilman Boston DMD [address] [place] [address] 11/03/2024 9:15 AM EDT Office Visit [facility] MED & PEDS [address] [place] [address] Kenyatta Perdomo MD [address] [place] [address] documented as of this encounter Visit Diagnoses Not on filedocumented in this encounter Additional Health Concerns Assessment Noted Time PHQ-9 Depression Total Score: 9 01/16/20 24 9:46 AM EDT documented as of this encounter Care Teams Mat Gauger Relationship Specialty Start Date End Date Kenyatta Perdomo MD [address] [place] [address] PCP - General Family Medicine 06/09/18 documented as of this encounter
--- OUTSIDE RECORDS SUMMARY | 2024-10-05 12:04 | XMS_ITS | Encounter Summary ---
Author Organization [employer] Address 75 [facility] 7t [place] [address] Care Team Providers Care Starting Sheet Tank Operator Name Role Phone Kenyatta Perdomo MD Primary Care Provider Reason for Visit * Reason Comments Med Change Request Encounter Details Date Type Department Care Team ([facility] Contact Info) Description 01/16/2024 Refill [facility] MED & PEDS [address] [place], [place] [phone] Kenyatta Perdomo MD [address] [place] [address] Social History Tobacco Use Types Packs/Day Years Used Date Smoking Tobacco: Never Passive Smoke Exposure: Never Smokeless Tobacco: Never Depression Answer Date Recorded Patient Health Questionnaire-9 [...] Recorded Patient Health Questionnaire-2 Score 2 01/16/2024 Comments Unknown Sex and Gender Information Value [...] Description 10/18/2024 10:00 AM EDT Office Visit [facility] ADULT DENTAL [address] [place] [address] Sunshine Segovia 10/26/2024 9:00 AM EDT Office Visit [facility] ADULT DENTAL [address] [place] [address] Wilman Boston DMD [address] [place] [address] 11/03/2024 9:15 AM EDT Office Visit [facility] MED & PEDS [address] [place] [address] Kenyatta Perdomo MD [address] [place] [address] documented as of this encounter Visit Diagnoses Not on filedocumented in this encounter Additional Health Concerns Assessment Noted Time PHQ-9 Depression Total Score: 9 01/16/20 24 9:46 AM EDT documented as of this encounter Care Teams Starting Sheet Tank Operator Relationship Specialty Start Date End Date Kenyatta Perdomo MD [address] [place] [address] PCP - General Family Medicine 06/09/18 documented as of this encounter
--- OUTSIDE RECORDS SUMMARY | 2024-10-05 12:04 | XMS_ITS | Encounter Summary ---
Author Organization [facility] Address [address] [place] [address] Phone Care Team Providers Care Pan Shaker Name Role Phone Unavailable Primary Care Provider Unavailabl e Encounter Details Date Type Department Care Team (Late st Contact Info) Description 01/23/2017 Conversion Encounter [facility] - [address] [address] Social History Tobacco Use Types Packs/Day Years Used Date Smoking Tobacco: Never Assessed Comments Unknown Sex and Gender Information Value Date Recorded Sex Assigned at Not on file Legal Sex Female 4:25 PM EDT Gender Identity Not on file Sexual Orientation Not on file documented as of this encounter Plan of Treatment Not on file documented as of this encounter Visit Diagnoses Not on filedocumented in this encounter
--- OUTSIDE RECORDS SUMMARY | 2024-10-05 12:04 | XMS_ITS | Encounter Summary ---
Author Organization [employer] Address 75 [facility] 7t [place] [address] Care Team Providers Care Boat Worker Name Role Phone Kenyatta Perdomo MD Primary Care Provider [phone] Encounter Details Date Type Department Care Team (Latest Contact Info) Description 11/24/2018 Abstract [facility] Dental, Provider, DDS Social History [...] Description 10/18/2024 10:00 AM EDT Office Visit [facility] ADULT DENTAL [address] [place] [address] Sunshine Segovia 10/26/2024 9:00 AM EDT Office Visit [facility] ADULT DENTAL [address] [place] [address] Wilman Boston DMD [address] [place] [address] 11/03/2024 9:15 AM EDT Office Visit [facility] MED & PEDS [address] [place] [address] Kenyatta Perdomo MD [address] [place] [address] documented as of this encounter Visit Diagnoses Not on filedocumented in this encounter Care Teams Boat Worker Relationship Specialty Start Date End Date Kenyatta Perdomo MD [address] [place] [address] PCP - General Family Medicine 06/09/18 documented as of this encounter
--- OUTSIDE RECORDS SUMMARY | 2024-10-05 12:04 | XMS_ITS | Encounter Summary ---
Author Organization [employer] Address 75 [facility] 7t [place] [address] Care Team Providers Care Computer Systems Software Architect Name Role Phone Kenyatta Perdomo MD Primary Care Provider [phone] Reason for Visit * Reason Comments Med Refill Encounter Details Date Type Department Care Team ([facility] Contact Info) Description 10/03/2024 Refill [facility] MED & PEDS [address] [place], [place] [phone] Kenyatta Perdomo MD [address] [place] [address] Social History Tobacco Use Types Packs/Day Years [...] Description 10/18/2024 10:00 AM EDT Office Visit [facility] ADULT DENTAL [address] [place] [address] Sunshine Segovia 10/26/2024 9:00 AM EDT Office Visit [facility] ADULT DENTAL [address] [place] [address] Wilman Boston DMD [address] [place] [address] 11/03/2024 9:15 AM EDT Office Visit [facility] MED & PEDS [address] [place] [address] Kenyatta Perdomo MD [address] [place] [address] documented as of this encounter Visit Diagnoses Not on filedocumented in this encounter Additional Health Concerns Assessment Noted Time PHQ-9 Depression Total Score: 9 01/16/20 24 9:46 AM EDT documented as of this encounter Care Teams Computer Systems Software Architect Relationship Specialty Start Date End Date Kenyatta Perdomo MD [address] [place] [address] PCP - General Family Medicine 06/09/18 documented as of this encounter
--- OUTSIDE RECORDS SUMMARY | 2024-10-05 12:04 | XMS_ITS | Encounter Summary ---
Author Organization [employer] Address 75 [facility] 7 [place] [address] Care Team Providers Care Ball Holder Name Role Phone Kenyatta Perdomo MD Primary Care Provider [phone] Reason for Visit * Reason Onset Date Comments Hospital Follow-up 08/23/2024 Encounter Details Date Type Department Care Team ([facility] st Contact Info) Description 08/23/2024 Telephone [facility] MED & PEDS [address] [place], [place] [phone] Kenyatta Perdomo MD [address] [place] [address] Hospital Follow-up Social History Tobacco Use Types Packs/Day Years [...] your housing situation today? I have bob sing 01/16/[address] you li [...] encounter Miscellaneous Notes * Telephone Encounter - Kelly Champagne - 08/23/2024 10:08 AM EDT Tc from pt requesting a HDF appt. [facility] [facility] Date of admission: 08/19/24 Discharge date: 08/21/24 Diagnosed: Kidney stones *Send message to [facility] Care Coordinators Contact pt at [phone] documented in this encounter Plan of Treatment Upcoming Encounters Date Type Department Care Team ([facility] st Contact Info) Description 10/18/2024 10:00 AM EDT Office Visit [facility] ADULT DENTAL [address] [place] [address] Sunshine Segovia 10/26/2024 9:00 AM EDT Office Visit [facility] ADULT DENTAL [address] [place] [address] Wilman Boston DMD [address] [place] [address] 11/03/2024 9:15 AM EDT Office Visit [facility] MED & PEDS [address] [place] [address] Kenyatta Perdomo MD [address] [place] [address] documented as of this encounter Visit Diagnoses Not on filedocumented in this encounter Additional Health Concerns Assessment Noted Time PHQ-9 Depression Total Score: 9 01/16/20 24 9:46 AM EDT documented as of this encounter Care Teams Ball Holder Relationship Specialty Start Date End Date Kenyatta Perdomo MD [address] [place] [address] PCP - General Family Medicine 06/09/18 documented as of this encounter
== END 2024-10-05 11:08 | disposition home or self-care (01) ==
LOC: HO.HUSH 10:25
PROVIDERS: PCP Pediatrics; Visit Provider Nurse Practitioner Family
DX: N20.1 Calculus of ureter (principal); N20.0 Calculus of kidney; N35.92 Unspecified urethral stricture, female; Z87.448 Personal history of other diseases of urinary system; R10.9 Unspecified abdominal pain
CPT/HCPCS: 99213

== ENCOUNTER → 2024-10-05 10:24 | Outpatient (BNVA) | payer OTHER, SELFPAY | PROVIDERS: PCP Pediatrics; Visit Provider Nurse Practitioner Family | DX: N20.1 Calculus of ureter (principal); N20.0 Calculus of kidney; N35.92 Unspecified urethral stricture, female; R10.9 Unspecified abdominal pain; Z87.448 Personal history of other diseases of urinary system | CPT/HCPCS: 99212 ==

== ENCOUNTER 2024-12-06 13:15 | Outpatient (REF) | payer OTHER, SELFPAY ==
--- OUTSIDE RECORDS SUMMARY | 2024-12-06 13:43 | XMS_ITS | Encounter Summary ---
Author Organization [employer] Address 75 [facility] 7t [place] [address] Care Team Providers Care Malt Specifications Control Assistant Name Role Phone Kenyatta Perdomo MD Primary Care Provider [phone] Reason for Visit * Reason Comments Med Refill Encounter Details Date Type Department Care Team ([facility] st Contact Info) Description 10/03/2024 Refill [facility] MED & PEDS [address] [place], [place] [phone] Kenyatta Perdomo MD [address] [place] [address] Social History Tobacco Use Types Packs/Day Years [...] Care Team (Late st Contact Info) Description 01/27/2025 9:15 AM EDT Office Visit [facility] MED & PEDS [address] [place] [address] Kenyatta Perdomo MD [address] [place] [address] 04/22/2025 10:00 AM EST Office Visit [facility] ADULT DENTAL [address] [place] [address] Sunshine Segovia documented as of this encounter Visit Diagnoses Not on filedocumented in this encounter Additional Health Concerns Assessment Noted Time PHQ-9 Depression Total Score: 9 01/16/20 24 9:46 AM EDT documented as of this encounter Care Teams Malt Specifications Control Assistant Relationship Specialty Start Date End Date Kenyatta Perdomo MD [address] [place] [address] PCP - General Family Medicine 06/09/18 documented as of this encounter
--- OUTSIDE RECORDS SUMMARY | 2024-12-06 13:43 | XMS_ITS | Clinical Summary ---
Author Organization [address] [facility] Address [address] [place] [address] Phone Care Team Providers Care Wood Processing Worker Name Role Phone Kenyatta Perdomo MD Primary Care Provider [phone] Allergies Active Allergy Reactions Criticality Noted Date [...] BUTEROL INHL) Inhale into the lungs. Active Social History Tobacco Use Types Packs/Day Years [...] 99 08/02/2024 8:56 AM EST Temperature 36.1 C (97 F) 08/02/2024 8:56 AM EST Respiratory Rate 16 [...] Description 02/01/2025 9:45 AM EDT Office Visit [facility] [place] [address] [phone] Asia Oakes MD [address] [address] Health Maintenance Due Date Last Done Comments [...] on patient's age to complete this topic Insurance [facility] Member Subscriber Plan / Payer (Ef fective 2013-Present) Name:Edmond Ya Relation to Subscriber:Self Name:Edmond Ya Payer ID:[id number] Group ID:[id number] Type:Not on file Address: [place] [facility] [place] [phone] Care Teams Wood Processing Worker Relationship Specialty Start Date End Date Kenyatta Perdomo MD [address] [place] [phone] PCP - General 01/20/23
--- OUTSIDE RECORDS SUMMARY | 2024-12-06 13:43 | XMS_ITS | Clinical Summary ---
Author Organization [facility] Address [address] [place] [address] Phone Care Team Providers Care Solution Strategist Name Role Phone Unavailable Primary Care Provider [...] es Paternal Grandmother Paterna l grandmother: Sudden /[place] under age 55, Diabetes mellitus, Sister Alive [...]
== END 2024-12-06 13:16 | disposition home or self-care (01) ==
LOC: HO.HHCLNP 13:15
PROVIDERS: Visit Provider Family Medicine
DX: R39.9 Unspecified symptoms and signs involving the genitourinary system (principal)
CPT/HCPCS: 87086

== ENCOUNTER 2024-12-17 08:38 | Outpatient (AMB) | payer OTHER, SELFPAY ==
--- OUTSIDE RECORDS SUMMARY | 2024-12-17 08:44 | XMS_ITS | Encounter Summary ---
Author Organization [employer] Address [address] [facility] 7t [place] [address] Care Team Providers Care Biochemistry Technologist Name Role Phone Kenyatta Perdomo MD Primary Care Provider [phone] Reason for Visit * Reason Comments Med Refill Encounter Details Date Type Department Care Team ([facility] st Contact Info) Description 10/03/2024 Refill [facility] MED & PEDS [address] [place], [place] [phone] Kenyatta Perdomo MD [address] [place] [address] Social History Tobacco Use Types Packs/Day Years [...] Description 01/27/2025 9:15 AM EDT Office Visit [facility] MED & PEDS [address] [place] [address] Kenyatta Perdomo MD [address] [place] [address] 04/22/2025 10:00 AM EST Office Visit [facility] ADULT DENTAL [address] [place] [address] Sunshine Segovia documented as of this encounter Visit Diagnoses Not on filedocumented in this encounter Additional Health Concerns Assessment Noted Time PHQ-9 Depression Total Score: 9 01/16/20 24 9:46 AM EDT documented as of this encounter Care Teams Biochemistry Technologist Relationship Specialty Start Date End Date Kenyatta Perdomo MD [address] [place] [address] PCP - General Family Medicine 06/09/18 documented as of this encounter
--- OUTSIDE RECORDS SUMMARY | 2024-12-17 08:44 | XMS_ITS | Clinical Summary ---
Author Organization [facility] Address [address] [place] [address] Phone Care Team Providers Care Inspector Plumbing Name Role Phone Unavailable Primary Care Provider [...] es Paternal Grandmother Paterna l grandmother: Sudden /[place] under age 55, Diabetes mellitus, Sister Alive [...] 01/21/2017 01/21/2007, 10/31/1998, 02/06/1998, Additional history exists COVID-19 Vaccine (2023- season) 2024 Influenza Vaccines (#1) 2025 IPV Vaccines Completed 02/06/1998, 01/09, 11/06/1996, Additional [...]
--- OUTSIDE RECORDS SUMMARY | 2024-12-17 08:44 | XMS_ITS | Clinical Summary ---
Author Organization 175 [facility] Address 175 [place] [address] Phone Care Team Providers Care Sheeter Waxer Operator Name Role Phone Kenyatta Perdomo MD Primary Care Provider [phone] Allergies Active Allergy Reactions Criticality Noted Date [...] 9:45 AM EDT Office Visit Pulmonolgy - [place] [address] [phone] Asia Oakes MD [address] [address] Health Maintenance Due Date Last Done Comments Hepatitis B Vaccines (3 of 3 - 3-dose series) 12/26/1998 10/31/1998, 05/01/1998, 04/08/1998 Pneumococcal Vaccine: Pediatrics (0 to 5 Years) and At-Risk Patients (6 to 49 Years) (1 of 2 - PCV) 2005 Cervical Cancer Screening: Pap Smear 2007 Cholesterol Screening (Lipid Panel) 07/09/2023 Social Influencers of Health Screening 07/09/2023 COVID-19 Vaccine (2 - season) 2024 09/30/2020 DTaP,Tdap,and Td Vaccines (8 - Td or Tdap) 11/07/2024 11/07/2014, 11/16/2013, 01/21/2007, Additional history exists Depression Screening 01/15/2025 01/16/2024 Influenza Vaccine (#1) 2025 0, 05/19/2018, 04/16/2016, Additional history exists IPV Vaccines [...] patient's age to complete this topic Insurance [facility] Member Subscriber Plan / Payer (Ef fective 2013-Present) Name:Edmond Ya Relation to Subscriber:Self Name:Edmond Ya Payer ID:[id number] Group ID:[id number] Type:Not on file Address: [place] [address] [place] [phone] Care Teams Sheeter Waxer Operator Relationship Specialty Start Date End Date Kenyatta Perdomo MD [address] [place] [address] PCP - General 01/20/23
--- NOTE | 2024-12-17 08:52 | A.OFFVIS_ITS ---
Intake Visit Reasons: DILATION/CATHETER Intake Note: Patient is present for DILATION/CATHETER Urology Medication:LIDOCAINE,TAMSULOSIN Antibiotic Allergy:PENICILLINS Blood Thinner:NONE Lip Cutter And Scorer Required: No Allergies Cephalosporins Allergy (Severe, Verified 01/05/25 13:24) Angioedema cefaclor (From CECLOR) Allergy (Unknown, Verified 01/05/25 13:24) ANGIOEDEMA Penicillins (PENICILLINS) Allergy (Unknown, Verified 01/05/25 13:24) HIVES HPI Comments Details: Edmond is a pleasant female. She is a patient of Dr. Pulido. She is seen for the following urologic conditions - nephrolithiasis - urethral stricture Last seen in December Had stent removed at follow-up appointment Recovered from stone episode Able to urinate No stone composition noted Keep follow-up appointment PFSH Medical History Incomplete bladder emptying Social History Household Members: Significant Other Housing: Apartment Do you presently have visiting nurse or other home services: No Patient Tobacco Use Status: Never used Tobacco service: No Review of Systems Const Denies chills and Denies fever(s) Card Reports no additional complaints and Denies syncope Resp Denies cough GI Denies abdominal pain and Denies heartburn Reports as per HPI and Denies change in libido Neuro Denies syncope Psych Denies change in libido Endo Denies change in libido Physical Exam Const General: cooperative, healthy appearing, comfortable and no acute distress Orientation/consciousness: patient oriented x3 HEENT Face and sinus: Yes normal facial exam Mouth: moist mucous membranes Neck Neck: Yes normal visual inspection, Yes full ROM and Yes trachea midline Chest Chest palpation & inspection: normal inspection of the chest Resp Effort & Inspection: normal respiratory effort, able to speak in complete sentences and no respiratory distress GI Inspection: Yes normal to inspection Back/Spine/Pelvis Cervical Spine: normal cervical lordosis Thoracic/Lumbar Spine: thoracic and lumbar spine normal to inspection Skin General skin exam: no rashes or lesions noted Neuro General: patient oriented x3, gait normal, tone normal and moves all extremities Extrem General: Yes normal to inspection and Yes capillary refill normal Office Procedures Bladder/Catheter Procedure Details: 18 fr 20ml catheter with blue cap inserted, patient tolerated well. Patient will remove catheter at home and call office with how she is doing after vacation trip. Patient agreeable with plan. Patient to keep follow up with Gali BUSTAMANTE as scheduled [id number] Temporary Bladder Catheter Procedure code (CPT) selection complete Assessment & Plan Assessment & Plan (1) Dysuria: Code(s): R30.0 - Dysuria Category: Medical Plan Keep follow-up Orders: Orders AMB Bladder/Catheter Procedure 12/17/24 N35.92 - Unspecified urethral stricture, female Patient Instructions: This note is constructed using voice recognition software. While every effort has been made to ensure accuracy middle school teacher errors may have been included. Imaging studies, laboratory and physical exam results were discussed and reviewed in detail. No major barriers to patient understanding were identified. An opportunity to ask questions regarding the treatment plan was provided. All questions were answered. The patient expressed understanding and agreement with the above treatment plan. The patient is aware they should contact our office by phone for worsening of their current condition or the appearance of new urologic symptoms. Compliance is encouraged with any medications and followup testing that is ordered. It is a privilege to participate in the urologic care of your patient. If you have any questions or concerns regarding treatment for the above conditions, or other urologic issues, please do not hesitate to contact me. The office telephone contact is [phone]. Sincerely, Dr Kvng Cagle MD, BESS[facility] - Urology Compassionate Specialist Care for the Genitourinary System Coding Level of Care Code Est Pt Level 3 ([address]) Diagnoses Dysuria R30.0 CPT Codes Bladder/Catheter Procedure - CPT: 96611-[id number] Temporary Bladder Catheter ([id number])
== END 2024-12-17 09:14 | disposition home or self-care (01) ==
LOC: HO.HUSH 08:38
PROVIDERS: PCP Pediatrics; Visit Provider Urology
DX: N35.92 Unspecified urethral stricture, female (principal)
CPT/HCPCS: 51702

== ENCOUNTER → 2024-12-17 08:38 | Outpatient (BNVA) | payer OTHER, SELFPAY | PROVIDERS: PCP Pediatrics; Visit Provider Urology | DX: R30.0 Dysuria (principal); R33.9 Retention of urine, unspecified; N35.92 Unspecified urethral stricture, female | CPT/HCPCS: 51702; 99212 ==

== ENCOUNTER 2024-12-28 11:17 | Outpatient (REF) | payer OTHER, SELFPAY ==
--- NOTE | ~2024-12-28 | US_ITS ---
CLINICAL HISTORY: N20.1 - Calculus of ureter US Renal Comparison: None provided Findings: Right kidney normal size and echotexture, 11.0 cm length. Left kidney normal size and echotexture, 10.6 cm length. Extrarenal pelvis bilaterally. No findings of hydronephrosis. Normal color Doppler. Urinary bladder is unremarkable. Prevoid volume 130 mL. Postvoid volume 10.1 mL. Bilateral ureteral jets are visualized. IMPRESSION: 1. No hydronephrosis. No significant residual within the bladder. This document has been electronically signed by: Melissa Chan MD on 12/29/2024 11:07:22
--- OUTSIDE RECORDS SUMMARY | 2024-12-28 12:32 | XMS_ITS | Clinical Summary ---
Author Organization [facility] Address [address] [place] [address] Phone Care Team Providers Care Patrol Supervisor Name Role Phone Unavailable Primary Care Provider [...] es Paternal Grandmother Paterna l grandmother: Sudden /[place] under age 55, Diabetes mellitus, Sister Alive [...]
--- OUTSIDE RECORDS SUMMARY | 2024-12-28 12:32 | XMS_ITS | Encounter Summary ---
Author Organization [employer] Address [address] [facility] 7t [place] [address] Care Team Providers Care Crayon Grader Name Role Phone Kenyatta Perdomo MD Primary Care Provider [phone] Reason for Visit * Reason Comments Med Refill Encounter Details Date Type Department Care Team ([facility] st Contact Info) Description 10/03/2024 Refill [facility] MED & PEDS [address] [place], [place] [phone] Kenyatta Perdomo MD [address] [place] [address] Social History Tobacco Use Types Packs/Day Years [...] Description 01/27/2025 9:15 AM EDT Office Visit [facility] MED & PEDS [address] [place] [address] Kenyatta Perdomo MD [address] [place] [address] 04/22/2025 10:00 AM EST Office Visit [facility] ADULT DENTAL [address] [place] [address] Sunshine Segovia documented as of this encounter Visit Diagnoses Not on filedocumented in this encounter Additional Health Concerns Assessment Noted Time PHQ-9 Depression Total Score: 9 01/16/20 24 9:46 AM EDT documented as of this encounter Care Teams Crayon Grader Relationship Specialty Start Date End Date Kenyatta Perdomo MD [address] [place] [address] PCP - General Family Medicine 06/09/18 documented as of this encounter
--- OUTSIDE RECORDS SUMMARY | 2024-12-28 12:32 | XMS_ITS | Clinical Summary ---
Author Organization 175 [facility] Address [address] [place] [address] Phone Care Team Providers Care Automotive Leasing Sales Representative Name Role Phone Kenyatta Perdomo MD Primary Care Provider [phone] Allergies Active Allergy Reactions Criticality Noted Date [...] 9:45 AM EDT Office Visit Pulmonolgy - [place] [address] [phone] Asia Oakes MD [address] [address] Health Maintenance Due Date Last Done Comments [...] COVID-19 Vaccine (2 - season) 2024 09/30/2020 Depression Screening 06/09/2024 DTaP,Tdap,and Td Vaccines (8 - Td or Tdap) 11/07/2024 11/07/2014, 11/16/2013, 01/21/2007, Additional history exists Influenza Vaccine (#1) 2025 , 05/19/2018, 04/16/2016, Additional history exists IPV Vaccines [...] patient's age to complete this topic Insurance [facility] Member Subscriber Plan / Payer (Ef fective 2013-Present) Name:Edmond Ya Relation to Subscriber:Self Name:Edmond Ya Payer ID:[id number] Group ID:[id number] Type:Not on file Address: [place] [address] [place] [id number] Care Teams Automotive Leasing Sales Representative Relationship Specialty Start Date End Date Kenyatta Perdomo MD 505 [place] [address] PCP - General 01/20/23
== END 2024-12-28 11:18 | disposition home or self-care (01) ==
LOC: HO.US 11:17
PROVIDERS: PCP Pediatrics; Visit Provider Nurse Practitioner Family
DX: N20.1 Calculus of ureter (principal); N20.0 Calculus of kidney; N35.92 Unspecified urethral stricture, female; Z87.448 Personal history of other diseases of urinary system
CPT/HCPCS: 76770

== ENCOUNTER → 2024-12-28 11:18 | Outpatient (BNV) | payer OTHER, SELFPAY | PROVIDERS: PCP Pediatrics; Visit Provider Radiology Diagnostic Radiology | DX: N20.1 Calculus of ureter (principal) | CPT/HCPCS: 76770 ==

== ENCOUNTER 2025-01-05 11:18 | Outpatient (AMB) | payer OTHER, SELFPAY ==
--- NOTE | 2025-01-05 11:21 | A.OFFVIS_ITS ---
Intake Visit Reasons: /(pending 12/28) Intake Note: Patient is present for / Urology Medication:METRONIDAZOLE Antibiotic Allergy:PENICLLINS Blood Thinner:NONE Director Of Home Care Hospice Required: No Allergies Cephalosporins Allergy (Severe, Verified 01/05/25 13:24) Angioedema cefaclor (From CECLOR) Allergy (Unknown, Verified 01/05/25 13:24) ANGIOEDEMA Penicillins (PENICILLINS) Allergy (Unknown, Verified 01/05/25 13:24) HIVES Medication List - Last Reconciled 01/05/25 by ISABEL Celestin albuterol sulfate 90 mcg/actuation 2 puffs inhalation Q6H ascorbic acid (vitamin C) 1 g PO DAILY 90 days buspirone 5 mg PO BID catheter As directed once daily for urethral dilation clonazepam 0.5 mg PO DAILY PRN doxycycline hyclate 100 mg PO BID 14 days lidocaine HCl 2% 1 appl topical BID PRN loratadine 10 mg PO DAILY methenamine hippurate 1 g PO DAILY 90 days mometasone 0.1% 1 appl topical DAILY PRN phentermine 15 mg PO DAILY sertraline 100 mg PO DAILY tamsulosin 0.4 mg PO BEDTIME topiramate 50 mg PO DAILY zolpidem 5 mg PO BEDTIME HPI Comments Details: Edmond is a very pleasant 39-year-old female patient of Dr. Perdomo who was accompanied by her friend at today's office visit. She presents to the office today for follow-up of her urethral stricture, incomplete bladder emptying, and nephrolithiasis. In discussion with the patient today she continues to report episodes of dysuria. Of note, patient previously followed up with nursing for microgen approximately 2 weeks ago at which time she was prescribed Flagyl. She reports she has since completed Flagyl and has been feeling somewhat better. She reports dysuria is still present however not as significant as she had been previously experiencing. Microgen results 12/31 note provotella bivia, Streptococcus anginosus, megasphaera elsdenii, sneathia sanguinegens, aerococcus christensenii, lactobacillus iners, and Gardnerella vaginalis. ecent retroperitoneal ultrasound results reviewed with the patient today 12/31 bilateral kidneys are normal in size and echotexture. Extrarenal pelvis bilaterally. No findings of hydronephrosis or nephrolithiasis. The urinary bladder is unremarkable. She underwent surgical procedure with Dr. Arya Ceballos 08/31 ureteral dilatation, cystoscopy, retrograde, right ureteroscopy, and insertion of stent with string. In office urinalysis results reviewed with the patient today. She otherwise denies urinary urgency, urinary frequency, incontinence, nocturia, hematuria, foul smelling urine, changes to urinary stream, fever, and or chills. All questions were answered. She otherwise offers no other issues or concerns at this time. [facility] Medical History Incomplete bladder emptying Social History Household Members: Significant Other Housing: Apartment Do you presently have visiting nurse or other home services: No Patient Tobacco Use Status: Never used Tobacco service: No Review of Systems Const All systems reviewed & are unremarkable except as noted in HPI and below Reports no additional complaints Eyes Reports no additional complaints ENT Reports no additional complaints Card Reports no additional complaints Resp Reports no additional complaints GI Reports no additional complaints Reports as per HPI Musc Reports no additional complaints Neuro Reports no additional complaints Psych Reports no additional complaints Endo Reports no additional complaints Hector/Lymph Reports no additional complaints Aller/Immun Reports no additional complaints Physical Exam Const General: cooperative, healthy appearing, comfortable, no acute distress, well developed, alert and awake Orientation/consciousness: patient oriented x3 Limitations: no limitations HEENT Head: Yes normal to inspection, Yes normocephalic and Yes atraumatic Ears: hearing grossly normal bilaterally Eyes General: appearance normal, both eyes and all related structures Neck Neck: Yes normal visual inspection and Yes trachea midline Chest Chest palpation & inspection: normal inspection of the chest Resp Effort & Inspection: normal respiratory effort and able to speak in complete sentences Cardio Rate: regular rate GI Inspection: Yes normal to inspection General: Yes no CVA tenderness External Female Exam: other (ureteral stricture ) Back/Spine/Pelvis Back: no CVA tenderness Skin General skin exam: no rashes or lesions noted Neuro General: patient oriented x3 Extrem General: Yes normal to inspection Psych Appearance: grossly normal and well kempt Mental Status: mental status grossly normal Speech and movement: Normal speech and movement present and Clear speech present Affect: normal affect Attitude: cooperative Thought process: Normal thought process present Thought content: Normal thought content present Insight: Fair insight present (Psych) Judgement: Fair judgement present (Psych) Results AMB Urinalysis, Automated UA Leukoctes 0 Miquel/uL Last Edit by LILIAN Burgess on 01/05/25 11:39 UA Nitrite Negative Last Edit by LILIAN Burgess on 01/05/25 11:39 UA Urobilinogen 0.2 mg/dL Last Edit by LILIAN Burgess on 01/05/25 11:3 9 UA Protein 15 mg/dL Last Edit by Ruben Mathew [facility] on 01/05/25 11:39 UA pH 7.0 Last Edit by Ruben Mathew [facility] on 01/05/25 11:39 UA Blood 0 [place]/uL Last Edit by Ruben Mathew [facility] on 01/05/25 11:39 UA Specific [place] 1.010 Last Edit by Ruben Mathew [facility] on 01/05/25 11: 39 UA Ketone Negative Last Edit by LILIAN Burgess on 01/05/25 11:39 UA Bilirubin 0 mg/dL Last Edit by Ruben Mathew [facility] on 01/05/25 11:39 UA Glucose 0 mg/dL Last Edit by Ruben Mathew [facility] on 01/05/25 11:39 Results Reviewed Results Reviewed: Laboratory Last Values Urine pH (Auto) 7.0 01/05/25 11:38 Specific [place] (Auto) 1.010 01/05/25 11:38 Urine Protein (Auto) 15 mg/dL 01/05/25 11:38 Glucose (UA)(Auto) 0 mg/dL 01/05/25 11:38 Urine Ketones (Auto) Negative 01/05/25 11:38 Urine Blood (Auto) 0 [place]/uL 01/05/25 11:38 Urine Nitrite (Auto) Negative 01/05/25 11:38 Urine Bilirubin (Auto) 0 mg/dL 01/05/25 11:38 Urine Urobilinogen (Auto) 0.2 mg/dL 01/05/25 11:38 Leukocyte Esterase (Auto) 0 Miquel/uL 01/05/25 11:38 Date of Service: 12/28/24 Procedure(s): US retroperitoneal comp Findings: Right kidney normal size and echotexture, 11.0 cm length. Left kidney normal size and echotexture, 10.6 cm length. Extrarenal pelvis bilaterally. No findings of hydronephrosis. Normal color Doppler. Urinary bladder is unremarkable. Prevoid volume 130 mL. Postvoid volume 10.1 mL. Bilateral ureteral jets are visualized. IMPRESSION: 1. No hydronephrosis. No significant residual within the bladder. Assessment & Plan Assessment & Plan (1) Kidney stone: Code(s): N20.0 - Calculus of kidney Category: Medical (2) Unspecified urethral stricture, female: Code(s): N35.92 - Unspecified urethral stricture, female Category: Medical (3) Dysuria: Code(s): R30.0 - Dysuria Category: Medical Plan In office urinalysis results reviewed with the patient today; as noted above. Recent retroperitoneal ultrasound results reviewed with the patient today; as noted above. We did discussed potential causes of dysuria that patient is experiencing as well as further treatment options and risks and benefits of these treatment options. Start doxycycline as discussed and prescribed. We discussed initiation of methenamine and vitamin-C once completed with antibiotic therapy as prescribed. We discussed bladder triggers and irritants. Continue to self dilate. We discussed the importance of adequate hydration relation to lower urinary tract symptoms as well as overall health and well-being. Follow-up in 1-3 months with [facility]; or sooner with any issues, concerns, and or questions. Orders: Orders AMB Urinalysis Automated Today Z13.9 - Encounter for screening, unspecified Medications: New doxycycline hyclate 100 mg PO BID 28 tabs 0RF 14 days N39.0 - Urinary tract infection, site not specified, N45.1 - Epididymitis methenamine hippurate Start once completed with antibiotic therapy 1 g PO DAILY 90 tabs 1RF 90 days N39.0 - Urinary tract infection, site not specified ascorbic acid (vitamin C) 1 g PO DAILY 90 tabs 1RF 90 days N39.0 - Urinary tract infection, site not specified Patient Instructions: The patient had an opportunity to ask questions regarding the treatment plan. All questions were answered. Physical exam, labs, and imaging were discussed and reviewed in detail. As well as risks, benefits, and discussion of treatment choices. No major barriers to understanding were identified. The patient expressed understanding and agreement with the above treatment plan. The patient was made aware they should contact our office by phone for worsening of their current condition, the appearance of new symptoms, or with any questions or concerns. Compliance is encouraged with any medications and follow up testing that is ordered. It is a privilege to be allowed the opportunity to participate in? your urological care.? Again, if you have any questions or concerns If you have any questions or concerns please do not hesitate to contact me. The office is [phone]. This note is constructed using voice recognition software. While every effort has been made to ensure accuracy monitoring and evaluation advisor errors may have been included. Yours sincerely, DIANNA Celestin Coding Level of Care Code Est Pt Level 4 (68698) Diagnoses Kidney stone N20.0 Unspecified urethral stricture, female N35.92 Dysuria R30.0
--- OUTSIDE RECORDS SUMMARY | 2025-01-05 12:22 | XMS_ITS | Encounter Summary ---
Author Organization [employer] Address [address] [facility] 7t [place] [address] Care Team Providers Care Assistant Boiler Operator Name Role Phone Kenyatta Perdomo MD Primary Care Provider [phone] Reason for Visit * Reason Comments Med Refill Encounter Details Date Type Department Care Team ([facility] st Contact Info) Description 10/03/2024 Refill [facility] MED & PEDS [address] [place], [place] [phone] Kenyatta Perdomo MD [address] [place] [address] Social History Tobacco Use Types Packs/Day Years [...] Description 01/27/2025 9:15 AM EDT Office Visit [facility] MED & PEDS [address] [place] [address] Kenyatta Perdomo MD [address] [place] [address] 04/22/2025 10:00 AM EST Office Visit [facility] ADULT DENTAL [address] [place] [address] Sunshine Segovia documented as of this encounter Visit Diagnoses Not on filedocumented in this encounter Additional Health Concerns Assessment Noted Time PHQ-9 Depression Total Score: 9 01/16/20 24 9:46 AM EDT documented as of this encounter Care Teams Assistant Boiler Operator Relationship Specialty Start Date End Date Kenyatta Perdomo MD [address] [place] [address] PCP - General Family Medicine 06/09/18 documented as of this encounter
--- OUTSIDE RECORDS SUMMARY | 2025-01-05 12:22 | XMS_ITS | Clinical Summary ---
Author Organization [facility] Address [address] [place] [address] Phone Care Team Providers Care Jockey'S Agent Name Role Phone Unavailable Primary Care Provider [...] es Paternal Grandmother Paterna l grandmother: Sudden /[place] under age 55, Diabetes mellitus, Sister Alive [...]
--- OUTSIDE RECORDS SUMMARY | 2025-01-05 12:22 | XMS_ITS | Clinical Summary ---
Author Organization 175 [facility] Address [address] [place] [address] Phone Care Team Providers Care Telephone Lineworker Name Role Phone Kenyatta Perdomo MD Primary Care Provider [phone] Allergies Active Allergy Reactions Criticality Noted Date [...] 9:45 AM EDT Office Visit Pulmonolgy - [place] [address] [phone] Asia Oakes MD [address] [address] Health Maintenance Due Date Last Done Comments [...] age to complete this topic Insurance [facility] Member Subscriber Plan / Payer (Ef fective 2013-Present) Name:Edmond Ya Relation to Subscriber:Self Name:Edmond Ya Payer ID:[id number] Group ID:[id number] Type:Not on file Address: [place] [address] [place] [phone] Care Teams Telephone Lineworker Relationship Specialty Start Date End Date Kenyatta Perdomo MD [address] [place] [address] PCP - General 01/20/23
== END 2025-01-05 13:12 | disposition home or self-care (01) ==
LOC: HO.HUSH 11:19
PROVIDERS: PCP Pediatrics; Visit Provider Nurse Practitioner Family
DX: N20.0 Calculus of kidney (principal); N35.92 Unspecified urethral stricture, female; R30.0 Dysuria; Z13.9 Encounter for screening, unspecified
CPT/HCPCS: 99214

== ENCOUNTER → 2025-01-05 11:18 | Outpatient (BNVA) | payer OTHER, SELFPAY | PROVIDERS: PCP Pediatrics; Visit Provider Nurse Practitioner Family | DX: N20.0 Calculus of kidney (principal); R30.0 Dysuria; N35.92 Unspecified urethral stricture, female; N39.0 Urinary tract infection, site not specified | CPT/HCPCS: 81003; 99212 ==

== ENCOUNTER 2025-04-14 11:31 | Outpatient (AMB) | payer OTHER, SELFPAY ==
--- NOTE | 2025-04-14 11:35 | MHC.OFFVIS ---
Intake Visit Reasons: 3m/PVR Intake Note: Patient is present for 3M/PVR Urology Medication:VITAMIN C, METHENAMINE,TAMSULOSIN Antibiotic Allergy:PENICILLINS Blood Thinner:NONE TODAY'S PVR:99ML'S Organic Gardening Teacher Required: No Allergies Cephalosporins Allergy (Severe, Verified 04/14/25 11:36) Angioedema cefaclor (From CECLOR) Allergy (Unknown, Verified 04/14/25 11:36) ANGIOEDEMA Penicillins (PENICILLINS) Allergy (Unknown, Verified 04/14/25 11:36) HIVES HPI Comments Details: Edmond is a very pleasant 39-year-old female patient of Dr. Perdomo who was accompanied by her friend at today's office visit. She presents to the office today for follow-up of her urethral stricture, incomplete bladder emptying, and nephrolithiasis. In discussion with the patient today she continues to report episodes of dysuria. Of note, patient previously followed up with nursing for microgen approximately 2 weeks ago at which time she was prescribed Flagyl. She reports she has since completed Flagyl and has been feeling somewhat better. She reports dysuria is still present however not as significant as she had been previously experiencing. Microgen results 12/31 note provotella bivia, Streptococcus anginosus, megasphaera elsdenii, sneathia sanguinegens, aerococcus christensenii, lactobacillus iners, and Gardnerella vaginalis. ecent retroperitoneal ultrasound results reviewed with the patient today 12/31 bilateral kidneys are normal in size and echotexture. Extrarenal pelvis bilaterally. No findings of hydronephrosis or nephrolithiasis. The urinary bladder is unremarkable. She underwent surgical procedure with Dr. Arya Ceballos 08/31 ureteral dilatation, cystoscopy, retrograde, right ureteroscopy, and insertion of stent with string. In office urinalysis results reviewed with the patient today. She otherwise denies urinary urgency, urinary frequency, incontinence, nocturia, hematuria, foul smelling urine, changes to urinary stream, fever, and or chills. All questions were answered. She otherwise offers no other issues or concerns at this time. [facility] Medical History Incomplete bladder emptying Social History Household Members: Significant Other Housing: Apartment Do you presently have visiting nurse or other home services: No Patient Tobacco Use Status: Never used Tobacco service: No Office Procedures Post Void Residual Post Residual Void Post Void Residual (PVR): 99 [id number] Void Residual by ultrasound Results AMB Urinalysis, Automated UA Leukoctes 0 Miquel/uL Last Edit by LILIAN Burgess on 04/14/25 11:46 UA Nitrite Negative Last Edit by LILIAN Burgess on 04/14/25 11:46 UA Urobilinogen 0.2 mg/dL Last Edit by LILIAN Burgess on 04/14/25 11:46 UA Protein 15 mg/dL Last Edit by LILIAN Burgess on 04/14/25 11:46 UA pH 6.0 Last Edit by LILIAN Burgess on 04/14/25 11:46 UA Blood 0 [place]/uL Last Edit by LILIAN Burgess on 04/14/25 11:46 UA Specific [place] 1.020 Last Edit by LILIAN Burgess on 04/14/25 11:46 UA Ketone Negative Last Edit by LILIAN Burgess on 04/14/25 11:46 UA Bilirubin 0 mg/dL Last Edit by LILIAN Burgess on 04/14/25 11:46 UA Glucose 0 mg/dL Last Edit by LILIAN Burgess on 04/14/25 11:46 Assessment & Plan Assessment & Plan Orders: Orders AMB Urinalysis Automated Today Z13.9 - Encounter for screening, unspecified Coding Level of Care Code Est Pt Level 3 (62420) CPT Codes Post Residual Void - PVR CPT Code: 72609-[id number] Void Residual by ultrasound ([id number])
--- OUTSIDE RECORDS SUMMARY | 2025-04-14 14:30 | XMS_ITS | Encounter Summary ---
Author Organization [employer] Address [address] [facility] [address] [place] [address] Care Team Providers Care Spinning Supervisor Name Role Phone Kenyatta Perdomo MD Primary Care Provider [phone] Encounter Details Date Type Department Care Team (Late st Contact Info) Description 03/14/2023 Abstract [facility] ADULT DENTAL [address] [place] [address] Kip Gomez DDS [address] [place] [address] Social History Tobacco Use Types Packs/Day Years [...] Care Team (Late st Contact Info) Description 04/22/2025 10:15 AM EST Office Visit [facility] ADULT DENT[facility] [address] [place] [address] Sunshine Segovia 04/29/2025 9:00 AM EST Office Visit [facility] MED & PEDS [address] [place] [address] Kenyatta Perdomo MD [address] [place] [address] documented as of this encounter Visit Diagnoses Not on filedocumented in this encounter Care Teams Spinning Supervisor Relationship Specialty Start Date End Date Kenyatta Perdomo MD [address] [place] [address] PCP - General Family Medicine 06/09/18 documented as of this encounter
--- OUTSIDE RECORDS SUMMARY | 2025-04-14 14:30 | XMS_ITS | Encounter Summary ---
Author Organization [employer] Address [address] [place] [address] Care Team Providers Care Jury Consultant Name Role Phone Kenyatta Perdomo MD Primary Care Provider [phone] Reason for Visit * Reason Onset Date Comments Med Refill 04/14/2025 Encounter Details Date Type Department Care Team ([facility] st Contact Info) Description 04/14/2025 Refill [facility] MED & PEDS [address] [place] [address] Kenyatta Perdomo MD [address] [place] [address] Social History Tobacco Use Types Packs/Day Years Used Date Smoking Tobacco: Never Passive Smoke Exposure: Never Smokeless Tobacco: Never Alcohol Use Standard Drinks/Week Comments Defer 0 (1 standard drink = 0.6 oz pur e alcohol) Depression Answer Date Recorded Patient Health Questionnaire-9 Score 4 01/27/2025 Patient Health Questionnaire-9 Score 4 01/27/2025 Last PHQ-9: Questionnaire Data Not on file 0 01/27/2025 Housing Stability Answer Date Recorded What is [...] Answer Date Recorded Patient Health Questionnaire-2 Score 1 01/27/2025 Internet Access Answer Date Recorded Internet Access [...] Description 04/22/2025 10:15 AM EST Office Visit [facility] ADULT DENTAL [address] [place] [address] Sunshine Segovia 04/29/2025 9:00 AM EST Office Visit [facility] MED & PEDS [address] [place] [address] Kenyatta Perdomo MD [address] [place] [address] documented as of this encounter Visit Diagnoses Not on filedocumented in this encounter Additional Health Concerns Assessment Noted Time PHQ-9 Depression Total Score: 4 01/28/20 25 9:40 AM EDT documented as of this encounter Care Teams Jury Consultant Relationship Specialty Start Date End Date Kenyatta Perdomo MD [address] [place] [address] PCP - General Family Medicine 06/09/18 documented as of this encounter
--- OUTSIDE RECORDS SUMMARY | 2025-04-14 14:30 | XMS_ITS | Clinical Summary ---
Author Organization [facility] Address [address] [place] [address] Phone Care Team Providers Care Hvac Service Tech Name Role Phone Unavailable Primary Care Provider [...] es Paternal Grandmother Paterna l grandmother: Sudden /IA under age 55, Diabetes mellitus, Sister Alive [...] 02/06/1998, Additional history exists Influenza Vaccines (#1) 2025 COVID-19 Vaccine (2024- season) 2025 IPV Vaccines Completed 02/06/1998, 01/09, 11/06/1996, [...]
--- OUTSIDE RECORDS SUMMARY | 2025-04-14 14:30 | XMS_ITS | Encounter Summary ---
Author Organization [employer] Address [address] [place] [address] Care Team Providers Care Canvas Shrinker Name Role Phone Kenyatta Perdomo MD Primary Care Provider [phone] Reason for Visit * Reason Onset Date Comments Med Refill 04/14/2025 Encounter Details Date Type Department Care Team ([facility] st Contact Info) Description 04/14/2025 Refill [facility] MED & PEDS [address] [place] [address] Kenyatta Perdomo MD [address] [place] [address] Social History Tobacco Use Types Packs/Day Years [...] Description 04/22/2025 10:15 AM EST Office Visit [facility] ADULT DENTAL [address] [place] [address] Sunshine Segovia 04/29/2025 9:00 AM EST Office Visit [facility] MED [facility] PED[facility] [address] [place] [address] Kenyatta Perdomo MD [address] [place] [address] documented as of this encounter Visit Diagnoses Not on filedocumented in this encounter Additional Health Concerns Assessment Noted Time PHQ-9 Depression Total Score: 4 01/28/20 25 9:40 AM EDT documented as of this encounter Care Teams Canvas Shrinker Relationship Specialty Start Date End Date Kenyatta Perdomo MD [address] [place] [address] PCP - General Family Medicine 06/09/18 documented as of this encounter
--- OUTSIDE RECORDS SUMMARY | 2025-04-14 14:30 | XMS_ITS | Encounter Summary ---
Author Organization [employer] Address [address] [facility] [address] [place] [address] Care Team Providers Care Local Telephone Operator Name Role Phone Kenyatta Perdomo MD Primary Care Provider [phone] Encounter Details Date Type Department Care Team (Late st Contact Info) Description 08/04/2024 Orders Only [facility] [address] [place] [address] Provider, MD Milli Social History Tobacco Use Types Packs/Day Years [...] your housing situation today? I have bob liz 01/16/[address] you li [...] Upcoming Encounters Date Type Department Care Team ([facility] st Contact Info) Description 04/22/2025 10:15 AM EST Office Visit [facility] ADULT DENTAL [address] [place] [address] Sunshine Segovia 04/29/2025 9:00 AM EST Office Visit [facility] MED & PEDS [address] [place] [address] eKnyatta Perdomo MD [address] [place] [address] documented as of this encounter Procedures Procedure Name Priority Date/Time Associated Diagnosis Comments XR CHEST 2 VIEWS Routine 08/03/2024 9:11 AM EST documented in this encounter Results * XR Chest 2 Views (08/03/2024 9:11 AM EST) Anatomical Region Laterality Modality Chest Radiographic Maria ging Historical Provider MD TIJERINA XR PROCEDURES Final R esult documented in this encounter Visit Diagnoses Not on filedocumented in this encounter Additional Health Concerns Assessment Noted Time PHQ-9 Depression Total Score: 9 01/16/20 24 9:46 AM EDT documented as of this encounter Care Teams Local Telephone Operator Relationship Specialty Start Date End Date Kenyatta Perdomo MD [address] [place] [address] PCP - General Family Medicine 06/09/18 documented as of this encounter
--- OUTSIDE RECORDS SUMMARY | 2025-04-14 14:30 | XMS_ITS | Encounter Summary ---
Author Organization [facility] Address [address] [place] [address] Phone Care Team Providers Care Dag Sprayer Name Role Phone Unavailable Primary Care Provider Unavailabl e Encounter Details Date Type Department Care Team (Late st Contact Info) Description 01/23/2017 Conversion Encounter [facility] - [address] [address] Social History Tobacco Use Types Packs/Day Years [...]
--- OUTSIDE RECORDS SUMMARY | 2025-04-14 14:31 | XMS_ITS | Encounter Summary ---
Author Organization [employer] [facility] Address [address] [place] [address] Care Team Providers Care Filament Welder Name Role Phone Kenyatta Perdomo MD Primary Care Provider [phone] Encounter Details Date Type Department Care Team (Latest Contact Info) Description 09/06/2020 Abstract [facility] CONVERSIONS Dental, Provider, DDS Social History Tobacco [...] Description 04/22/2025 10:15 AM EST Office Visit [facility] ADULT DENT[facility] [address] [place] [address] Sunshine Segovia 04/29/2025 9:00 AM EST Office Visit [facility] P[facility] [address] [place] [address] Kenyatta Perdomo MD [address] [place] [address] documented as of this encounter Visit Diagnoses Not on filedocumented in this encounter Care Teams Filament Welder Relationship Specialty Start Date End Date Kenyatta Perdomo MD [address] [place] [address] PCP - General Family Medicine 06/09/18 documented as of this encounter
--- OUTSIDE RECORDS SUMMARY | 2025-04-14 14:31 | XMS_ITS | Encounter Summary ---
Author Organization [employer] Address [address] [place] [address] Care Team Providers Care Sales Support Administrator Name Role Phone Kenyatta Perdomo MD Primary Care Provider [phone] Reason for Visit * Reason Onset Date Comments Hospital Follow-up 08/23/2024 Encounter Details Date Type Department Care Team ([facility] Contact Info) Description 08/23/2024 Telephone [facility] MED & PEDS [address] [place], [place] [id number] Kenyatta Perdomo MD [address] [place] [address] Hospital Follow-up Social History Tobacco Use Types [...] from pt requesting a HDF appt. [facility] [facility] Date of admission: 08/19/24 Discharge date: 08/21/24 Diagnosed: Kidney stones *Send message to Deshawn Clinical Care Coordinators Contact pt at [phone] documented in this encounter Plan of Treatment Upcoming Encounters Date Type Department Care Team ([facility] st Contact Info) Description 04/22/2025 10:15 AM EST Office Visit [facility] AD[facility] [address] [place] [address] Sunshine Segovia 04/29/2025 9:00 AM EST Office Visit [facility] MED & PEDS [address] [place] [address] Kenyatta Perdomo MD [address] [place] [address] documented as of this encounter Visit Diagnoses Not on filedocumented in this encounter Additional Health Concerns Assessment Noted Time PHQ-9 Depression Total Score: 9 01/16/20 24 9:46 AM EDT documented as of this encounter Care Teams Sales Support Administrator Relationship Specialty Start Date End Date Kenyatta Perdomo MD [address] [place] [address] PCP - General Family Medicine 06/09/18 documented as of this encounter
--- OUTSIDE RECORDS SUMMARY | 2025-04-14 14:31 | XMS_ITS | Clinical Summary ---
Author Organization [employer] Address [address] [facility] 7[address] [place] [address] Care Team Providers Care Reservation Agent Name Role Phone Kenyatta Perdomo MD Primary Care Provider [phone] Allergies Active Allergy Reactions Criticality Noted Date Comments Cefaclor Unknown 06/04/2010 Other reaction(s): THROAT SWELLS Penicillin V Unknown 06/04/2010 Penicillins 05/27/2022 Medications * This document contains information received from the source organization and may not represent a complete record from that organization. albuterol (Proventil HFA) 108 (90 Base) MCG/ACT inhaler Inhale 2 puffs every 4 (four) hours. 06/06/20 20 Active busPIRone (Buspar) 5 MG tablet Take 1 tablet by mouth every 8 (eight) hours. Active clonazePAM (KlonoPIN) 0.5 MG tablet Take 1 tablet by mouth. Active sertraline (Zoloft) 100 MG tablet Take 100 mg by mouth in the morning. 04/24/20 22 Active cholecalciferol (Vitamin D-3) 25 MCG (1000 UT) tablet take one tab orally daily 04/13/20 21 Active zolpidem (Ambien) 5 MG tablet Take 5 mg by mouth if needed at bedtime. 12/04/19 23 Active budesonide-form oterol (Symbicort) 160-4.5 MCG/ACT inhaler Inhale 2 puffs in the morning and at bedtime. Rinse mouth with water after use to reduce aftertaste and incidence of candidiasis. Do not swallow. 1 each 11 01/16/20 23 Active Additional Information Patient not taking.Reported on 01/26/2025 fluticasone (Flonase) 50 MCG/ACT nasal spray Administer 2 sprays into each nostril in the morning. 16 g 3 03/19/20 23 Active bacitracin-poly myxin b (Polysporin) ointmentIndicat ions:Boil of buttock Apply topically 2 times daily. 30 g 3 07/06/19 25 Active loratadine (Claritin) 10 MG tablet Take 1 tablet (10 mg) by mouth Once per day. 90 tablet 3 08/04/19 25 2025 Active mometasone (Elocon) 0.1 % ointment Apply topically Once per day. 45 g 5 08/04/19 25 2025 Active tamsulosin (Flomax) 0.4 MG 24 hr capsule Take 1 capsule (0.4 mg) by mouth Once per day. 30 capsule 09/02/19 25 Active chlorhexidine (Peridex) 0.12 % solution Swish 15 mL morning and night for 1 minute. Spit, do not swallow. Do not eat or drink for 30 minutes following use. 473 mL 09/09/19 25 Active topiramate (Topamax) 50 MG tablet Take 1 tablet (50 mg) by mouth Once per day. 90 tablet 3 11/04/19 25 Active metroNIDAZOLE (Metrogel) 0.75 % gel Apply topically 2 times daily. 45 g 11 11/04/19 25 2025 Active ibuprofen 600 MG tablet Take 1 tablet (600 mg) by mouth every 6 (six) hours if needed for mild pain. 40 tablet 1 12/07/19 25 2025 Active phentermine 30 MG capsule TAKE 1 CAPSULE BY MOUTH BEFORE BREAKFAST 30 capsule 03/08/20 25 Active acetaminophen (Tylenol) 500 MG tablet Take 2 tablets (1,000 mg) by mouth every 6 (six) hours if needed for moderate pain or fever for up to 25 doses. 50 tablet 04/06/20 25 Active ibuprofen 400 MG tablet Take 1 tablet (400 mg) by mouth every 6 (six) hours if needed for moderate pain or fever for up to 30 doses. 30 tablet 04/06/20 25 Active azithromycin (Zithromax Z-Lucio) 250 MG tablet Take 2 tablets once on day 1, then 1 tablet 1x/day for 4 days. 6 tablet 04/06/20 Active albuterol (2.5 MG/3ML) 0.083% nebulizer solutionIndicat ions:Severe persistent asthma with allergic rhinitis with acute exacerbation (HCC) Use via nebulizer every 6 hours prn wheezing 75 mL 2 04/06/20 25 Active albuterol (2.5 MG/3ML) 0.083% nebulizer solution Use via nebulizer every 6 hours prn wheezing 75 mL 03/19/20 23 2024 Discontinued(R eorder (will not trigger notification to Pharmacy)) predniSONE (Deltasone) 20 MG tablet Take 2 tablets (40 mg) by mouth Once per day for 5 days. 10 tablet 04/06/20 25 2024 fluconazole (Diflucan) 150 MG tablet Take 1 tablet (150 mg) by mouth Once per day for 1 dose. Prn vaginal discharge 1 tablet 04/06/202024 Active Problems Problem Noted Date Diagnosed Date [...] Mild persistent allergic asthma 05/19/2018 08/04/2024 Encounters Date Type Department Care Team Description 04/14/2025 Refill [facility] [address] [place] [address] Kenyatta Perdomo MD 04/14/2025 Refill [facility] [address] [place] [address] Kenyatta Perdomo MD 04/06/2025 9:20 AM EDT Office Visit [facility] [address] [place] [address] [phone] Brandan Alejo MD Streptococcal pharyngitis (Primary Dx); Severe persistent asthma with allergic rhinitis with acute exacerbation (HCC); Cough in adult patient 04/06/2025 Telephone [facility] [address] [place] [address] Kenyatta Perdomo MD 04/06/2025 Travel 03/08/2025 Refill [facility] [address] [place] [address] Kenyatta Perdomo MD 01/27/2025 9:15 AM EDT Office Visit [facility] [address] [place] [address] Kenyatta Perdomo MD Severe persistent asthma with allergic rhinitis, unspecified whether complicated (Primary Dx); Obesity (BMI 35.0-39.9 without comorbidity); 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 01/27/2025 Travel 01/26/2025 3:00 PM EDT Office Visit [facility] ADULT D[facility] [address] [place] [address] Wilman Boston DMD Bruxism (Primary Dx) 01/20/2025 Travel 01/14/2025 9:30 AM EDT Office Visit [facility] [address] [place] [address] Wilman Boston DMD Fractured dental druze with loss of material (Primary Dx); Bruxism 01/12/2025 1:00 PM EDT Office Visit [facility] [address] [place] [address] Wilman Boston DMD Fractured dental druze with loss of material (Primary Dx) from Last 3 Months Immunizations Immunization Administration Dates Next Due DTP 02/06/1998, 7,11/06/1996,09/06,12/06/1990 HPV, Quadrivalent 10/23/2007,03/23/2007,01/22/20 07 Hep B, Adolescent or Pediatric 10/31/1998,1997,04/08/1998 Hib ([facility]) 04/08/1999 IPV 02/06/1998, 7,11/06/1996,09/06,12/06/1990 Influenza Whole 04/26/2008 [...] Sign Reading Time Taken Comments Blood Pressure 121/72 04/06/2025 9:01 AM EDT Pulse 91 04/06/2025 9:01 AM EDT Temperature 36.8 C (98.2 F) 04/06/2025 9:01 AM EDT Respiratory Rate 20 04/06/2025 9:01 AM EDT Oxygen Saturation 97% 04/06/2025 9:01 AM EDT Inhaled Oxygen Concentration - - Weight 81.2 kg (179 lb) 01/27/2025 9:13 AM EDT Height 152.4 cm (5') 11/03/2024 9:09 AM EDT Body Mass Index 34.96 11/03/2024 9:09 AM EDT Plan of Treatment Upcoming Encounters Date Type Department Care Team ([facility] st Contact Info) Description 04/22/2025 10:15 AM EST Office Visit [facility] ADULT [facility] [address] [place] [address] Sunshine Segovia 04/29/2025 9:00 AM EST Office Visit [facility] [address] [place] [address] Kenyatta Perdomo MD [address] [place] [address] Health Maintenance Due Date Last Done Comments Lipid Panel 1986 Alcohol/Substance Use Screening 1998 Hepatitis B Vaccines (3 of 3 - 3-dose series) 12/26/1998 10/31/1998, 05/01/1998, 04/08/1998 Family Planning (PISQ) 2001 DTaP/Tdap/Td Vaccines (8 - Td or Tdap) 11/07/2024 11/07/2014, 11/16/2013, 01/21/2007, Additional history exists COVID-19 Vaccine (2 - season) 2025 09/30/2020 Influenza Vaccine (#1) 2025 , 03/08/2020, 05/19/2018, Additional history exists Dental X-Ray: Bitewings 04/15/2025 04/14/20 24, 09/02/2023, 01/14/2023 Dental Prophylaxis 04/21/2025 10/18/2024, 1 06/14/2023, 09/16/2023, Additional history exists Dental Oral Exam 04/29/2025 10/26/2024, 11/2023, 01/14/2023 SDOH Screening 08/23/2025 08/23/2024 Disability Screening 08/31/2025 08/31/2024 Depression Screening 01/27/2026 01/27/2025, 01/28/20 Tobacco Screening 04/06/2026 04/06/2025 Dental X-Ray: Full Mouth 04/15/2027 04/14/2024 Cervical [...] 01/16/2024, 01/08/2021 Hepatitis C Screening Completed 01/16/2024 Pneumococcal Vaccine: Pediatrics (0 to 5 Years) and At-Risk Patients (6 to 49) Years Completed 09/02/2024 Hepatitis A Vaccines Aged Out [...] Procedure Name Priority Date/Time Associated Diagnosis Comments POCT INFLUENZA A (ID NOW RAPID MOLECULAR) Routine 04/06/2025 9:21 AM EDT Cough in adult patient POCT RAPID STREP A Routine 04/06/2025 9: 20 AM EDT Cough in adult patient POCT RAPID COVID ANTIGEN Routine 04/06/2025 9:20 AM EDT Cough in adult patient POCT INFLUENZA B (ID NOW RAPID MOLECULAR) Routine 04/06/2025 9:20 AM EDT Cough in adult patient CASE PRESENTATION, DETAILED AND EXTENSIVE TREATMENT PLANNING Routine 01/26/2025 3:00 PM EDT Bruxism Chavez OCCLUSAL GUARD - HARD APPLIANCE, FULL ARCH Routine 01/26/2025 3:00 PM EDT Bruxism CASE PRESENTATION, DETAILED AND EXTENSIVE TREATMENT PLANNING Routine 01/14/2025 9:30 AM EDT Fractured dental druze with loss of material Bruxism NIGHTGUARD IMPRESSION Routine 01/14/2025 9:30 AM EDT Bruxism 9 YASMINE RESIN-BASED COMPOSITE - 3 SURF, ANTERIOR Routine 01/14/2025 9:30 AM EDT Fractured dental druze with loss of material CASE PRESENTATION, DETAILED AND EXTENSIVE TREATMENT PLANNING Routine 01/12/2025 1:00 PM EDT Fractured dental druze with loss of material INTRAORAL - PERIAPICAL FIRST RADIOGRAPHIC IMAGE Routine 01/12/2025 1:00 PM EDT Fractured dental druze with loss of material LIMITED ORAL EVALUATION - PROBLEM FOCUSED Routine 01/12/2025 1:00 PM EDT Fractured dental druze with loss of material PERIODIC ORAL EVALUATION - ESTABLISHED PATIENT Routine 10/26/2024 9:00 AM EDT Secondary dental caries associated with failed or defective dental druze PROPHYLAXIS - ADULT Routine 10/18/2024 1 0:00 AM EDT INTRAORAL - COMPLETE SERIES OF RADIOGRAPHIC IMAGES Routine 04/14/2024 9:00 AM EST Secondary dental caries associated with failed or defective dental druze Bruxism HEPATITIS C AB W/REFL TO HCV RNA, QN, PCR Routine 01/16/2024 10:36 AM EDT Rash HIV 1/2 ANTIGEN/ANTIBODY, FOURTH GENERATION W/RFL Routine 01/16/2024 10:36 AM EDT Rash HM PAP/HPV Routine 01/15/2023 from Last 3 Months or Most Recently Relevant to Health Maintenance Results * Influenza A (ID NOW Rapid Molecular) (04/06/2025 9:21 AM EDT) [facility] Influenza A Negative Negative, Indeterminate [facility] Swab 04/06/2025 9:21 AM EDT us Brandan Alejo MD POINT OF CARE TEST ENTER/EDIT OR DERABLES Final Result Performing Organization Address [facility]/ZIP Co de Phone Number [facility] [address] [place] [phone] * Influenza B (ID NOW Rapid Molecular) (04/06/2025 9:20 AM EDT) [facility] Influenza B Negative Negative, Indeterminate [facility] Swab 04/06/2025 9:20 AM EDT us Brandan Alejo MD POINT OF CARE TEST ENTER/EDIT OR DERABLES Final Result Performing Organization Address [facility] Co de Phone Number [facility] [address] [place] [phone] * POCT Rapid COVID Ag (04/06/2025 9:20 AM EDT) [facility] Rapid COVID Ag Negative Swab 04/06/2025 9:20 AM EDT us Brandan Alejo MD POINT OF CARE TEST ENTER/EDIT OR DERABLES Final Result * (ABNORMAL) POCT rapid strep A manually resulted (04/06/2025 9:20 AM EDT) [facility] Rapid Strep A Screen Positive( A) Negative, None Detected Swab 04/06/2025 9:20 AM EDT Brandan Alejo MD POINT OF CARE TEST ENTER/EDIT OR DERABLES Final Result * Hepatitis C Antibody with Reflex to HCV, RNA, Quantitative, Real-Time PCR (01/16/2024 10:36 AM EDT) Pathologist [facility] Hepatitis C Antibody Nonreactive Nonreactive [facility] Comment:Antibodies to HCV no t detected; does not exclude early acuteHCV infection. Blood Venous blood specimen / Unknown 01/16/2024 10:36 AM EDT 01/16/2024 1:59 PM EDT Kenyatta Perdomo MD LAB BLOOD ORDERABLES Final Re sult Performing Organization Address [facility]/ZIP Co de Phone Number [facility] [address] [place] [phone] * HIV-1/2 Antigen and Antibodies, Fourth Generation, with Reflexes (01/16/2024 10:36 AM EDT) Pathologist [facility] HIV AB/AG Nonreactive Nonreactive [facility] Comment:HIV-1 p24 Ag and/or HIV-1/HIV-2 Ab not detected.A test result that is nonreactive does not exclude thepossibility of exposure to or infection with HIV-1 and/orHIV-2. Nonreactive results in this assay for individualswith prior exposure to HIV-1 and/or HIV-2 may be due toantigen and antibody levels that are below the limit ofdetection of this assay.The [employer] HIV Ag/Ab Combo assay result andsupplemental assay results should be interpreted inconjunction with the patient's clinical presentation,history and other laboratory results. If the results areinconsistent with clinical evidence, additional testing issuggested to confirm the result. Blood Venous blood specimen / Unknown 01/16/2024 10:36 AM EDT 01/16/2024 1:59 PM EDT Kenyatta Perdomo MD LAB BLOOD ORDERABLES Final Re sult Performing Organization Address City/[facility]/ZIP Co de Phone Number [facility] [address] [place] [address] [phone] * Pap Smear (01/15/2023) Pap Negative for intraephithelial lesion or malignancy Negative for intraephithelial lesion or malignancy, Other HPV Undetected Undetected, Indeterminate, Quantitative, Not Detected us Historical Provider HEALTH MAINTENANCE Final Result from Last 3 Months or Most Recently Relevant to Health Maintenance [place] [address] [place] [address] < [address] [place] [address] Care Teams Reservation Agent Relationship Specialty Start Date End Date Kenyatta Perdomo MD [address] [place] [phone] PCP - General Family Medicine 06/09/18
--- OUTSIDE RECORDS SUMMARY | 2025-04-14 14:31 | XMS_ITS | Encounter Summary ---
Author Organization [employer] Address [address] [facility] 7t [place] [address] Care Team Providers Care Certified Rehabilitation Counselor Name Role Phone Kenyatta Perdomo MD Primary Care Provider [phone] Reason for Visit * Reason Comments Med Refill Encounter Details Date Type Department Care Team ([facility] st Contact Info) Description 10/03/2024 Refill [facility] & PEDS [address] [place], [place] [phone] Kenyatta Perdomo MD [address] [place] [address] Social History Tobacco Use Types Packs/Day Years [...] 10:15 AM EST Office Visit [facility] ADULT [facility] [address] [place] [address] Sunshine Segovia 04/29/2025 9:00 AM EST Office Visit [facility] [address] [place] [address] Kenyatta Perdomo MD [address] [place] [address] documented as of this encounter Visit Diagnoses Not on filedocumented in this encounter Additional Health Concerns Assessment Noted Time PHQ-9 Depression Total Score: 9 01/16/20 24 9:46 AM EDT documented as of this encounter Care Teams Certified Rehabilitation Counselor Relationship Specialty Start Date End Date Kenyatta Perdmoo MD [address] [place] [address] PCP - General Family Medicine 06/09/18 documented as of this encounter
--- OUTSIDE RECORDS SUMMARY | 2025-04-14 14:31 | XMS_ITS | Encounter Summary ---
Author Organization [facility] Address [address] [place] [address] [address], [place] [address] Care Team Providers Care Production Zone Leader Name Role Phone Kenyatta Perdomo MD Primary Care Provider [phone] Encounter Details Date Type Department Care Team (Latest Contact Info) Description 11/24/2018 Abstract [facility] CONVERSION[facility] Dental, Provider, DDS Social History [...] Upcoming Encounters Date Type Department Care Team ( st Contact Info) Description 04/22/2025 10:15 AM EST Office Visit [facility] ADULT DENTAL [address] [place] [address] Sunshine Segovia 04/29/2025 9:00 AM EST Office Visit [facility] PED[facility] [address] [place] [address] Kenyatta Perdomo MD [address] [place] [address] documented as of this encounter Visit Diagnoses Not on filedocumented in this encounter Care Teams Production Zone Leader Relationship Specialty Start Date End Date Kenyatta Perdomo MD [address] [place] [address] PCP - General Family Medicine 1/1/19 documented as of this encounter
--- OUTSIDE RECORDS SUMMARY | 2025-04-14 14:31 | XMS_ITS | Clinical Summary ---
Author Organization [address] [place] [address] Address [address] [place] [address] Phone Care Team Providers Care Pneumatic Hoist Operator Name Role Phone Kenyatta Perdomo MD Primary Care Provider [phone] Allergies Active Allergy Reactions Criticality Noted Date Comments Cefaclor 01/21/2023 Doxycycline Hyclate Unknown 09/02/2022 Penicillin G 01/21/2023 Medications budesonide-form oteroL (SYMBICORT) 160-4.5 mcg/actuation inhaler Inhale 2 Puffs into the lungs 2 times daily. 3 inhalers & 3 refills 4 Active zolpidem (AMBIEN) 5 mg tablet Take by mouth at bedtime as needed. Active clonazePAM (KlonoPIN) 0.5 mg tablet Take 1 Tablet by mouth 2 times daily as needed. Active busPIRone (BUSPAR) 5 mg tablet Take 1 Tablet by mouth 3 times daily. Active ipratropium/alb uterol sulfate (IPRATROPIUM-AL BUTEROL INHL) Inhale into the lungs. Active albuterol HFA (PROAIR HFA ; PROVENTIL HFA ; VENTOLIN HFA) 90 mcg/actuation inhaler Inhale 2 puffs by mouth every 6 (six) hours if needed for wheezing. 3 each 3 5 Active budesonide-form oteroL (Symbicort) 160-4.5 mcg/actuation inhaler Inhale 2 puffs by mouth 2 (two) times a day. Rinse mouth with water after use to reduce aftertaste and incidence of candidiasis. Do not swallow. 1 each 11 02/08/20 Active albuterol HFA (Ventolin HFA) 90 mcg/actuation inhaler Inhale 2 puffs by mouth every 6 (six) hours if needed for wheezing. 1 each 5 02/08/20 Active Encounters Date Type Department Care Team Description 02/01/2025 9:45 AM EDT Office Visit [facility] [address] [facility] [address] [place] [address] Asia Oakes MD Moderate persistent asthma, unspecified whether complicated (Primary Dx); Marijuana smoker; Chronic cough from Last 3 Months Social History Tobacco [...] Sign Reading Time Taken Comments Blood Pressure 111/74 02/01/2025 9:44 AM EDT Pulse 85 02/01/2025 9:44 AM EDT Temperature 36.3 C (97.3 F) 02/01/2025 9:44 AM EDT Respiratory Rate 16 08/02/2024 8:56 AM EST Oxygen Saturation 100% 02/01/2025 9:44 AM EDT Inhaled Oxygen Concentration - - Weight 80.7 kg (178 lb) 02/01/2025 9:44 AM EDT Height 152.4 cm (5') 08/02/2024 8:56 AM EST Body Mass Index 34.76 08/02/2024 8:56 AM EST Plan of Treatment Upcoming Encounters Date Type Department Care Team (Late st Contact Info) Description 08/04/2025 9:45 AM EST Office Visit [facility] [address] [facility] [address] [place] [phone] Asia Oakes MD [address] [place] [phone] Health Maintenance Due Date Last Done Comments Hepatitis B Vaccines (3 of 3 - 3-dose series) 12/26/1998 10/31/1998, 05/01/1998, 04/08/1998 Cervical Cancer Screening: Pap Smear 2007 Cholesterol Screening (Lipid Panel) 07/09/2023 Social Influencers of Health Screening 07/09/2023 Depression Screening 06/09/2024 DTaP,Tdap,and Td Vaccines (8 - Td or Tdap) 11/07/2024 11/07/2014, 11/16/2013, 01/21/2007, Additional history exists COVID-19 Vaccine (2 - 2024- season) 2025 09/30/2020 Influenza Vaccine (#1) 2025 , 03/08/2020, 05/19/2018, Additional history exists RSV Immunization Adult Patients (1 - 1-dose 75+ series) 2061 IPV [...] Completed 01/16/2024 Hepatitis C Screening Completed 01/16/2024 Pneumococcal Vaccine: Pediatrics (0 to 5 Years) and At-Risk Patients (6 to 49 Years) Completed 09/02/2024 Hepatitis A Vaccines Aged [...] Diagnosis Comments XR CHEST 2 VIEWS Routine 02/02/2025 10:31 AM EDT from Last 3 Months Results * XR Chest 2 Views (02/02/2025 10:31 AM EDT) Anatomical Region Laterality Modality Body Radiographic Maria ging us Historical Provider MD TIJERINA XR PROCEDURES Final R esult from Last 3 Months Insurance [facility] Member Subscriber Plan / Payer (Ef fective 2013-Present) Name:EDMOND YA Relation to Subscriber:Self Name:Edmond Ya Payer ID:[id number] Group ID:[id number] Type:Not on file Address: [place] [address] [address] [phone] Care Teams Pneumatic Hoist Operator Relationship Specialty Start Date End Date Kenyatta Perdomo MD [address] [place] [phone] PCP - General 01/20/23
--- OUTSIDE RECORDS SUMMARY | 2025-04-14 14:31 | XMS_ITS | Encounter Summary ---
Author Organization [employer] Address [address] [facility] 7 [place] [address] Care Team Providers Care Web Manager Name Role Phone Kenyatta Perdomo MD Primary Care Provider [phone] Reason for Visit * Reason Comments Med Change Request Encounter Details Date Type Department Care Team ([facility] [address] Contact Info) Description 06/04/2024 Refill [facility] [address] [place], [place] [phone] Kenyatta Perdomo MD [address] [place] [address] Boil of buttock Social History Tobacco Use [...] Description 04/22/2025 10:15 AM EST Office Visit [facility] ADULT DENTAL [address] [place] [address] Sunshine Segovia 04/29/2025 9:00 AM EST Office Visit [facility] MED [facility] P[facility] [address] [place] [address] Kenyatta Perdomo MD [address] [place] [address] documented as of this encounter Visit Diagnoses Diagnosis Boil of buttock Carbuncle and furuncle of buttock documented in this encounter Additional Health Concerns Assessment Noted Time PHQ-9 Depression Total Score: 9 01/16/20 24 9:46 AM EDT documented as of this encounter Care Teams Web Manager Relationship Specialty Start Date End Date Kenyatta Perdomo MD [address] [place] [address] PCP - General Family Medicine 06/09/18 documented as of this encounter
--- OUTSIDE RECORDS SUMMARY | 2025-04-14 14:31 | XMS_ITS | Encounter Summary ---
Author Organization [employer] Address [address] [facility] [address] [place] [address] Care Team Providers Care Outreach Consultant Name Role Phone Kenyatta Perdomo MD Primary Care Provider [phone] Reason for Visit * Reason Comments Med Change Request Encounter Details Date Type Department Care Team ([facility] Contact Info) Description 01/16/2024 Refill C [facility] [address], [place] [id number] Kenyatta Perdomo MD [address] [place] [address] Social History Tobacco Use Types Packs/Day Years [...] AM EDT documented as of this encounter Functional Status * Over the past 2 weeks, how often have you been bothered by any of the following problems? Question Answer Date of Assessment Author Patient Health Questionnaire -2 Score 2 01/16/2024 9:46 AM Love Looney [place] * If you checked off any problems on this questionnaire so far, Question Answer Date of Assessment Author How difficult have these problems made it for you to do your work, take care of things at home, or get along with other people? Not difficult at all 01/16/2024 9:46 AM Love Looney [place] * Over the past 2 weeks, how often have you been bothered by any of the following problems? Question Answer Date of Assessment Author Little interest or pleasure in doing things Several days 01/16/2024 9:46 AM Trisha Looney [place] Feeling down, depressed, or hopeless Several days 01/16/2024 9:46 AM Love Looney [place] Trouble falling or staying asleep, or sleeping too much Several days 01/16/2024 9:46 AM Love Looney [place] Feeling tired or having little energy Several days 01/16/2024 9:46 AM Love Looney [place] Poor appetite or overeating More than half the days 01/16/2024 9:46 AM Love Looney [place] Feeling bad about yourself - or that you are a failure or have let yourself or your family down Several days 01/16/2024 9:46 AM Love Looney [place] Trouble concentrating on things, such as reading the newspaper or watching television More than half the days 01/16/2024 9:46 AM Love Looney [place] Moving or speaking so slowly that other people could have noticed? Or the opposite - being so fidgety or restless that you have been moving around a lot more than usual. Not at all 01/16/2024 9:46 AM Love Looney [place] Thoughts that you would be better off or hurting yourself in some way Not at all 01/16/2024 9:46 AM Love Looney [place] Patient Health Questionnaire-9 Score 9 01/16/2024 9:46 AM Deandra Looney [place] documented as of this encounter Plan of Treatment Upcoming Encounters Date Type Department Care Team (Late st Contact Info) Description 04/22/2025 10:15 AM EST Office Visit [facility] [address] [place] [address] Sunshine Segovia 04/29/2025 9:00 AM EST Office Visit [facility] MED [facility]ED[facility] [address] [place] [address] Kenyatta Perdomo MD [address] [place] [address] documented as of this encounter Visit Diagnoses Not on filedocumented in this encounter Additional Health Concerns Assessment Noted Time PHQ-9 Depression Total Score: 9 01/16/20 24 9:46 AM EDT documented as of this encounter Care Teams Outreach Consultant Relationship Specialty Start Date End Date Kenyatta Perdomo MD [address] [place] [address] PCP - General Family Medicine 06/09/18 documented as of this encounter
== END 2025-04-14 12:04 | disposition home or self-care (01) ==
LOC: HO.HUSH 11:31
PROVIDERS: PCP Pediatrics; Visit Provider Nurse Practitioner Family
DX: Z13.9 Encounter for screening, unspecified (principal)

== ENCOUNTER → 2025-04-14 11:31 | Outpatient (BNVA) | payer OTHER, SELFPAY | PROVIDERS: PCP Pediatrics; Visit Provider Nurse Practitioner Family | DX: N20.0 Calculus of kidney (principal); N35.92 Unspecified urethral stricture, female; R30.0 Dysuria; N39.0 Urinary tract infection, site not specified | CPT/HCPCS: 51798; 81003; 99212 ==

== ENCOUNTER 2025-04-22 18:23 | Outpatient (REF) | payer OTHER, SELFPAY | END 2025-04-22 18:24 | disposition home or self-care (01) | LOC: HO.HHCLNP 18:23 | PROVIDERS: Visit Provider Family Medicine | DX: J02.9 Acute pharyngitis, unspecified (principal) | CPT/HCPCS: 87070; 87147 ==